=== PATIENT | male | born 1945 | race Caucasian/White ===

== ENCOUNTER 2016-06-22 16:47 | Emergency (ER) | payer MEDICARE ==
[2016-06-22 17:03] VITALS: BP 125/68
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
[2016-06-22] MEDS ORDERED: Acetaminophen TAB* 325 MG PO ONE (17:41)
--- NOTE | 2016-06-22 18:19 | RAD ---
INDICATION: Cough and fever COMPARISON: Chest x-ray dated August 04, 2015 TECHNIQUE: PA and lateral views of the chest were obtained. FINDINGS: The heart and mediastinum are normal in size and contour. At the bilateral lung bases there are symmetric subcentimeter densities that are most consistent with nipple shadows. The lungs are grossly clear. There is no evidence of large pleural effusion. Visualized bones are normal for the patient's age. There is no radiographic evidence of free air beneath the diaphragm IMPRESSION: No radiographic evidence of acute cardiopulmonary disease.
[2016-06-22] MEDS ORDERED: guaiFENesin/CODIEN 100MG-10MG* 5 ML UDC PO ONE (18:33)
== END 2016-06-22 18:45 | disposition home or self-care (01) ==
LOC: UCEAST 16:47
DX: J06.9 Acute upper respiratory infection, unspecified (principal); Z96.642 Presence of left artificial hip joint; Z87.891 Personal history of nicotine dependence
CPT/HCPCS: 71020; 99212; A9270-GY; G0463

== ENCOUNTER 2016-06-30 09:15 | Emergency (ER) | payer MEDICARE ==
[2016-06-30 09:43] VITALS: BP 114/72
[2016-06-30] MEDS ORDERED: Ipratropium 0.5MG/2.5ML NEB* 0.5 MG/2.5 ML NEB.SOLN INH ONE (09:53)
[2016-06-30] MEDS ORDERED: Albuterol 2.5 MG/3 ML NEB.SOL* (0.083%) INH ONE (09:53)
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
== END 2016-06-30 10:49 | disposition home or self-care (01) ==
LOC: UCEAST 09:15
DX: J20.9 Acute bronchitis, unspecified (principal); Z96.642 Presence of left artificial hip joint; Z87.891 Personal history of nicotine dependence
CPT/HCPCS: 99212; G0463; J7644

== ENCOUNTER 2016-07-21 10:36 | Emergency (ER) | payer MEDICARE ==
[2016-07-21 11:05] VITALS: BP 126/74
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
== END 2016-07-21 11:57 | disposition home or self-care (01) ==
LOC: UCEAST 10:36
DX: S86.912A Strain of unspecified muscle(s) and tendon(s) at lower leg level, left leg, initial encounter (principal); W18.40XA Slipping, tripping and stumbling without falling, unspecified, initial encounter; Y93.9 Activity, unspecified; Y92.9 Unspecified place or not applicable; M11.262 Other chondrocalcinosis, left knee; Z79.82 Long term (current) use of aspirin; Z96.642 Presence of left artificial hip joint; Z87.891 Personal history of nicotine dependence
CPT/HCPCS: 99211; G0463

== ENCOUNTER 2017-03-28 07:59 | Emergency (ER) | payer BC, MEDICARE ==
[2017-03-28 08:12] VITALS: BP 122/67
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
== END 2017-03-28 08:55 | disposition home or self-care (01) ==
LOC: UCEAST 07:59
DX: J06.9 Acute upper respiratory infection, unspecified (principal); Z87.891 Personal history of nicotine dependence
CPT/HCPCS: 99212; G0463

== ENCOUNTER 2017-04-15 10:44 | Emergency (ER) | payer BC ==
[2017-04-15 10:55] VITALS: BP 110/59
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
== END 2017-04-15 12:10 | disposition home or self-care (01) ==
LOC: UCEAST 10:44
DX: J01.90 Acute sinusitis, unspecified (principal); B96.89 Other specified bacterial agents as the cause of diseases classified elsewhere; R19.7 Diarrhea, unspecified; Z87.891 Personal history of nicotine dependence; K21.9 Gastro-esophageal reflux disease without esophagitis
CPT/HCPCS: 99212; G0463

== ENCOUNTER 2017-06-04 13:40 | Emergency (ER) | payer MEDICARE ==
[2017-06-04 14:55] VITALS: BP 110/79
--- NOTE | 2017-06-04 15:34 | RAD ---
INDICATION: Right hip pain. COMPARISON: There are no prior studies available for comparison. TECHNIQUE: An AP view of the pelvis and frontal and lateral views of the right hip were obtained. FINDINGS: The patient is status post total left hip replacement surgery. There is deformity of the proximal left femur most consistent with posttraumatic change. There is mild to moderate osteoarthritic change in the right hip. There is calcification adjacent to the lateral aspect of the right femoral head consistent with chondrocalcinosis or possibly a loose body. IMPRESSION: MILD TO MODERATE OSTEOARTHRITIC CHANGE IN THE RIGHT HIP. IN ADDITION THERE IS CALCIFICATION ADJACENT TO THE RIGHT FEMORAL HEAD SUGGESTIVE OF CHONDROCALCINOSIS OR POSSIBLY A LOOSE BODY. IF THE PATIENT'S SYMPTOMS PERSIST RECOMMEND MR IMAGING FOR FURTHER EVALUATION.
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
[2017-06-04] MEDS ORDERED: Ketorolac INJ* 30 MG/ML 1 ML VIAL IM ONE (15:54)
== END 2017-06-04 16:50 | disposition home or self-care (01) ==
LOC: UCEAST 13:40
DX: M16.11 Unilateral primary osteoarthritis, right hip (principal); Z87.891 Personal history of nicotine dependence
CPT/HCPCS: 96372; 99212; G0463; J1885

== ENCOUNTER 2017-06-11 11:55 | Emergency (ER) | payer MEDICARE ==
[2017-06-11 14:12] VITALS: BP 114/67
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
== END 2017-06-11 14:43 | disposition home or self-care (01) ==
LOC: UCEAST 11:55
DX: M25.551 Pain in right hip (principal); Z76.0 Encounter for issue of repeat prescription; Z79.82 Long term (current) use of aspirin; Z96.642 Presence of left artificial hip joint; Z87.891 Personal history of nicotine dependence
CPT/HCPCS: 99212; G0463

== ENCOUNTER 2017-08-05 10:52 | Inpatient (IN) | payer MEDICARE ==
--- NOTE | 2017-07-23 07:56 | HP ---
HISTORY AND PHYSICAL: DATE OF ADMISSION/SURGERY: 08/05/17 SURGEON: Halima Turner MD.* (DICTATED BY [facility]) PROCEDURE: Right total hip arthroplasty. CHIEF COMPLAINT: Right hip pain. HISTORY OF PRESENT ILLNESS: Mr. Gordon is a 71-year-old gentleman with complaints of right hip pain. He has failed conservative management and has elected to proceed with a right total hip arthroplasty, which is scheduled for 08/05/[address] Turner. PAST MEDICAL HISTORY: 1. Crohn's disease. 2. Acid reflux. PAST SURGICAL HISTORY: 1. Bowel resection x2. 2. Right knee surgery, unknown. 3. Left total hip arthroplasty. 4. ORIF of the left femur. 5. Tonsillectomy. CURRENT MEDICATIONS: 1. Questran. 2. Vitamin B12. 3. Aspirin 81 mg daily. 4. Lomotil. 5. Tamsulosin 0.4 mg daily. 6. Tramadol as needed. 7. Escitalopram 5 mg daily. 8. Iron. 9. Multivitamin. 10. Ranitidine 300 mg at bedtime. ALLERGIES: None. FAMILY HISTORY: Cancer, aneurysm and coronary artery disease. SOCIAL HISTORY: This is a 71-year-old gentleman who lives with his . He does not smoke or use drugs. Uses occasional alcohol. REVIEW OF SYSTEMS: A complete 14-point review of systems was reviewed with the patient, was all negative or noncontributory. PHYSICAL EXAMINATION GENERAL: He is well developed, well nourished, in no acute distress. VITAL SIGNS: He stands 5 feet 6 inches tall, weighs 197 pounds. His blood pressure is 124/81, his heart rate is 72. HEENT: Normocephalic, atraumatic. NECK: Supple. No palpable lymph nodes. PULMONARY: Lungs are clear to auscultation bilaterally. CARDIO: Regular rate and rhythm. Strong S1, S2. ABDOMEN: Soft, nontender, nondistended. NEUROLOGICAL: He is alert and oriented x3. Cranial nerves II through XII are intact. MUSCULOSKELETAL: Right lower extremity, the skin is intact. There are no open wounds or abrasions. He walks with an antalgic-type gait favoring his right hip. He has decreased internal and external rotation of the right hip, 2+ dorsalis pedis pulses and intact sensation. ASSESSMENT AND PLAN: Mr. Gordon is a 71-year-old gentleman with complaints of right hip pain secondary to end-stage osteoarthritis. He has failed conservative management and elected to proceed with a right total hip arthroplasty, which is scheduled for 08/05/[address] Turner discussed the risks and benefits of the surgery at today's visit and all of his questions were answered. He will follow with Dr. Turner 2 weeks after the surgery. [facility]GO AHN [id number]/[facility] #: [id number] MTDElly
[~2017-08-05 10:52] MED LIST: Buffered Lidocaine 0.9% SYRIN* 5 ML/SYR SYRINGE INTRADERM ONE; DiMENhydriNATE IV* 50 MG/ML VIAL IV PUSH PRN; Famotidine IV* 10 MG/ML 2 ML (20 mg) IV ONE; Midazolam* 1 MG/ML 10 ML VIAL (10 MG) ONE; Morphine INJ* 2 MG/ML 1 ML CARPUJECT IV PRN; Naloxone* 0.4 MG/ML 1 ML VIAL IV PRN; PROCHLORPERAZINE INJ 5 MG/ML 2 ML VIAL IV PRN; Ropivacaine 0.2% EPIDURAL* 200 MG/100 ML BAG EPIDURAL ONE; Scopolamine 1.5 mg* PATCH TRANSDERM PRN; fentaNYL* 50 MCG/ML 2 ML VIAL (100 MCG VIAL) ONE
[2017-08-05] MEDS ORDERED: Famotidine IV* 10 MG/ML 2 ML (20 mg) ONE (11:10)
[2017-08-05] MEDS ORDERED: ceFAZolin 2 GM PREMIX (*) 2 GM/50 ML BAG IVPB ONE (11:10)
--- NOTE | 2017-08-05 14:57 | RAD ---
INDICATION: Operative right hip film COMPARISON: June 04, 2017 TECHNIQUE: An intraoperative crosstable lateral images obtained FINDINGS: The single image obtained for sizing demonstrates initiation of right hip arthroplasty with placement of femoral stem for sizing.
[2017-08-05] MEDS ORDERED: EPHEDrine (Pressors)* 50 MG/ML VIAL ONE (15:04)
[2017-08-05] MEDS ORDERED: Dexamethasone IV* 4 MG/ML 1 ML (4 MG) ONE (15:04)
[2017-08-05] MEDS ORDERED: Phenylephrine INJ* 10 MG/ML 1 ML VIAL (10 MG) ONE (15:04)
[2017-08-05] MEDS ORDERED: Ondansetron INJ* 2 MG/ML VIAL ONE (15:04)
[2017-08-05] MEDS ORDERED: Lidocaine 2% PF * 5 ML VIAL ONE (15:04)
[2017-08-05] MEDS ORDERED: Cyclobenzaprine TAB* 10 MG PO PRN (15:32)
[2017-08-05] MEDS ORDERED: Bisacodyl SUPP* 10 MG SUPP PR PRN (15:32)
[2017-08-05] MEDS ORDERED: Ondansetron INJ* 2 MG/ML VIAL IV PRN (15:32)
[2017-08-05] MEDS ORDERED: Polyethylene Glycol 3350* 17 GM PACKET PO PRN (15:32)
[2017-08-05] MEDS ORDERED: Acetaminophen TAB* 325 MG PO PRN (15:32)
[2017-08-05] MEDS ORDERED: Ondansetron TAB* 4 MG PO PRN (15:32)
[2017-08-05] MEDS ORDERED: oxyCODONE/Acetamin 5/325 MG* TAB PO PRN (15:32)
[2017-08-05] MEDS ORDERED: diPHENhydraMINE PO* 25 MG PO PRN (15:32)
[2017-08-05] MEDS ORDERED: diPHENhydraMINE IV* 50 MG/ML 1 ml VIAL (BENADRYL) IV PRN (15:32)
[2017-08-05] MEDS ORDERED: Morphine INJ* 2 MG/ML 1 ML CARPUJECT IV PRN (15:32)
[2017-08-05] MEDS ORDERED: Magnesium Hydroxide LIQ* 30 ML UDC PO PRN (15:32)
[2017-08-05] MEDS ORDERED: traMADol TAB* 50 MG PO PRN (15:39)
[2017-08-05] MEDS ORDERED: fentaNYL* 50 MCG/ML 2 ML VIAL (100 MCG VIAL) ONE (16:00)
[2017-08-05] MEDS: fentaNYL* 50 MCG/ML 2 ML VIAL (100 MCG VIAL) IV PRN ×4 (16:01→16:10)
--- NOTE | 2017-08-05 16:50 | RAD ---
INDICATION: Status post right hip total arthroplasty TECHNIQUE: An AP view of the pelvis and 2 views of the right hip were obtained. FINDINGS: In the AP view of the bilateral hip prostheses are anatomically aligned. The right hip prosthesis is anatomically aligned in the AP and lateral projections. The visualized bones are intact and appropriately aligned. IMPRESSION: Anatomic alignment of recently installed right hip prosthesis.
[2017-08-05] MEDS ORDERED: Warfarin TAB(*) 6 MG PO ONE (17:00)
[2017-08-05] MEDS: oxyCODONE/Acetamin 5/325 MG* TAB PO PRN ×2 (17:14→21:05)
[2017-08-05] MEDS: Tamsulosin CAP* 0.4 MG PO SCH (17:54)
[2017-08-05] MEDS: Citalopram TAB* 10 MG PO SCH (17:55)
[2017-08-05] MEDS: ceFAZolin 1 GM in Dextrose (*) 1 GM/50 ML BAG IVPB SCH (21:05)
[2017-08-05] MEDS: Docusate CAP* 100 MG PO SCH (21:07)
[2017-08-05] MEDS: Diphenoxylat/Atrop 2.5-0.025M* 1 TAB PO SCH (21:07)
[2017-08-05] MEDS: Magnesium Hydroxide LIQ* 30 ML UDC PO SCH (21:07)
[2017-08-05] MEDS: Temazepam CAP* 15 MG PO PRN (23:46)
[2017-08-06] MEDS: ceFAZolin 1 GM in Dextrose (*) 1 GM/50 ML BAG IVPB SCH ×2 (04:50→12:36)
[2017-08-06 05:44] LABS: Hematocrit 28 % (42-52); Hemoglobin 9.4 g/dl (14.0-18.0); Mean Platelet Volume 7.5 um3 (7.4-10.4); Platelet Count 233 10^3/ul (150-450)
[2017-08-06 05:53] LABS: INR 1.1 (0.77-1.02)
[2017-08-06 06:04] LABS: EGFR Non-African American 87.2 (>60)
[2017-08-06] MEDS: oxyCODONE/Acetamin 5/325 MG* TAB PO PRN ×2 (06:22→12:36)
[2017-08-06] MEDS: Magnesium Hydroxide LIQ* 30 ML UDC PO SCH ×2 (08:19→21:26)
[2017-08-06] MEDS: oxyCODONE TAB* 5 MG TAB PO PRN ×3 (08:19→21:45)
[2017-08-06] MEDS: Docusate CAP* 100 MG PO SCH ×2 (08:19→21:26)
[2017-08-06] MEDS: Famotidine TAB* 20 MG PO SCH (08:19)
[2017-08-06] MEDS: Cholestyramine Resin* 4 GM POWDER PO SCH (08:21)
[2017-08-06] MEDS: Diphenoxylat/Atrop 2.5-0.025M* 1 TAB PO SCH ×3 (08:32→21:26)
--- NOTE | 2017-08-06 09:45 | PN ---
Progress Note - Progress Note Date of Service: 08/06/17 SOAP: Subjective: []Patient seen out of bed in chair. He is s/p right total hip replacement on . He feels well with zero hip pain at this time. Denies CP, SOB, dizziness, nausea or leg numbness. Objective: [] Vital Signs Temp 97.9 F 08/06/17 07:20 Pulse 88 08/06/17 07:20 Resp 18 08/06/17 08:25 BP 117/60 08/06/17 07:20 Pulse Ox 96 08/06/17 07:20 Intake & Output 08/05/17 08/06/17 08/06/17 18:59 06:59 18:59 Intake Total 4050 1040 210 Output Total 1450 1550 495 Balance 2600 -510 -285 Weight 202 lb 12.8 oz Intake: IV Fluids 4050 LR 4000 NS 50ML, Cefazolin 2G 50 Oral 1040 210 Output: Urine 495 Angelo 450 1550 Estimated Blood Loss 1000 Other: # Bowel Movements 0 Laboratory Last Values Hgb 9.4 g/dl (14.0-18.0) L 08/06/17 04:54 Hct 28 % (42-52) L 08/06/17 04:54 Plt Count 233 10^3/ul (150-450) 08/06/17 04:54 MPV 7.5 um3 (7.4-10.4) 08/06/17 04:54 INR (Anticoag Therapy) 1.10 (0.77-1.02) H 08/06/17 04:54 Sodium 137 mmol/L (139-145) L 08/06/17 04:54 Potassium 4.2 mmol/L (3.5-5.0) 08/06/17 04:54 Chloride 104 mmol/L (101-111) 08/06/17 04:54 Carbon Dioxide 26 mmol/L (22-32) 08/06/17 04:54 Anion Gap 7 mmol/L (2-11) 08/06/17 04:54 BUN 14 mg/dL (6-24) 08/06/17 04:54 Creatinine 0.86 mg/dL (0.67-1.17) 08/06/17 04:54 Est GFR ( Amer) 112.1 (>60) 08/06/17 04:54 Est GFR (Non-Af Amer) 87.2 (>60) 08/06/17 04:54 BUN/Creatinine Ratio 16.3 (8-20) 08/06/17 04:54 Glucose 129 mg/dL (70-100) H 08/06/17 04:54 Calcium 8.6 mg/dL (8.6-10.3) 08/06/17 04:54 General: Well appearing, NAD RLE: Dressing of right hip CDI without surrounding erythema or edema. DF/PF intact. Sensation intact distally. DP/PT 2+ and capillary refill less than two second distally. BL LE: Calves supple and nontender without erythema, edema or palpable cords Assessment: []POD 1 sp right total hip arthroplasty 08/05 Dr Turner Plan: []WBAT PT/OT Lovenox, coumadin 6 mg today Plan for DC home tomorrow
[2017-08-06] MEDS: Enoxaparin(*) 40 MG/0.4 ML SYR SUBCUT SCH (12:36)
--- NOTE | 2017-08-06 15:24 | OP ---
DATE OF OPERATION: 08/05/17 - ROOM #341 DATE OF : 41 SURGEON: Haliam Turner MD CARE PROGRAM RESIDENT: MARGO Price. Ms. Andrews did help throughout the procedure with preparation of the leg, wound retraction, manipulation of the hip , and wound closure. ANESTHESIOLOGIST: Dr. Roger. ANESTHESIA: Spinal. PRE-OP DIAGNOSIS: Severe end-stage degenerative osteoarthritis of the right hip joint. POST-OP DIAGNOSIS: Severe end-stage degenerative osteoarthritis of the right hip joint. OPERATIVE PROCEDURE: Right total hip arthroplasty. COMPLICATIONS: None. ESTIMATED BLOOD LOSS: 400 cc. SPECIMENS: Femoral head and acetabular reamings sent to Pathology. HARDWARE USED: This is uncemented Cecilia total hip arthroplasty hardware. For the cup, a Tritanium cluster hole shell 54E. Two screws were used, these were torque 6.5 cancellous bone screws of length 16 mm and 20 mm. For the polyethylene, a Trident X3, 10-degree polyethylene insert 36E. For the stem, an Accolade TMZF size 2.5 with a 127-degree neck, a Biolox delta ceramic V40 femoral head 36 +2.5 was used for the femoral head. BRIEF HISTORY/INDICATIONS: Mr. Gordon is a 71-year-old with several months of increasingly severe right hip pain. Radiographs confirmed severe arthritis. He failed conservative treatment with anti-inflammatories, pain medications, and physical therapy. Due to continued pain and decreased quality of life, he elected to undergo right total hip arthroplasty. Informed consent was obtained from the patient. He understood the risks of surgery included but were not limited to bleeding, infection, damage to nearby structures, continued pain, need for further surgery, intraoperative fracture, nerve palsy, hardware failure or loosening, dislocation, leg length discrepancy, stroke, heart attack , blood clot, and . He wished to proceed. INTRAOPERATIVE FINDINGS: Intraoperatively, the patient was noted to have complete loss of cartilage along the femoral head and acetabulum. There was significant osteophyte formation around the acetabulum. DESCRIPTION OF PROCEDURE: Mr. Gordon was identified in the preanesthesia unit. His right lower extremity was marked as the correct operative site. Informed consent was signed and placed in the chart. The patient was taken to the operating room and placed under spinal anesthesia. A Angelo catheter was placed. The patient was placed in the left lateral decubitus position on the peg board. All bony prominences were well padded. Right lower extremity was prepped and draped in the usual sterile fashion. Preop time-out was made to correctly identify the patient side and site. Appropriate perioperative antibiotics were given within 1 hour of incision. A 14-cm standard posterior hip incision was made with a 10 blade and carried down to the lateral fascia layer. Lateral fascia layer was then excised in line of the skin incision. Charnley retractor was placed. The piriformis and conjoint tendons were identified. These were elevated off the posterolateral femur using electrocautery and tagged with #5 Ethibond. Next, electrocautery was used to make a standard posterolateral capsular flap and this was also tagged with #5 Ethibond. The hip was carefully dislocated. Lesser troch to the center of the femoral head measured 52 mm. Oscillating saw was used to make the appropriate femoral neck cut. The femoral head was carefully removed. The femur was retracted anteriorly. After appropriate placement of retractors, the acetabulum was well visualized. A long-handled knife was used to sharply remove any remaining labrum from the acetabular rim. The acetabulum was sequentially reamed up to a size 53. The 53 reamer obtained bleeding subchondral bone bed. The 53 trial had good fit. Final insert chosen was a Tritanium cluster hole shell 54E. This was impacted into the acetabulum. Good stability was achieved as well as appropriate anteversion and abduction angle. A single 60-mm screw and a single 20-mm screw were placed in the superior posterior quadrant for extra stability. The liner chosen was a Trident X3 10- degree polyethylene liner 36E. This was locked in position. This was impacted into the acetabular cup. Stability of the liner was checked and rechecked, and noted to be stable. Next, attention was turned to preparation of the proximal femur. A canal finder was used to enter the proximal femur. The proximal femur was sequentially broached up to a size 2.5. The 2.5 broach had excellent stability and appropriate anteversion. A 127 neck trial with a 36 +0 head trial was chosen. This measured 50 mm. Therefore, a 36 +2.5 head trial was chosen. This measured 52 mm. The hip was released and taken through a range of motion. The hip was stable in all positions. Soft tissue tension was deemed to be appropriate as was leg length. The hip was carefully dislocated. All trials were removed. The final implant chosen was an Accolade TMZF size 2.5 with a 127 degree neck. Final head chosen was a Biolox ceramic V40 femoral head 36 + 2.5. The femoral stem was impacted into the canal without difficulty. Excellent stability and appropriate anteversion were obtained. The head was then impacted down to the femoral neck. The lesser troch to the center of the femoral head, final measurement was 51 mm. The hip was carefully reduced. Soft tissue tension was more appropriate. The hip was carefully reduced. The hip was taken through a range of motion and was stable in all positions. The hip was copiously irrigated with sterile saline. Previously tagged capsule and tendons were reapproximated to the posterolateral femur through 2 trochanteric drill holes. The lateral fascia layer was closed using interrupted #1 Vicryl. The rest of the incision was closed in a layered fashion using 0 and 2- 0 Vicryl. Skin was closed using running 3-0 Monocryl and Dermabond. Sterile Adaptic, 4x4's, and paper tape were used to cover the incision. The patient's anesthesia was reversed without difficulty. He was taken to the PACU in stable condition. Intended weightbearing will be weightbearing as tolerated. Intended DVT prophylaxis will be Coumadin with a Lovenox bridge. [id number]/[facility] #: [id number] SHAYAN
[2017-08-06] MEDS ORDERED: Warfarin TAB(*) 6 MG PO SCH (17:00)
[2017-08-06] MEDS: Citalopram TAB* 10 MG PO SCH (18:03)
[2017-08-06] MEDS: Tamsulosin CAP* 0.4 MG PO SCH (18:03)
[2017-08-06] MEDS: Temazepam CAP* 15 MG PO PRN (21:30)
[2017-08-07 05:58] LABS: Hematocrit 25 % (42-52); Hemoglobin 8.7 g/dl (14.0-18.0); Mean Platelet Volume 7.5 um3 (7.4-10.4); Platelet Count 222 10^3/ul (150-450)
[2017-08-07 06:03] LABS: INR 1.04 (0.77-1.02)
[2017-08-07] MEDS: Cholestyramine Resin* 4 GM POWDER PO SCH (08:23)
[2017-08-07] MEDS: Diphenoxylat/Atrop 2.5-0.025M* 1 TAB PO SCH ×3 (08:23→20:32)
[2017-08-07] MEDS: Docusate CAP* 100 MG PO SCH ×2 (08:24→20:35)
[2017-08-07] MEDS: oxyCODONE/Acetamin 5/325 MG* TAB PO PRN ×4 (08:24→22:07)
[2017-08-07] MEDS: Famotidine TAB* 20 MG PO SCH (08:24)
[2017-08-07] MEDS ORDERED: NS 0.9% 1000 ML* 500 ML IV SCH (10:30)
[2017-08-07] MEDS: Magnesium Hydroxide LIQ* 30 ML UDC PO SCH ×2 (10:31→20:35)
[2017-08-07] MEDS ORDERED: NS 0.9% 500 ML* 500 ML IV ONE (11:00)
--- NOTE | 2017-08-07 12:08 | PN ---
Progress Note - Progress Note Date of Service: 08/07/17 SOAP: Subjective: 71 y/o male s/p R ELY by DR. Turner 08/05. Patient had episodes of dizziness this AM with + orthostatic hypotension. VSS, afebrile overnight. Objective: General- Well appearing, NAD, AO Resting in bed comfortably MSK- RLE- DF/PF = b/l, PT 2+, negative homans sign b/l, dressing changed this AM by Dr. Turner, viewed- minimal ecchymosis, no drainage noted, no induration. Vital Signs Temp 99.2 F 08/07/17 10:59 Pulse 115 08/07/17 11:05 Resp 16 08/07/17 10:59 BP 108/53 08/07/17 11:05 Pulse Ox 95 08/07/17 11:05 Intake & Output 08/06/17 08/07/17 08/07/17 18:59 06:59 18:59 Intake Total 930 2620 150 Output Total 920 1050 150 Balance 10 1570 0 Intake: Oral 930 2620 150 Output: Urine 920 1050 150 Other: # Bowel Movements 0 0 Assessment: Stable 71 y/o male s/p R ELY by DR. Turner 08/05. Plan: - DVT prophylaxis- lovenox, coumadin 9mg tonight. - Continue PT/ OT - fall precautions - Follow up with Dr. Turner within 10-14 days - H&H - post-op anemia, stable - post-op IV ABX - complted. - Post-op orthostatic hypotension- Receiving bolus, refused blood but will accept if not improved by this afternoon. - Possible D/C to home tomorrow. Acetaminophen (Tylenol Tab*) 650 mg PO Q4H PRN PRN Reason: PAIN OR TEMPERATURE Bisacodyl (Dulcolax Supp*) 10 mg [place] DAILY PRN PRN Reason: constipation Cholestyramine Resin (Questran*) 8 gm PO QAM [facility] Last Admin: 08/07/17 08:23 Dose: Not Given Citalopram Hydrobromide (Celexa Tab*) 10 mg PO QPM [facility] PRN Reason: Protocol Last Admin: 08/06/17 18:03 Dose: 10 mg Cyclobenzaprine HCl (Flexeril Tab*) 10 mg PO TID PRN PRN Reason: SPASMS Last Admin: 08/07/17 10:30 Dose: 10 mg Diphenhydramine HCl (Benadryl Iv*) 25 mg IV Q6H PRN PRN Reason: itching Diphenhydramine HCl (Benadryl Po*) 25 mg PO Q6H PRN PRN Reason: itching Last Admin: 08/05/17 21:07 Dose: 25 mg Diphenoxylate HCl/Atropine (Lomotil Tab*) 2 tab PO TID [facility] Last Admin: 08/07/17 08:23 Dose: Not Given Docusate Sodium (Colace Cap*) 100 mg PO BID [facility] Last Admin: 08/07/17 08:24 Dose: 100 mg Enoxaparin Sodium (Lovenox(*)) 40 mg SUBCUT Q24H [facility] Last Admin: 08/06/17 12:36 Dose: 40 mg Famotidine (Pepcid Tab*) 40 mg PO QAM [facility] PRN Reason: Protocol Last Admin: 08/07/17 08:24 Dose: 40 mg Lactated Ringer's (Lactated Ringers 1000 Ml Bag*) 1,000 mls @ 100 mls/hr IV PER RATE [facility] Last Admin: 08/05/17 17:01 Dose: 100 mls/hr Lactulose (Lactulose*) 30 ml PO Q6H PRN PRN Reason: constipation Magnesium Hydroxide (Milk Of Magnesia Liq*) 30 ml PO BID [facility] Last Admin: 08/07/17 10:31 Dose: 30 ml Magnesium Hydroxide (Milk Of Magnesia Liq*) 30 ml PO Q6H PRN PRN Reason: constipation Morphine Sulfate (Morphine Inj (Syringe)*) 2 mg IV Q2H PRN PRN Reason: PAIN - BREAKTHROUGH Ondansetron HCl (Zofran Inj*) 4 mg IV Q6H PRN PRN Reason: nausea Ondansetron HCl (Zofran Tab*) 4 mg PO Q6H PRN PRN Reason: NAUSEA Oxycodone HCl (Roxycodone Tab*) 10 mg PO Q4H PRN PRN Reason: PAIN Last Admin: 08/06/17 21:45 Dose: 10 mg Oxycodone/Acetaminophen (Percocet 5/325 Tab*) 2 tab PO Q4H PRN PRN Reason: PAIN Last Admin: 08/07/17 08:24 Dose: 2 tab Oxycodone/Acetaminophen (Percocet 5/325 Tab*) 1 tab PO Q4H PRN PRN Reason: PAIN Polyethylene Glycol/Electrolytes (Miralax*) 17 gm PO DAILY PRN PRN Reason: Constipation Tamsulosin HCl (Flomax Cap*) 0.8 mg PO QPM [facility]IS Last Admin: 08/06/17 18:03 Dose: 0.8 mg Temazepam (Restoril Cap*) 15 mg PO BEDTIME PRN PRN Reason: INSOMNIA Last Admin: 08/06/17 21:30 Dose: 15 mg Tramadol HCl (Ultram*) 50 mg PO Q8HR PRN PRN Reason: PAIN Warfarin Sodium (Coumadin Tab(*)) 8 mg PO ONCE@1700 ONE PRN Reason: Protocol Stop: 08/07/17 17:01
[2017-08-07] MEDS: Enoxaparin(*) 40 MG/0.4 ML SYR SUBCUT SCH (12:27)
[2017-08-07] MEDS ORDERED: Warfarin TAB(*) 4 MG PO ONE (17:00)
[2017-08-07] MEDS: Tamsulosin CAP* 0.4 MG PO SCH (17:09)
[2017-08-07] MEDS: Citalopram TAB* 10 MG PO SCH (17:09)
--- NOTE | 2017-08-07 17:23 | CONS ---
CONSULTATION REPORT: DATE OF CONSULT: 08/07/17 ATTENDING PHYSICIAN: Halima Turner MD CONSULTING PHYSICIAN: Keo Arthur MD (dictation provided by Bonnie Strickland NP) REASON FOR CONSULT: Presyncope. HISTORY OF PRESENT ILLNESS: Mr. Gordon is a 71-year-old male with a past medical history of Crohn's disease and GERD who presented to the hospital on for right total hip arthroplasty. Please see the dictated H and P from Dr. Turner for complete details. In brief, the patient went for surgery on 08/05 and was reported to have tolerated the surgery well. There was reported to be about 400 estimated blood loss during that procedure. The patient was doing well until today when he went to get up out of bed, he became suddenly quite lightheaded and did not feel well. His blood pressure was checked and it was noted to be systolically about in the 90s. He was lied back down on the bed and then IV fluids were started and orthostatic vitals were rechecked. The patient is not orthostatic by vital signs criteria. His blood pressure is running about 108/53 with a heart rate of around 100. IV fluids continue. PAST MEDICAL HISTORY: 1. Crohn's. 2. GERD. PAST SURGICAL HISTORY: 1. Bowel resection x2. 2. Right knee surgery. 3. Left total hip arthroplasty. 4. ORIF of the left femur. 5. Tonsillectomy. MEDICATIONS: As outpatient are: 1. Aspirin 81 mg p.o. q.a.m. 2. Iron 1 tab p.o. q.a.m. 3. Multivitamin with mineral 1 tab p.o. q.a.m. 4. Vitamin B12 injections monthly. 5. Cholestyramine 2 packets p.o. q.a.m. 6. Lomotil 2 tabs p.o. t.i.d. 7. Escitalopram 5 mg p.o. q. p.m. 8. Ranitidine 300 mg p.o. q. a.m. 9. Tamsulosin 0.8 mg p.o. q. p.m. 10. Tramadol 50 mg p.o. q.8 hours p.r.n. ALLERGIES: No known drug allergies. FAMILY HISTORY: Reviewed and noncontributory. SOCIAL HISTORY: No report of alcohol, tobacco, or drug use. His will be the healthcare proxy. REVIEW OF SYSTEMS: A 14-point review of systems was completed with Mr. Gordon and all those not mentioned above were negative. PHYSICAL EXAM: Vital Signs: Temperature 99.2, pulse rate 91, respiratory rate 16, O2 saturation 96% on room air, and blood pressure 100/48. General: Mr. Gordon is lying in the bed, he says he feels well now and has no symptoms of lightheadedness or dizziness or nausea. He appears in no acute distress. Neuro : He is alert, he is oriented x3, he moves all extremities equally. There is no facial asymmetry or focal weakness. Extraocular movements are intact. Heart : S1 and S2. No murmurs, rubs, or gallops and regular. Lungs are clear to auscultation bilaterally. No accessory muscle use and good aeration. Abdomen is soft and nontender with bowel sounds positive x4. Extremities: No cyanosis or edema. Skin is intact. DIAGNOSTIC STUDIES/LAB DATA: Hemoglobin preop was 13.5, it is 8.7 today. INR is 1.04. Sodium 137, potassium 4.2, chloride 104, serum bicarbonate 26, BUN 14 , creatinine 0.86, glucose 129. ASSESSMENT/PLAN: Mr. Gordon is a 71-year-old male with a past medical history of Crohn's and gastroesophageal reflux disease who presented to the hospital on 08/05/17 for right total hip arthroplasty. Our plans and recommendations are as follows: 1. Right total hip arthroplasty. The patient tolerated the procedure well, but is now presyncopal on standing. His hemoglobin has fallen to 8.7, IV fluid bolus is underway. At this point, the patient is hesitant to consent to transfusion as he is concerned about risk associated with that. I do not think that a transfusion is necessary. His hemoglobin is 8.7, but I do think that this is likely contributing to his symptoms. Our plan at this point is to hydrate with IV fluid bolus and to recheck his symptoms and then to discuss again the possibility for possible transfusion. Otherwise, the patient will continue with PT/OT as tolerated and have a bowel regimen with pain medication. 2. DVT prophylaxis with warfarin and Lovenox. 3. Code status is full code. TIME SPENT: Approximately 45 minutes were spent on the consultation of this patient, more than half the time spent with the patient at the bedside reviewing the events leading up to and during this hospitalization, performing the physical examination, and reviewing the plan of care. BONNIE STRICKLAND NP [id number]/[facility] #: [id number] SHAYAN
[2017-08-07] MEDS: Temazepam CAP* 15 MG PO PRN (22:07)
[2017-08-08 04:11] VITALS: BP 115/63
[2017-08-08 05:26] LABS: Hematocrit 25 % (42-52); Hemoglobin 8.5 g/dl (14.0-18.0); Mean Platelet Volume 7.3 um3 (7.4-10.4); Platelet Count 230 10^3/ul (150-450)
[2017-08-08 05:30] LABS: INR 1.13 (0.77-1.02)
[2017-08-08] MEDS ORDERED: Scopolamine PATCH Remove* 1 NOTE MISC PATCH OFF ONE (06:42)
--- NOTE | 2017-08-08 07:52 | PN ---
Progress Note - Progress Note Date of Service: 08/08/17 SOAP: Subjective: resting comfortably with no complaints Objective: Vital Signs Temp Pulse Resp BP Pulse Ox 98.7 F 87 16 115/63 98 08/08/17 03:55 08/08/17 03:55 08/08/17 03:55 08/08/17 03:55 08/08/17 03:55 Laboratory Last Values Hgb 8.5 g/dl (14.0-18.0) L 08/08/17 05:02 Hct 25 % (42-52) L 08/08/17 05:02 Plt Count 230 10^3/ul (150-450) 08/08/17 05:02 MPV 7.3 um3 (7.4-10.4) L 08/08/17 05:02 INR (Anticoag Therapy) 1.13 (0.77-1.02) H 08/08/17 05:02 Sodium 137 mmol/L (139-145) L 08/06/17 04:54 Potassium 4.2 mmol/L (3.5-5.0) 08/06/17 04:54 Chloride 104 mmol/L (101-111) 08/06/17 04:54 Carbon Dioxide 26 mmol/L (22-32) 08/06/17 04:54 Anion Gap 7 mmol/L (2-11) 08/06/17 04:54 BUN 14 mg/dL (6-24) 08/06/17 04:54 Creatinine 0.86 mg/dL (0.67-1.17) 08/06/17 04:54 Est GFR ( Amer) 112.1 (>60) 08/06/17 04:54 Est GFR (Non-Af Amer) 87.2 (>60) 08/06/17 04:54 BUN/Creatinine Ratio 16.3 (8-20) 08/06/17 04:54 Glucose 129 mg/dL (70-100) H 08/06/17 04:54 Calcium 8.6 mg/dL (8.6-10.3) 08/06/17 04:54 Blood Type A Positive 08/07/17 05:28 Antibody Screen Negative 08/07/17 05:28 Crossmatch See Detail 08/07/17 05:28 incision: c/d; dressing changed PE: NVI Assessment: s/p right ELY Plan: 1) continue PT/OT- WBAT 2) Lovenox/coumadin for DVT prophylaxis 3) home today; RTC 2 weeks
[2017-08-08] MEDS: oxyCODONE/Acetamin 5/325 MG* TAB PO PRN (08:03)
[2017-08-08] MEDS: Magnesium Hydroxide LIQ* 30 ML UDC PO SCH (08:30)
[2017-08-08] MEDS: Docusate CAP* 100 MG PO SCH (08:30)
[2017-08-08] MEDS: Famotidine TAB* 20 MG PO SCH (08:48)
[2017-08-08] MEDS: Cholestyramine Resin* 4 GM POWDER PO SCH (08:48)
[2017-08-08] MEDS: Diphenoxylat/Atrop 2.5-0.025M* 1 TAB PO SCH (08:48)
--- NOTE | 2017-08-08 10:03 | PN ---
Subjective Date of Service: 08/08/17 Objective Active Medications: Acetaminophen (Tylenol Tab*) 650 mg PO Q4H PRN Bisacodyl (Dulcolax Supp*) 10 mg [place] DAILY PRN Cholestyramine Resin (Questran*) 8 gm PO QAM [facility] Citalopram Hydrobromide (Celexa Tab*) 10 mg PO QPM [facility] Cyclobenzaprine HCl (Flexeril Tab*) 10 mg PO TID PRN Diphenhydramine HCl (Benadryl Iv*) 25 mg IV Q6H PRN Diphenhydramine HCl (Benadryl Po*) 25 mg PO Q6H PRN Diphenoxylate HCl/Atropine (Lomotil Tab*) 2 tab PO TID [facility] Docusate Sodium (Colace Cap*) 100 mg PO BID [facility] Enoxaparin Sodium (Lovenox(*)) 40 mg SUBCUT Q24H [facility] Famotidine (Pepcid Tab*) 40 mg PO QAM [facility] Lactated Ringer's (Lactated Ringers 1000 Ml Bag*) 1,000 mls @ 100 mls/hr IV PER RATE [facility] Lactulose (Lactulose*) 30 ml PO Q6H PRN Magnesium Hydroxide (Milk Of Magnesia Liq*) 30 ml PO BID [facility] Magnesium Hydroxide (Milk Of Magnesia Liq*) 30 ml PO Q6H PRN Morphine Sulfate (Morphine Inj (Syringe)*) 2 mg IV Q2H PRN Ondansetron HCl (Zofran Inj*) 4 mg IV Q6H PRN Ondansetron HCl (Zofran Tab*) 4 mg PO Q6H PRN Oxycodone HCl (Roxycodone Tab*) 10 mg PO Q4H PRN Oxycodone/Acetaminophen (Percocet 5/325 Tab*) 2 tab PO Q4H PRN Oxycodone/Acetaminophen (Percocet 5/325 Tab*) 1 tab PO Q4H PRN Polyethylene Glycol/Electrolytes (Miralax*) 17 gm PO DAILY PRN Tamsulosin HCl (Flomax Cap*) 0.8 mg PO QPM LUIS Temazepam (Restoril Cap*) 15 mg PO BEDTIME PRN Tramadol HCl (Ultram*) 50 mg PO Q8HR PRN Vital Signs - 8 hr 03/31/18 03/31/18 03/31/18 03:55 08:03 08:48 Temperature 98.7 F Pulse Rate 87 Respiratory 16 18 18 Rate Blood Pressure 115/63 (mmHg) O2 Sat by Pulse 98 Oximetry Oxygen Devices in Use Now: None Result Diagrams: 08/08/17 05:02 08/06/17 04:54 Assess/Plan/Problems-Billing Assessment: Mr. Gordon is a 71 yo male with a history of crohn's who was admitted on 08/05/17 for an elective right total hip arthroplasty; hospital medicine was consulted regarding pre-syncope. - Patient Problems (1) Pre-syncope (2) S/P hip replacement Comment: - Management per ortho. - Pain meds prn with bowel regimen. - PT/OT. - Hgb 8.5 (3) Crohn disease (4) DVT prophylaxis (5) Full code status Status and Disposition: Consult.
[2017-08-08] MEDS: Enoxaparin(*) 40 MG/0.4 ML SYR SUBCUT SCH (10:55)
--- NOTE | 2017-08-09 00:43 | DS ---
AMENDED REPORT NOW INCLUDES COSIGNER DESIGNATION - ESIGNED BEFORE ADJUSTMENT DISCHARGE SUMMARY: DATE OF ADMISSION: 08/05/17 DATE OF DISCHARGE: 08/08/17 ATTENDING PROVIDER: Dr. Turner * (DICTATED BY MARGO AHN) PRINCIPAL DIAGNOSIS: Right hip osteoarthritis. DISCHARGE DIAGNOSIS: Right hip osteoarthritis. HISTORY OF PRESENT ILLNESS: Mr. Gordon is a 71-year-old gentleman with complaints of right hip pain secondary to end-stage osteoarthritis. He has failed conservative management and elected to proceed with a right total hip arthroplasty. HOSPITAL COURSE: Mr. Gordon is a 71-year-old gentleman, he was admitted electively to the hospital on 08/05/17 and underwent a right total hip arthroplasty. He tolerated the procedure well. Postoperatively, he was placed on Lovenox and Coumadin for DVT prophylaxis. He made daily improvements with physical therapy. On postoperative day#1, his H and H was 9 and 28; on postoperative day 2, 8.7 and 25; on postoperative day 3, 8.5 and 25. His INR went from 1.1 to 1.13 at the time of discharge. The incision was clean and dry and he was afebrile and his vital signs were stable. He was discharged home in stable condition on 08/08/17. MEDICATIONS UPON DISCHARGE: 1. Aspirin 325 twice daily for 4 weeks. 2. Percocet 5/325 one to two tabs every 4 to 6 hours for pain. 3. Flexeril 10 mg 2 to 3 tabs daily as needed for spasms. 4. Temazepam 15 mg 1 q.h.s. as needed for sleep. 5. Questran as needed. 6. Celexa 10 mg daily. 7. Lomotil as needed. 8. Pepcid 40 mg daily. 9. Flomax 0.8 mg daily. PHYSICAL EXAMINATION UPON DISCHARGE: His wound was clean, dry, and healing well. His lower extremity muscle group strengths are intact at 5/5. He has 2+ dorsalis pedis pulses and intact sensation. DISCHARGE INSTRUCTIONS: He was discharged home in stable condition. His dressing was changed prior to discharge. He was asked to keep the new dressing intact until Thursday. At that time, he could remove and take a shower and let soap and water run over the incision, pat the area dry that starting Thursday. He could either leave it open to air or redress with 4x4s and tape. He was asked to take aspirin 325 twice daily for 4 weeks of DVT prophylaxis. He was given Percocet and Flexeril for pain. He was given temazepam to help him sleep. He will follow up with Dr. Turner in 2 weeks. We have asked him to call sooner with any questions or concerns. MARGO AHN [id number]/[facility] #: [id number] SHAYAN
== END 2017-08-08 11:25 | disposition home or self-care (01) | DRG 470 ==
LOC: AA 10:52 → SSU 16:43
PROVIDERS: ADMIT Orthopaedic Surgery Adult Reconstructive Orthopaedic Surgery; ATTEND Orthopaedic Surgery Adult Reconstructive Orthopaedic Surgery
PROC: 0SR904A Replacement of Right Hip Joint with Ceramic on Polyethylene Synthetic Substitute, Uncemented, Open Approach (ICD-10-PCS; principal; 2017-08-07)
PROC: 30233N1 Transfusion of Nonautologous Red Blood Cells into Peripheral Vein, Percutaneous Approach (ICD-10-PCS; 2017-08-07)
DX: M16.11 Unilateral primary osteoarthritis, right hip (principal); K50.90 Crohn's disease, unspecified, without complications; K21.9 Gastro-esophageal reflux disease without esophagitis; Z96.642 Presence of left artificial hip joint; M25.751 Osteophyte, right hip; R55 Syncope and collapse; Z79.82 Long term (current) use of aspirin; Z79.899 Other long term (current) drug therapy; Z80.9 Family history of malignant neoplasm, unspecified; Z82.49 Family history of ischemic heart disease and other diseases of the circulatory system; D50.0 Iron deficiency anemia secondary to blood loss (chronic)
CPT/HCPCS: 36415; 72170; 80048; 85014; 85018; 85049; 85610; 86850; 86900; 86901; A9270-GY; C1713; C1776; G8978-GP-CI; G8979-GP-CH; G8987-GO-CJ; G8987-GO-CK; G8988-GO-CI; J0690; J1100; J1650; J2250; J2405; J2795; J3010

== ENCOUNTER 2017-11-30 15:28 | Emergency (ER) | payer MEDICARE ==
[2017-11-30 15:50] VITALS: BP 132/78
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
--- NOTE | 2017-11-30 16:32 | RAD ---
INDICATION: Left knee pain and swelling. COMPARISON: Comparison is made with a prior x-ray study of the pelvis and hips from October 07, 2017. TECHNIQUE: 4 views of the left knee were obtained. FINDINGS: The bones are normal alignment. There are hypertrophic changes partially visualized on this study in the distal femur possibly related to an old fracture. There is a small joint effusion present. There is mild to moderate osteoarthritic change in the patellofemoral and medial compartments and chondrocalcinosis in the medial and lateral compartments. IMPRESSION: 1. SMALL JOINT EFFUSION. 2. MILD TO MODERATE OSTEOARTHRITIC CHANGE. 3. CHONDROCALCINOSIS. 4. HYPERTROPHIC BONY CHANGES IN THE DISTAL FEMUR PARTIALLY VISUALIZED ON THIS STUDY POSSIBLY RELATED TO AN OLD FRACTURE OF THE FEMUR. RECOMMEND CLINICAL CORRELATION.
== END 2017-11-30 17:05 | disposition home or self-care (01) ==
LOC: UCEAST 15:28
DX: M25.562 Pain in left knee (principal); M25.462 Effusion, left knee; M19.072 Primary osteoarthritis, left ankle and foot; M11.262 Other chondrocalcinosis, left knee; M89.352 Hypertrophy of bone, left femur
CPT/HCPCS: 99212; G0463

== ENCOUNTER 2018-06-17 09:12 | Inpatient (IN) | payer MEDICARE ==
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
[~2018-06-17 09:12] MED LIST changes: -Buffered Lidocaine 0.9% SYRIN* 5 ML/SYR SYRINGE INTRADERM ONE; +Buffered Lidocaine 1% SYRIN* 1 ML/SYRINGE INTRADERM ONE; +Dexamethasone IV* 4 MG/ML 1 ML (4 MG) IV SLOW PU ONE; -DiMENhydriNATE IV* 50 MG/ML VIAL IV PUSH PRN; +Lactated Ringers 1000 ML Bag* 1,000 ML IV SCH; -Midazolam* 1 MG/ML 10 ML VIAL (10 MG) ONE; -Morphine INJ* 2 MG/ML 1 ML CARPUJECT IV PRN; -Naloxone* 0.4 MG/ML 1 ML VIAL IV PRN; -PROCHLORPERAZINE INJ 5 MG/ML 2 ML VIAL IV PRN; -Ropivacaine 0.2% EPIDURAL* 200 MG/100 ML BAG EPIDURAL ONE; -Scopolamine 1.5 mg* PATCH TRANSDERM PRN; +Tranexamic Acid 1,000 MG in NS 0.9% 50 ML* (outpatient use) IV SCH; -fentaNYL* 50 MCG/ML 2 ML VIAL (100 MCG VIAL) ONE
--- OUTSIDE RECORDS SUMMARY | 2018-06-17 09:16 | XMS REPORT | Continuity of Care Document ---
:1945 External Reference #:[id number] Author Name Gracie Lawrence Care Team Providers Name Role Phone Tom Lau III, MD Primary Care Physician Unavailable Payers Type Date Identification Numbers Payment Provider Subscriber Effective: 2014 Policy Number: [id number] Medicare Blue Ppo Jessica Gordon PayID: [id number] [address] [address] [place] [address] Effective: 2008 Policy Number: [id number] Medicare Jessica Gordon Expires: 2014 PayID: [id number] [address] [place] [address] Effective: 2012 Policy Number: [id number] Of Y Jessica Gordon Expires: 2014 PayID: [id number] [address] [address] [place] [address] Effective: 2013 Policy Number: [id number] [facility] Jessica Gordon Onset: 2012 PayID: [id number] [address] [address] [place] [address] Advance Directives Description No Information Available Problems Date Description Provider Status Onset: 08/18/2012 Increased frequency of urination Tom Lau M.D. Active Onset: 08/18/2012 Crohn's disease Tom Lau M.D. Active Onset: 08/18/2012 Closed fracture of femur Tom Lau M.D. Active Onset: 08/18/2012 Restless legs Tom Lau M.D. Active Onset: 09/09/2012 Depressive disorder Tom Lau M.D. Active Onset: 01/23/2017 Dysthymic disorder Tom Lau M.D. Active Onset: 07/17/2017 Localized, primary osteoarthritis of Mona Ramires MD Active the pelvic region and thigh Onset: 12/04/2017 Localized, primary osteoarthritis Halima Turner M.D. 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 its packets in Judi, liquid as M.D. directed and take by mouth daily Ranitidine HCL 12/21 Active Tablets 150mg 180ta take 1 Tom E. bs tablet by Judi, mouth twice M.D. a day Diphenoxylate-At 11/26 Active Tablets 2.5-0.025 180ta take 2 Tom E. ropine /2017 mg bs tablets by Judi, mouth 3 M.D. times daily Temazepam 08/08 Active Capsules 15mg 30cap take one by Halima s mouth one Johnny, hour behore M.D. bed as needed for sleep. BD TB Syringe 06/09 Active 15uni For Use Tom E. 27GX1/2" ts With B-12 Judi, Injections M.D. BD 1ML 08/08 Active Misc 27G X 15uni to be used Tom Roa Tuberculin /20132" 1 ML ts with vit b Judi, Syringe/Safetygl 12 M.D. lady TB Needle injections 27GX1/2" Cyanocobalamin 08/08 Active Solution 1000mcg/M 25uni Inject 1ML Tom E. /2013 L ts Intramuscul laurie Lau Every M.D. Month Multivitamin Active Tablets 1 by mouth Unknown Adult /0000 every day Iron Active 25mg 1 tab daily Unknown /0000 Escitalopram Active Tablets 5mg 1/2 by Unknown mouth every day Tamsulosin HCL Active Capsules 0.4mg 1 by mouth Unknown every day Aspir-Low Active Tablets DR 81mg 1 by mouth Unknown every day Diphenoxylate-At 11/19 Hx Tablets 180ta take 2 TomSauer bs tablets 3 Judi, - times a M.D. 11/26 day. max. daily dose: 6 tabs. Coumadin 08/08 Hx Tablets 2mg 90tab take 1-3 Halima s tabs by Johnny, - mouth at 5 M.D. 08/08 at night directed Oxycodone-Acetam 08/08 Hx Tablets 5-325mg 90tab 1-2 tabs by Halima inophen s mouth every Johnny, - 6 hours as M.D. 12/31 needed for pain Cyclobenzaprine 08/08 Hx Tablets 10mg 60tab take 1 tab Halima HCL s by mouth Johnny, - 2-3 times a M.D. 12/31 day needed for spasms Aspirin 08/08 Hx Tablets 325mg 60tab take 1 by Halima s mouth twice Johnny, - a day for M.D. 11/16 four weeks Questran 01/28 Hx Packet 4gm 180un Take 2 Tom E. its Packets By Judi, - Mouth Daily M.D. 04/30 as Directed Sulfamethoxazole 01/09 Hx Tablets 800-160mg 20tab 1 by mouth R30.0 Tom Ho. /Trimethoprim s twice a day Judi, - M.D. 01/22 Cholestyramine 10/21 Hx Packet 4gm 180un take 2 Tom Roa Light its packets by Judi, - mouth daily M.D. 01/09 as directed Diphenoxylate-At 09/11 Hx Tablets 2.5-0.025 180ta take 1-2 TomSauer mg bs tablets by Judi, - mouth 3 M.D. 05/11 times daily as needed for diarrhea Xanax 10/05 Hx Tablets 1mg 20tab 1/2 tab to F41.9 Tom Roa s 1 tab po up Judi, - to 3 times M.D. 07/16 a Bupropion HCL ER 05/02 Hx Tablets ER 300mg 90tab 1 by mouth F41.9 Tom Roa (XL) 24HR s every day Carl Lau M.D. 07/16 Bupropion HCL ER 03/31 Hx Tablets ER 150mg 30tab 1 by mouth 311 Nory Tijerina (XL) 24HR s every day Carl Joyce M.D.,FACP 05/02 Questran Light 10/05 Hx Packet 4gm 3mont 2 by mouth Tom Roa h every day Carl Lau M.D. 10/05 Questran Light 10/05 Hx Packet 4gm 3Mont 2 by mouth K50.90 Tom Roa h everyday Carl Lau M.D. 12/17 Requip 10/14 Hx Tablets 3mg 60tab 1 qd s Lavinia, - N.P. 09/01 Mirapex 10/12 Hx Tablets 0.125mg 30tab 1 po 2-3 Tom Roa s hrs before Judi, - bedtime M.DMiriam 09/01 Ropinirole HCL 10/05 Hx Tablets 0.25mg 30tab 1 tab by Tom Roa s mouth every Judi, - night M.D. 10/12 B12 Im 09/09 Hx 1 Q Month Tom Roa Carl Lau M.D. 08/08 Requip 09/09 Hx Tablets 0.25mg 60tab 1 po qd in 333.94 Tom Roa s the morning Carl Lau M.D. 10/12 Lomotil 08/26 Hx Tablets 2.5-0.025 180ta take 1-2 Tom Roa mg bs tablets by Judi, - mouth 3 M.D. 09/11 times a day as needed for diarrhea *max 6/day* Calcium 600 + D Hx Tablets 600-400mg 2 po qd Unknown /0000 -Unit - 09/04 Aspirin Ec 00/ Hx Tablets DR 325mg 90tab 1 po qd Unknown /0000 s - 11/16 Diphen / Hx Tablets 25mg 2 po in the Unknown /0000 am and 1 po - hs 08/18 Questran Hx Packet 4gm 180un 2 po qd Tom Roa / Carl Page M.D. 10/05 Citalopram Hx Tablets 40mg 60tab 1 po qd Tom Roa Hydrobromide / Carl Poole M.D. 09/01 Requip Hx Tablets 3mg Unknown /0000 - 10/12 Folic Acid Hx Capsules 5mg 14cap 1 po qd Unknown / s - 09/04 Naproxen Hx Tablets 30tab 1 by mouth Unknown /0000 s twice a day - as needed 09/15 [address]TC Hx Tablets [address] 20mg 1 by mouth Unknown /0000 every day - 08/08 Cholestyramine Hx Packet 4gm Unknown Light / - 02/12 Colestipol HCL Hx Tablets 1gm 60tab 2 by mouth Unknown /0000 s every day - 07/16 Ranitidine HCL Hx Capsules 300mg 30cap 1 cap by Tom E. / s mouth grisel Lau - emile Thornton 12/21 Lexapro Hx Tablets 5mg 1 by mouth Unknown /0000 every day - 12/17 Azithromycin Hx Tablets 250mg Unknown /0000 - 12/17 Prednisone 0000 Hx Tablets 20mg Unknown /0000 - 12/17 Ventolin HFA Hx Aerosol 108(90Bas Unknown /0000 e) - mcg/Act 12/17 Flonase Allergy Hx Suspension 50mcg/Act spray 1 Unknown Relief / spray in - each 01/22 nostril /2016 twice daily Colestipol HCL 00 Hx Tablets 1gm twice daily Unknown /0000 - 01/09 Clonazepam Hx Tablets 0.5mg 1 tab daily Unknown /0000 - 01/09 Tramadol HCL Hx Tablets 50mg Jared, /0000 Carl Ly MD 05/20 Lomotil 00 Hx Tablets 2.5-0.025 120ta take one Carlie /0000 mg bs tablet Hillman, - every 6 M.D. 07/12 hours needed. max. daily dose: 4 tabs. Naproxen Hx Tablets 500mg 1 tablet Unknown /0000 with food - by mouth 05/20 twice a day Medications Administered in Office Medication Date Status Form Strength Qnty SIG Indications Ordering Provider Depomedrol Administered Injection Halima 40MG 019 Norberto Turner Depomedrol Administered Injection Halima 40MG 018 Norberto Turner Immunizations CPT Code Status Date Vaccine Lot # [id number] Given 06/03/2018 Pneumonia Vaccine [id number] 86974 Given 01/27/2018 Fluzone High Dose 63096 Given 12/09/2017 Zoster (Shingles) Vaccine (HZV), Recombinant, Subunit, Adjuvanted 26715 Given 09/11/2017 Zoster (Zostavax) 29121 Given 03/26/2016 Fluzone High Dose 49951 Given 02/12/2015 Influenza Virus Vaccine, Quadrivalent, Split, [id number] Preservative Free 98600 Given 09/04/2014 Tdap - Tetanus/Diptheria/Acellular Pertussis [id number] 07536 Given 09/04/2014 Pneumococcal Conjugate Vaccine 13 Valent For [id number] Intramuscular Use 95701 Given 03/08/2013 Flu Vaccine Split Virus Preservative Free For [id number] Indiv 3Yr Older 99292 Given 05/11/2011 Zoster (Zostavax) 13625 Ordered 01/08/2017 Influenza Virus Vaccine, Quadrivalent, Split, Preservative Free Vital Signs Date Vital Result Comment 06/03/2018 10:26am Height 67.5 inches 5'7.50" Weight 200.00 lb Heart Rate 77 /min BP Systolic Sitting 120 mmHg BP Diastolic Sitting 72 mmHg O2 % BldC Oximetry 97 % BMI (Body Mass Index) 30.9 kg/m2 05/21/2018 9:02am Height 67.5 inches 5'7.50" Weight 197.00 lb BP Systolic 122 mmHg BP Diastolic 71 mmHg Respiratory Rate 16 /min Pain Level 3 BMI (Body Mass Index) 30.4 kg/m2 01/01/2018 10:33am Height 67.5 inches 5'7.50" Weight 195.00 lb BP Systolic 116 mmHg BP Diastolic 74 mmHg Body Temperature 97.7 F BMI (Body Mass Index) 30.1 kg/m2 12/04/2017 2:03pm Height 67.5 inches 5'7.50" Weight 195.00 lb Heart Rate 84 /min BP Systolic 106 mmHg BP Diastolic 64 mmHg BMI (Body Mass Index) 30.1 kg/m2 11/19/2017 2:56pm Height 67 inches 5'7" Weight 202.06 lb Heart Rate 72 /min BP Systolic Sitting 120 mmHg BP Diastolic Sitting 78 mmHg O2 % BldC Oximetry 98 % BMI (Body Mass Index) 31.6 kg/m2 11/17/2017 4:15pm Height 67 inches 5'7" Weight 200.00 lb Heart Rate 90 /min BP Systolic 116 mmHg BP Diastolic 70 mmHg O2 % BldC Oximetry 97 % BMI (Body Mass Index) 31.3 kg/m2 10/07/2017 10:52am Height 67 inches 5'7" Weight 200.00 lb Heart Rate 68 /min BP Systolic Sitting 120 mmHg BP Diastolic Sitting 74 mmHg Respiratory Rate 16 /min Pain Level 0 BMI (Body Mass Index) 31.3 kg/m2 09/07/2017 11:14am Height 67 inches 5'7" Heart Rate 85 /min BP Systolic 114 mmHg BP Diastolic 80 mmHg Respiratory Rate 20 /min Body Temperature 97.8 F Pain Level 0 08/17/2017 11:19am Height 67 inches 5'7" Weight 200.00 lb BP Systolic 130 mmHg BP Diastolic 64 mmHg Body Temperature 98.0 F BMI (Body Mass Index) 31.3 kg/m2 07/28/2017 2:06pm Weight 204.50 lb Heart Rate 71 /min BP Systolic Sitting 122 mmHg BP Diastolic Sitting 80 mmHg Body Temperature 97.2 F O2 % BldC Oximetry 98 % 07/22/2017 10:15am Height 66.5 inches 5'6.50" Weight 197.00 lb BP Systolic 124 mmHg BP Diastolic 81 mmHg Respiratory Rate 16 /min Pain Level 2 BMI (Body Mass Index) 31.3 kg/m2 07/17/2017 10:32am Height 66.5 inches 5'6.50" Weight 197.00 lb per pt Heart Rate 76 /min reg BP Systolic Sitting 120 mmHg Lue BP Diastolic Sitting 80 mmHg Lue Respiratory Rate 16 /min Pain Level 8 Rle BMI (Body Mass Index) 31.3 kg/m2 01/23/2017 10:20am Height 66.5 inches 5'6.50" Weight 197.50 lb Heart Rate 71 /min BP Systolic Sitting 130 mmHg BP Diastolic Sitting 74 mmHg Body Temperature 96.8 F O2 % BldC Oximetry 98 % BMI (Body Mass Index) 31.4 kg/m2 01/09/2017 11:02am Height 66.5 inches 5'6.50" Weight 165.00 lb Heart Rate 77 /min BP Systolic Sitting 136 mmHg BP Diastolic Sitting 68 mmHg Body Temperature 98.7 F O2 % BldC Oximetry 98 % BMI (Body Mass Index) 26.2 kg/m2 12/18/2015 11:18am Height 66.5 inches 5'6.50" Weight 216.00 lb Heart Rate 74 /min BP Systolic Sitting 112 mmHg BP Diastolic Sitting 62 mmHg Body Temperature 97.4 F O2 % BldC Oximetry 97 % BMI (Body Mass Index) 34.3 kg/m2 08/09/2015 4:46pm Height 66.5 inches 5'6.50" Weight 215.00 lb Heart Rate 64 /min BP Systolic 108 mmHg BP Diastolic 64 mmHg Body Temperature 97.7 F O2 % BldC Oximetry 97 % BMI (Body Mass Index) 34.2 kg/m2 07/17/2015 1:01pm Height 66.5 inches 5'6.50" Weight 216.00 lb Heart Rate 75 /min BP Systolic 112 mmHg BP Diastolic 61 mmHg Body Temperature 97.9 F O2 % BldC Oximetry 97 % BMI (Body Mass Index) 34.3 kg/m2 02/12/2015 11:53am Height 66.5 inches 5'6.50" Weight 206.00 lb Heart Rate 72 /min BP Systolic Sitting 130 mmHg BP Diastolic Sitting 80 mmHg Respiratory Rate 13 /min Body Temperature 97.5 F O2 % BldC Oximetry 98 % BMI (Body Mass Index) 32.7 kg/m2 12/07/2014 11:18am Height 66.5 inches 5'6.50" Weight 206.50 lb Heart Rate 67 /min BP Systolic Sitting 134 mmHg BP Diastolic Sitting 80 mmHg Body Temperature 96.4 F O2 % BldC Oximetry 98 % BMI (Body Mass Index) 32.8 kg/m2 09/04/2014 11:19am Height 66.5 inches 5'6.50" Weight 211.00 lb Heart Rate 66 /min BP Systolic Sitting 128 mmHg BP Diastolic Sitting 78 mmHg Body Temperature 97.3 F O2 % BldC Oximetry 96 % BMI (Body Mass Index) 33.5 kg/m2 05/02/2014 8:53am Weight 211.00 lb Heart Rate 77 /min BP Systolic Sitting 122 mmHg BP Diastolic Sitting 77 mmHg Body Temperature 96.8 F O2 % BldC Oximetry 96 % 03/31/2014 8:59am Weight 211.25 lb Heart Rate 87 /min BP Systolic Sitting 108 mmHg BP Diastolic Sitting 66 mmHg Body Temperature 96.6 F O2 % BldC Oximetry 98 % 11/16/2013 2:08pm Height 66.5 inches 5'6.50" Weight 217.25 lb Heart Rate 92 /min BP Systolic Sitting 118 mmHg BP Diastolic Sitting 66 mmHg Body Temperature 97.9 F BMI (Body Mass Index) 34.5 kg/m2 09/01/2013 1:57pm Height 66.5 inches 5'6.50" Weight 207.50 lb Heart Rate 72 /min BP Systolic Sitting 132 mmHg BP Diastolic Sitting 88 mmHg Body Temperature 97.5 F BMI (Body Mass Index) 33.0 kg/m2 03/08/2013 1:16pm Weight 212.50 lb Heart Rate 76 /min BP Systolic Sitting 140 mmHg BP Diastolic Sitting 72 mmHg 09/09/2012 1:06pm Weight 203.00 lb Heart Rate 82 /min BP Systolic Sitting 102 mmHg BP Diastolic Sitting 70 mmHg 08/18/2012 3:10pm Height 67.5 inches 5'7.50" Weight 206.00 lb Heart Rate 96 /min BP Systolic Sitting 126 mmHg BP Diastolic Sitting 70 mmHg BMI (Body Mass Index) 31.8 kg/m2 Results Test Date Facility Test Result H/L Range Note Laboratory test 04/06/2018 [facility] PSA Screening 0.678 ng/mL N 0-4.[address] [place] [address] [phone] Laboratory test 10/02/2017 [facility] PSA Screening 0.626 ng/mL N 0-4.[address] [place] [address] [phone] Urinalysis Profile 07/27/2017 [facility] Urine Color Yellow [address] [place] [address] [phone] Urine Appearance Clear Urine Specific [place] 1.023 N 1.010-1.030 Urine pH 5.0 N 5-9 Urine Urobilinogen Negative Negative Urine Ketones Negative Negative Urine Protein Negative Negative Urine Leukocytes Negative Negative Urine Blood Negative Negative Urine Nitrite Negative Negative Urine Bilirubin Negative Negative Urine Glucose Negative Negative CBC Auto Diff 07/27/2017 [facility] White Blood 5.7 10^3/uL N 3.5-10.[address] [place] [address] [phone] Red Blood Count 4.19 10^6/uL N 4.0-5.4 Hemoglobin 13.5 g/dL Low 14.0-18.0 Hematocrit 39 % Low 42-52 Mean Corpuscular Volume 94 fL N 80-94 Mean Corpuscular Hemoglobin 32 pg High 27-31 Mean Corpuscular HGB Conc 34 g/dL N 31-36 Red Cell Distribution Width 13 % N 10.5-15 Platelet Count 319 10^3/uL N 150-450 Mean Platelet Volume 7 um3 Low 7.4-10.4 Abs Neutrophils 3.3 10^3/uL N 1.5-7.7 Abs Lymphocytes 1.4 10^3/uL N 1.0-4.8 Abs Monocytes 0.9 10^3/uL High 0-0.8 Abs Eosinophils 0.1 10^3/uL N 0-0.6 Abs Basophils 0 10^3/uL N 0-0.2 Abs Nucleated RBC 0 10^3/uL Granulocyte % 57.4 % N 38-83 Lymphocyte % 24.7 % Low 25-47 Monocyte % 15.3 % High 0-7 Eosinophil % 2.3 % N 0-6 Basophil % 0.3 % N 0-2 Nucleated Red Blood Cells % 0 Inr/Protime 07/27/2017 [facility] Inr 0.82 N 0.77-1.[address] [place] [address] [phone] Laboratory test 07/27/2017 [facility] Partial 29.7 seconds N 26.0-36.[address] [place] [address] Time PTT [phone] Urine Culture And 07/27/2017 [facility] Urine SEE RESULT [address] [place] [address] [phone] Type & Screen 07/27/2017 [facility] Patient A Positive [address] [place] [place] [address] [phone] Antibody Screen NEGATIVE Comp Metabolic Panel 07/27/2017 [facility] Sodium 138 mmol/L N 133-[address] [place] [address] [phone] Potassium 4.1 mmol/L N 3.5-5.0 Chloride 105 mmol/L N 101-111 Co2 Carbon Dioxide 27 mmol/L N 22-32 Anion Gap 6 mmol/L N 2-11 Glucose 94 mg/dL N 70-100 Blood Urea Nitrogen 24 mg/dL N 6-24 Creatinine 0.94 mg/dL N 0.67-1.17 BUN/Creatinine Ratio 25.5 High 8-20 Calcium 9.5 mg/dL N 8.6-10.3 Total Protein 6.8 g/dL N 6.4-8.9 Albumin 4.2 g/dL N 3.2-5.2 Globulin 2.6 g/dL N 2-4 Albumin/Globulin Ratio 1.6 N 1-3 Total Bilirubin 0.60 mg/dL N 0.2-1.0 Alkaline Phosphatase 45 U/L N 34-104 Alt 17 U/L N 7-52 Ast 18 U/L N 13-39 Egfr Non- 78.7 >60 Egfr 101.2 >60 2 Laboratory test 02/13/2017 [facility] Hepatitis C Nonreactive N Nonreactive finding [address] [place] [address] [phone] Urine Culture 01/08/2017 [facility] Urine SEE RESULT [address] [place] [address] [phone] Urinalysis 01/08/2017 [facility] Urine Color Yellow N Profile [address] [place] [address] [phone] Urine Appearance Cloudy N Urine Specific [place] 1.023 N 1.010-1.030 Urine pH 5.0 N 5-9 Urine Urobilinogen Negative N Negative Urine Ketones Negative N Negative Urine Protein Negative N Negative Urine Leukocytes 3+ Abnormal Negative Urine Blood Negative N Negative * * Abnormal Negative 4 Urine Nitrite Negative N Negative Urine Bilirubin Negative N Negative Urine Glucose Negative N Negative Urine White Blood Cell 3+(>20/hpf) Abnormal Absent Urine Red Blood Cell 1+(3-5/hpf) Abnormal Absent Urine Bacteria 1+ Abnormal Absent Urine Sperm Present Abnormal Absent Laboratory test 01/08/2017 [facility] PSA Screening 2.805 N 0- 4.000 [address] ng/[place] [address] [phone] Laboratory test 11/22/2014 [facility] Ferritin 187.9 N 24-336 6, [address] ng/mL [place], [place] [address] [phone] Iron 63 g/dL N 50-212 Iron & Iron 11/22/2014 [facility] Unsaturated Iron 221 g/dL N Binding Capacity [address] [place] [address] [phone] Total Iron Binding Capacity 284 g/dL N 250-450 % Iron Saturation 22 % N 15-55 Laboratory test 11/22/2014 [facility] Glucose 105 mg/dL High 70-[address] [place] [address] [phone] Lipid Profile 11/22/2014 [facility] Triglycerides 110 mg/dL N 9 (Trig/Chol/HDL) [address] [place] [address] [phone] Cholesterol 121 mg/dL N 10 HDL Cholesterol 46.2 mg/dL N 11 LDL Cholesterol 53 mg/dL N 12 Iron & Iron Binding 09/09/2012 [facility] Iron 67 g/dL 45- 182 [address] [place] [address] [phone] Unsaturated Iron Binding 298 g/dL Total Iron Binding Capacity 365 g/dL 250-450 % Iron Saturation 18 % 15-55 Laboratory test 08/24/2012 [facility] Erythrocyte Sed 19 mm/Hr 0-[address] [place] [address] [phone] C Reactive Protein < 0.5 mg/dL Less than 0.5 Urinalysis W/Microscopic 08/24/2012 [facility] Urine Color Yellow [address] [place] [address] [phone] Urine Appearance Clear Urine Specific [place] 1.021 1.010-1.030 Urine Esterase Negative Negative Urine Nitrate Negative Negative Urine Urobilinogen Negative E.U./dL Negative Urine Protein Negative mg/dL Negative Urine pH 5.0 5-9 Urine Blood Negative Negative Urine Ketones Negative mg/dL Negative Urine Bilirubin Negative Negative Urine Glucose Negative mg/dL Negative Urine WBC 1+ (<3 /hpf) None Seen Urine RBC 1+ (<3 /hpf) None Seen Urine Mucus Present /lpf Absent 1 SEE RESULT BELOW Name: JESSICA GORDON Jeff : [address]: Halima Turner MD Acct: [id number] Unit: [id number] AGE: 71 Location: [facility] Re07/27/17 SEX: M Status: REG REF SPEC: [id number] NESS: 07/27/17 [facility] DR: Halima Turner MD REQ: [id number] RECD: 07/27/17 STATUS: MEL VALENCIA DR: Tom Lau III, MD _ SOURCE: URINE SPDESC: ORDERED: Urine Culture QUERIES: Urine Source: Clean Catch Procedure Result Reported Site Urine Culture Final 07/28/17- 1218 ML No Growth (<1,000 CFU/mL) * ML - Main Lab . END OF REPORT DEPARTMENT OF PATHOLOGY, [address] [place] [address] Kristopher Reveles M.D. Director [facility] # [id number] 2 Because ethnic data is not always readily available, this report includes an eGFR for both -Americans and non- Americans. The National Kidney Disease Education Program (NKDEP) does not endorse the use of the MDRD equation for patients that are not between the ages of 18 and 70, are , have extremes of body size, muscle mass, or nutritional status, or are non- or non-. According to the National Kidney Foundation, irrespective of diagnosis, the stage of the disease is based on the level of kidney function: Stage Description GFR(mL/min/1.73 m(2)) 1 Kidney damage with normal or decreased GFR 90 2 Kidney damage with mild decrease in GFR 60-89 3 Moderate decrease in GFR 30-59 4 Severe decrease in GFR 15-29 5 Kidney failure <15 (or dialysis) 3 SEE RESULT BELOW Name: JESSICA GORDON : [address]: Tom Lau III, MD Acct: [id number] Unit: [id number] AGE: 71 Location: [facility] Re01/08/17 SEX: M Status: REG REF SPEC: [id number] NESS: 01/08/[address]: Tom Lau III, MD REQ: [id number] RECD: 01/08/17 STATUS: COMP _ SOURCE: URINE SPDESC: ORDERED: Urine Culture Procedure Result Reported Site Urine Culture Final 01/10/17- 735 ML Organism 1 KLEBSIELLA OXYTOCA [place] Count >100,000 (Many) CFU/ML 1. KLEBSIELLA OXYTOCA [facility].I.C. RX --------- ------ Ampicillin >=32 R Cefazolin 8 S Cefepime <=1 S Ceftriaxone <=1 S Ciprofloxacin <=0.25 S Gentamicin <=1 S Levofloxacin <=0.12 S Meropenem <=0.25 S Nitrofurantoin <=16 S Tetracycline <=1 S Pipercillin/Tazobactam <=4 S Trimethoprim/Sulfamethoxazole <=20 S Amoxicillin/Clavulanic Acid <=2 S Aztreonam <=1 S Contact the Microbiology Department for any additional antibiotic reporting. * ML - MAIN LAB ([facility]) . END OF REPORT * ML=Testing performed at Main Lab DEPARTMENT OF PATHOLOGY, [address] [place] [address] Kristopher Reveles M.D. Director [facility] # [id number] 4 *Ascorbic acid is present which may interfere with detection of blood. 5 Serum levels of PSA measured using the Yosef Judd DXI Hybritech immunoassay should not be interpreted as absolute evidence of the presence or absence of disease. The PSA value should be used in conjunction with other pertinent clinical diagnostic procedures. The values obtained with different assay methods or kits cannot be used interchangeably. 6 PT IS FASTING 7 PT IS FASTING 8 PT IS FASTING 9 Desirable <150 Borderline high 150-199 High 200-499 Very High >500 10 Desirable <200 Borderline high 200-239 High >239 11 Low <40 Desirable: 40-60 High: >60 12 Desirable: <100 mg/dL Near Optimal: 100-129 mg/dL Borderline High: 130-159 mg/dL High: 160-189 mg/dL Very High: >189 mg/dL Procedures Date Code Description Status 05/21/2018 09259 Inject/Drain Joint/Bursa Major W/O US Completed 12/04/2017 78167 Inject/Drain Joint/Bursa Major W/O US Completed 08/05/2017 03958 THR Total Hip Replacement Completed 08/05/2017 58855 THR Total Hip Replacement Completed 06/05/2016 [id number] Colonoscopy Completed Encounters Type Date Location Provider Dx Diagnosis Office Visit 05/21/2018 Orthopedic Halima Turner, M25.562 Pain in left knee 8:45a Services Of [facility] M.[facility]. 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 M.D. hip Z96.641 Presence of right artificial hip joint Z47.1 Aftercare following joint replacement surgery M25.462 Effusion, left knee M25.562 Pain in left knee Office Visit 12/04/2017 1:45p Orthopedic Services Halima Turner, M25.562 Pain in left Of [facility] M.D. knee M25.462 Effusion, left knee M17.12 Unilateral primary osteoarthritis, left knee Office Visit 11/19/2017 Santi Roa K50.90 Crohn's disease, 3:00p Gustavo Lau M.D. unspecified, [place] without complications Office Visit 08/07/2017 [facility] Bonnie Strickland, R55 Syncope and 9:15a [facility]oc[facility] collapse Hospitalists K50.90 Crohn's disease, unspecified, without complications K21.9 Gastro-esophageal reflux disease without esophagitis Z96.641 Presence of right artificial hip joint Office Visit 07/28/2017 Santi Roa Z01.810 Encounter for 2:20p Gustavo Lau M.D. preprocedural [place] cardiovascular examination M16.11 Unilateral primary osteoarthritis, right hip K50.90 Crohn's disease, unspecified, without complications G25.81 Restless legs syndrome F34.1 Dysthymic disorder N40.0 Benign prostatic hyperplasia without lower urinry tract symp Office Visit 07/22/2017 Orthopedic Halima M16.11 Unilateral primary 10:15a Services Of Norberto Turner osteoarthritis, right C.M.A. hip M25.551 Pain in right hip Office Visit 07/17/2017 Orthopedic Mona Ramires, M16.11 Unilateral primary 10:30a Services Of osteoarthritis, right C.M.A. hip Office Visit 01/09/2017 [facility] [place] Ro[place] R30.0 Dysuria 11:00a Gustavo Lau M.D. [place] Office Visit 08/09/2015 [facility] Ro[facility] J20.9 Acute bronchitis, 4:20p Gustavo Lau M.D. unspecified [place] Office Visit 07/17/2015 [facility] Roa K50.90 Crohn's disease, 1:00p Gustavo Lau M.D. unspecified, without [place] complications Office Visit 02/12/2015 [facility] Ro[facility] F41.8 Other specified 11:40a Gustavo Lau M.D. anxiety disorders [place] Z23 Encounter for immunization Office Visit 09/04/2014 11:00a Pediatric Physician [place] V72.83 Examination Gustavo Lau M.D. Preoperative Other [place] Spec 366.10 Cataract Senile Unspec v06.1 Soprlqiqua-Wypszfn-Iojrzdsc Combined (DTaP) v03.82 Streptococcus Pneumoniae Vaccination Spec Other 555.9 Enteritis Unspec Site 333.94 Restless Leg Syndrome 311 Depressive Disorder Not Elsewhere Spec Office Visit 05/02/2014 9:00a [facility] Ro[facility] 311 Depressive Gustavo Lau M.D. Disorder Not [place] Elsewhere Spec Office Visit 03/31/2014 9:00a Santi Roa 536.8 Stomach Dyspepsia Gustavo Lau M.D. & Other Spec [place] Disorders Of Function 311 Depressive Disorder Not Elsewhere Spec Office Visit 11/16/2013 2:00p [facility]anti Roa 719.47 Pain Joint Ankle & Gustavo Lau M.D. Foot [place] Office Visit 09/01/2013 2:00p [facility] Ro[facility] V72.84 Examination Gustavo Lau M.D. Preoperative [place] Unspec 719.45 Pain Joint Pelvic Region & Thigh 555.9 Enteritis Unspec Site 333.94 Restless Leg Syndrome 311 Depressive Disorder Not Elsewhere Spec Office Visit 03/08/2013 1:20p [facility] Internal Tom Roa 311 Depressive Gustavo Lau M.D. Disorder Not [place] Elsewhere Spec 333.94 Restless Leg Syndrome v04.81 Need For Prophylactic Vaccination & Inoculation/Influenza Office Visit 09/09/2012 1:00p [facility] [place] 333.94 Restless Leg Gustavo Lau M.D. Syndrome [place] 311 Depressive Disorder Not Elsewhere Spec 821.00 FX Femur Closed Unspec Part 555.9 Enteritis Unspec Site Office Visit 08/18/2012 3:00p [facility] Internal Tom Roa 788.41 Urinary Gustavo Lau M.D. Frequency [place] 555.9 Enteritis Unspec Site 821.00 FX Femur Closed Unspec Part 333.94 Restless Leg Syndrome Plan of Treatment Future Appointment(s):06/17/2018 3:30 pm - Halima Turner M.D. at [facility].A06/07/2018 8:15 am - Halima Turner M.D. at [facility]07/20/2018 9:20 am - Tom Lau M.D. at [facility] Internal Medicine [facility]06/03/2018 - Tom Lau M.D.Z01.810 Encounter for preprocedural cardiovascular examinationNew Labs:Basic Metabolic Panel, Ordered : 06/03/18CBC Auto Diff, Ordered: 06/03/18Urinalysis Profile, Ordered: New Orders:EKG, Ordered: 06/03/18Comments:No contraindications to planned knee surgery. Pre-op labs ordered.M17.31 Unilateral post-traumatic osteoarthritis, right kneeComments:R TKA planned per ibbfgU36.90 Crohn's disease , unspecified, without complicationsComments:Stable on bowel RxK21.9 Gastro- esophageal reflux disease without esophagitisComments:Stable with Ranitidine RxG25.81 Restless legs syndromeComments:Stable on iron RxF34.1 Dysthymic disorderComments:Follows with psych; no mood changes/problems on RxN40.0 Benign prostatic hyperplasia without lower urinary tract symComments:No voiding problems; follows with gxliydiF72.220 Encounter for screening for lipoid disordersNew Labs:Lipid Profile (Trig/Chol/HDL), Ordered: 06/03/18Comments:LDL good in 2015; recheck gmdejbO51 Encounter for immunizationComments:Pt unsure about a past Pneumovax, so vaccine given. Other shots all up to date
--- OUTSIDE RECORDS SUMMARY | 2018-06-17 09:16 | XMS REPORT | Continuity of Care Document ---
:1945 External Reference #:[id number] Author Name Phoebe Lopez Care Team Providers Name Role Phone Tom Lau III, MD Primary Care Physician Unavailable Payers Type Date Identification Numbers Payment Provider Subscriber Effective: 2014 Policy Number: [id number] Medicare Blue Ppo Jessica Gordon PayID: [id number] [address] [address] [place] [address] Effective: 2008 Policy Number: [id number] Medicare Jessica Gordon Expires: 2014 PayID: [id number] [address] [place] [address] Effective: 2012 Policy Number: [id number] Of [facility] Jessica Gordon Expires: 2014 PayID: [id number] [address] [address] [place] [address] Effective: 2013 Policy Number: [id number] [facility] Jessica Gordon Onset: 2012 PayID: [id number] [address] [address] [place] [address] Advance Directives Description No Information Available Problems [...] Comments Sex Unknown Marital Status 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 27GX1/2" ts With B-12 Judi, Injections M.DMiriam BD 1ML 08/08 Active Misc 27G X 15uni to be used Tom Roa Tuberculin /20132" 1 ML ts with vit b Judi Syringe/Safetygl 12 M.D. lady TB Needle injections 27GX1/2" Cyanocobalamin 08/08 Active Solution 1000mcg/M 25uni Inject 1ML Tom EMiriam /2013 L ts Intramuscul laurie Lau Every M.D. Month Multivitamin Active Tablets 1 by mouth Unknown Adult /0000 every day Iron 0000 Active 25mg 1 tab daily Unknown /0000 Escitalopram 00/00 Active Tablets 5mg 1/2 by Unknown Oxalate mouth every day Tamsulosin HCL Active Capsules 0.4mg 1 by mouth Unknown every day Diphenoxylate-At 11/19 Hx Tablets 180ta take 2 TomReyesine bs tablets 3 Judi, - times a M.D. 11/26 day. . daily dose: 6 tabs. Coumadin 08/08 Hx Tablets 2mg 90tab take 1-3 Halima s tabs by Johnny, - mouth at 5 M.D. 08/08 at night as directed Oxycodone-Acetam 08/08 Hx Tablets 5-325mg 90tab [...] 800-160mg 20tab 1 by mouth R30.0 Tom Roa /Trimethoprim s twice a day Judi, - M.D. 01/22 Cholestyramine 10/21 Hx Packet 4gm 180un take 2 Tom EMiriam its packets by Judi, - mouth daily M.D. 01/09 as directed Diphenoxylate-At 09/11 Hx Tablets 2.5-0.025 180ta take 1-2 Tom ball mg bs tablets by Judi, - mouth 3 M.D. 05/11 times daily as needed for diarrhea Xanax 02/12 Hx Tablets 1mg 20tab 1/2 tab to F41.9 Tom Roa s 1 tab po up Judi, - to 3 times M.D. 07/16 a day /2015 Bupropion HCL ER 05/02 Hx Tablets ER [...] Hx Tablets 3mg 60tab 1 qd s Lavinia - N.PMiriam 09/01 Mirapex 10/12 Hx Tablets 0.125mg 30tab [...] diarrhea *max 6/day* Calcium 600 + D 00 Hx Tablets 600-400mg 2 po qd Unknown /0000 -Unit - 09/[address] Hx Table[address] 325mg 90tab 1 po qd Unknown /0000 s - 11/16 Diphen / Hx Tablets 25mg 2 po in the Unknown /0000 am and 1 po - hs 08/18 Questran Hx Packet 4gm 180un 2 po qd Tom EMiriam / its Carl Lau M.D. 10/05 Citalopram Hx Tablets 40mg 60tab 1 po qd Tom Roa Hydrobromide Carl Poole M.D. 09/01 Requip Hx Tablets 3mg Unknown / - 10/12 Folic Acid Hx Capsules 5mg 14cap 1 po qd Unknown / s - 09/04 Naproxen Hx Tablets 30tab 1 by mouth Unknown / s twice a day - as needed [...] Hx Suspension 50mcg/Act spray 1 Unknown Relief /0000 spray in - each 01/22 nostr /2016 twice daily Colestipol HCL 00 Hx Tablets 1gm twice daily Unknown /0000 - 01/09 Clonazepam Hx Tablets 0.5mg 1 tab daily Unknown /0000 - 01/09 Tramadol HCL Hx Tablets 50mg Jared, /0000 Carl Ly MD 05/20 Lomotil Hx Tablets 2.5-0.025 120ta take one Carlie /0000 mg bs tablet Hillman, - every 6 M.D. 07/12 hours needed. max. daily dose: 4 tabs. Aspir-Low Hx Tablets DR 81mg 1 by mouth Unknown /0000 every day - 06/06 Naproxen Hx Tablets 500mg 1 tablet Unknown /0000 with food - by mouth 05/20 twice a day Medications Administered in Office Medication Date Status Form Strength Qnty SIG Indications Ordering Provider Depomedrol Administered Injection Halima 40MG 019 Norberto Turner Depomedrol Administered Injection Halima 40MG 018 Norberto Turner Immunizations CPT Code Status Date Vaccine Lot # [id number] Given 06/03/2018 Pneumonia Vaccine [id number] 73218 Given 01/27/2018 Fluzone High Dose 35049 Given 12/09/2017 Zoster (Shingles) Vaccine (HZV), Recombinant, Subunit, Adjuvanted 40709 Given 09/11/2017 Zoster (Zostavax) 34671 Given 03/26/2016 Fluzone High Dose 63206 Given 02/12/2015 Influenza Virus Vaccine, Quadrivalent, Split, [id number] Preservative Free 41976 Given 09/04/2014 Tdap - Tetanus/Diptheria/Acellular Pertussis [id number] 07370 Given 09/04/2014 Pneumococcal Conjugate Vaccine 13 Valent For [id number] Intramuscular Use 91716 Given 03/08/2013 Flu Vaccine Split Virus Preservative Free For [id number] Indiv 3Yr Older 13598 Given 05/11/2011 Zoster (Zostavax) 16155 Ordered 01/08/2017 Influenza Virus Vaccine, Quadrivalent, Split, Preservative Free Vital Signs Date Vital Result Comment 06/07/2018 8:22am Height 67.5 inches 5'7.50" Weight 206.00 lb Heart Rate 84 /min BP Systolic 116 mmHg BP Diastolic 78 mmHg BMI (Body Mass Index) 31.8 kg/m2 06/03/2018 10:26am Height 67.5 inches 5'7.50" Weight [...] Date Facility Test Result H/L Range Note Basic Metabolic 06/04/2018 [facility] Sodium 138 mmol/L N 135- [address] [place] [address] [phone] Potassium 4.0 mmol/L N 3.5-5.0 Chloride 105 mmol/L N 101-111 Co2 Carbon Dioxide 27 mmol/L N 22-32 Anion Gap 6 mmol/L N 2-11 Glucose 106 mg/dL High 70-100 Blood Urea Nitrogen 23 mg/dL N 6-24 Creatinine 0.93 mg/dL N 0.67-1.17 BUN/Creatinine Ratio 24.7 High 8-20 Calcium 9.2 mg/dL N 8.6-10.3 Egfr Non- 79.4 >60 Egfr 96.1 >60 1 CBC Auto Diff 06/04/2018 [facility] White Blood 10.4 10^3/uL N 3.5-10.[address] [place] [address] [phone] Red Blood Count 4.33 10^6/uL N 4.00-5.40 Hemoglobin 13.4 g/dL Low 14.0-18.0 Hematocrit 40 % Low 42-52 Mean Corpuscular Volume 93 fL N 80-94 Mean Corpuscular Hemoglobin 31 pg N 27-31 Mean Corpuscular HGB Conc 33 g/dL N 31-36 Red Cell Distribution Width 13 % N 10.5-15 Platelet Count 329 10^3/uL N 150-450 Mean Platelet Volume 7.6 fL N 7.4-10.4 Abs Neutrophils 7.7 10^3/uL N 1.5-7.7 Abs Lymphocytes 1.7 10^3/uL N 1.0-4.8 Abs Monocytes 0.7 10^3/uL N 0-0.8 Abs Eosinophils 0.2 10^3/uL N 0-0.6 Abs Basophils 0 10^3/uL N 0-0.2 Abs Nucleated RBC 0 10^3/uL Granulocyte % 74.3 % Lymphocyte % 16.3 % Monocyte % 7.1 % Eosinophil % 2.1 % Basophil % 0.2 % Nucleated Red Blood Cells % 0 Urinalysis Profile 06/04/2018 [facility] Urine Color Yellow [address] [place] [address] [phone] Urine Appearance Cloudy Urine Specific Farrell 1.020 N 1.010-1.030 Urine pH 5.0 N 5-9 Urine Urobilinogen Negative Negative Urine Ketones Negative Negative Urine Protein Negative Negative Urine Leukocytes Negative Negative Urine Blood Negative Negative Urine Nitrite Negative Negative Urine Bilirubin Negative Negative Urine Glucose Negative Negative Lipid Profile 06/04/2018 [facility] Triglycerides 75 mg/dL 2 (Trig/Chol/HDL) [address] [place] [address] [phone] Cholesterol 128 mg/dL 3 HDL Cholesterol 59.1 mg/dL 4 LDL Cholesterol 54 mg/dL 5 Laboratory test 04/06/2018 [facility] PSA Screening 0.678 ng/mL N 0-4.0 finding [address] [place] [address] [phone] Laboratory test 10/02/2017 [facility] PSA Screening 0.626 ng/mL N 0-4.0 finding [address] [place] [address] [phone] Urinalysis 07/27/2017 [facility] Urine Color Yellow Profile [address] [place] [address] [phone] Urine Appearance Clear Urine Specific Farrell 1.023 N 1.010-1.030 Urine pH 5.0 N 5-9 Urine Urobilinogen Negative Negative Urine Ketones Negative Negative Urine Protein Negative Negative Urine Leukocytes Negative Negative Urine Blood Negative Negative Urine Nitrite Negative Negative Urine Bilirubin Negative Negative Urine Glucose Negative Negative CBC Auto Diff 07/27/2017 [facility] White Blood 5.7 10^3/uL N 3.5-10.8 [address] [place] [address] [phone] Red Blood Count 4.19 10^6/uL N 4.0-5.4 [...] Red Blood Cells % 0 Inr/Protime 07/27/2017 [facility] Inr 0.82 N 0.77-1.[address] [place] [address] [phone] Laboratory test 07/27/2017 [facility] Partial 29.7 seconds N 26.0-36.[address] [place] [address] Time PTT [phone] Urine Culture And 07/27/2017 [facility] Urine SEE RESULT [address] Culture BELOW [place], [place] [id number] [phone] Type & Screen 07/27/2017 [facility] Patient A Positive [address] Blood Type [place], [place] [address] [phone] Antibody Screen NEGATIVE Comp Metabolic Panel 07/27/2017 [facility] Sodium 138 mmol/L N 133-[address] [place], [place] [address] [phone] Potassium 4.1 mmol/L N 3.5-5.0 Chloride 105 [...] Egfr Non- 78.7 >60 Egfr 101.2 >60 7 Laboratory test 02/13/2017 [facility] Hepatitis C Nonreactive N Nonreactive finding [address] [place] [address] [phone] Urine Culture 01/08/2017 [facility] Urine SEE RESULT [address] [place] [address] [phone] Urinalysis 01/08/2017 [facility] Urine Color Yellow N Profile [address] [place] [address] [phone] Urine Appearance Cloudy N Urine Specific Farrell 1.023 N 1.010-1.030 Urine pH 5.0 N 5-9 Urine Urobilinogen Negative N Negative Urine Ketones Negative N Negative Urine Protein Negative N Negative Urine Leukocytes 3+ Abnormal Negative Urine Blood Negative N Negative * * Abnormal Negative 9 Urine Nitrite Negative N Negative Urine Bilirubin Negative N Negative Urine Glucose Negative N Negative Urine White Blood Cell 3+(>20/hpf) Abnormal Absent Urine Red Blood Cell 1+(3-5/hpf) Abnormal Absent Urine Bacteria 1+ Abnormal Absent Urine Sperm Present Abnormal Absent Laboratory test 01/08/2017 [facility] PSA Screening 2.805 N 0- 4.[address] ng/[place] [address] [phone] Lipid Profile 11/22/2014 [facility] Triglycerides 110 mg/dL N 11, 12 (Trig/Chol/HDL) [address] [place] [address] [phone] Cholesterol 121 mg/dL N 13 HDL Cholesterol 46.2 mg/dL N 14 LDL Cholesterol 53 mg/dL N 15 Laboratory test 11/22/2014 [facility] Glucose 105 mg/dL High 70-100 [address] [place] [address] [phone] Iron & Iron 11/22/2014 [facility] Unsaturated Iron [address] Binding g/[place] [address] [phone] Total Iron Binding Capacity 284 g/dL N 250-450 % Iron Saturation 22 % N 15-55 Laboratory test 11/22/2014 [facility] Ferritin 187.9 ng/mL N 24-336 [address] [place] [address] [phone] Iron 63 g/dL N 50-212 Iron & Iron Binding 09/09/2012 [facility] Iron 67 g/dL 45- [address] [place] [address] [phone] Unsaturated Iron Binding 298 g/dL Total Iron Binding Capacity 365 g/dL 250-450 % Iron Saturation 18 % 15-55 Laboratory test 08/24/2012 [facility] Erythrocyte Sed 19 mm/Hr 0-[address] [place] [address] [phone] C Reactive Protein < 0.5 mg/dL Less than 0.5 Urinalysis W/Microscopic 08/24/2012 [facility] Urine Color Yellow [address] [place] [address] [phone] Urine Appearance Clear Urine Specific Farrell 1.021 1.010-1.030 Urine Esterase Negative Negative Urine Nitrate Negative Negative Urine Urobilinogen Negative E.U./dL Negative Urine Protein Negative mg/dL Negative Urine pH 5.0 5-9 Urine Blood Negative Negative Urine Ketones Negative mg/dL Negative Urine Bilirubin Negative Negative Urine Glucose Negative mg/dL Negative Urine WBC 1+ (<3 /hpf) None Seen Urine RBC 1+ (<3 /hpf) None Seen Urine Mucus Present /lpf Absent 1 Because ethnic data is not always readily [...] 15-29 5 Kidney failure <15 (or dialysis) 2 Desirable: <150 Borderline High: 150-199 High: 200-499 Very High: >500 3 Desirable: <200 Borderline High: 200-239 High: >239 4 Low: <40 Desirable: 40-60 High: >60 5 Desirable: <100 Near Optimal: 100-129 Borderline High: 130-159 High: 160-189 Very High: >189 6 SEE RESULT BELOW Name: JESSICA GORDON Jeff : [address]: Halima Turner MD Acct: [id number] Unit: [id number] AGE: 71 Location: [facility] Re07/27/17 SEX: M Status: REG REF SPEC: [id number] NESS: 07/27/170 [facility] DR: Halima Turner MD REQ: [id number] RECD: 07/27/17 STATUS: MEL VALENCIA DR: Tom Lau III, MD _ SOURCE: URINE SPDESC: ORDERED: Urine Culture QUERIES: Urine Source: Clean Catch Procedure Result Reported Site Urine Culture Final 07/28/17- 1218 ML No Growth (<1,000 CFU/mL) * ML - Main Lab . END OF REPORT DEPARTMENT OF PATHOLOGY, [address] [place] [address] Kristopher Reveles M.D. Director [facility] # [id number] 7 Because ethnic data is not always readily [...] 15-29 5 Kidney failure <15 (or dialysis) 8 SEE RESULT BELOW Name: JESSICA GORDON : [address]: Tom Lau III, MD Acct: [id number] Unit: [id number] AGE: 71 Location: [facility] Re01/08/17 SEX: M Status: REG REF SPEC: [id number] NESS: 01/08/17 [facility] DR: Tom Lau III, MD REQ: [id number] RECD: 01/08/17 STATUS: COMP _ SOURCE: URINE SPDESC: ORDERED: Urine Culture Procedure Result Reported Site Urine Culture Final 01/10/17- 07 ML Organism 1 KLEBSIELLA OXYTOCA [place] Count >100,000 (Many) CFU/ML 1. KLEBSIELLA OXYTOCA [...] antibiotic reporting. * ML - MAIN LAB ([facility]) . END OF REPORT * ML=Testing performed at Main Lab DEPARTMENT OF PATHOLOGY, [address] [place] [address] Kristopher Reveles M.D. Director [facility] # [id number] 9 *Ascorbic acid is present which may interfere with detection of blood. 10 Serum levels of PSA measured using the Yosef Judd DXI Hybritech immunoassay should not be interpreted as absolute evidence of the presence or absence of disease. The PSA value should be used in conjunction with other pertinent clinical diagnostic procedures. The values obtained with different assay methods or kits cannot be used interchangeably. 11 PT IS FASTING 12 Desirable <150 Borderline high 150-199 High 200-499 Very High >500 13 Desirable <200 Borderline high 200-239 High >239 14 Low <40 Desirable: 40-60 High: >60 15 Desirable: <100 mg/dL Near Optimal: 100-129 mg/dL Borderline High: 130-159 mg/dL High: 160-189 mg/dL Very High: >189 mg/dL 16 PT IS FASTING 17 PT IS FASTING Procedures Date Code Description Status 06/03/2018 71027 EKG Tracing & Interpretation Completed 05/21/201894662 Inject/Drain Joint/Bursa Major W/O US Completed 12/04/2017 Inject/Drain Joint/Bursa Major W/O US Completed 08/05/2017 84139 THR Total Hip Replacement Completed 08/05/2017 57446 THR Total Hip Replacement Completed 06/05/2016 81734618 Colonoscopy Completed Encounters Type Date Location Provider Dx Diagnosis Office Visit 05/21/2018 Orthopedic Halima Turner, M25.562 Pain in left knee 8:45a Services Of [facility] M.D. M25.561 Pain in right knee M25.462 Effusion, left knee M25.461 Effusion, right knee M17.12 Unilateral primary osteoarthritis, left knee M17.31 Unilateral post-traumatic osteoarthritis, right knee Office Visit 01/01/2018 10:30a Orthopedic Services Halima Turner, M25.551 Pain in right Of [facility] M.D. hip Z96.641 Presence of right artificial hip joint Z47.1 Aftercare following joint replacement surgery M25.462 Effusion, left knee M25.562 Pain in left knee Office Visit 12/04/2017 1:45p Orthopedic Services Halima Turner, M25.562 Pain in left Of [facility]. M.D. knee M25.462 Effusion, left knee M17.12 Unilateral primary osteoarthritis, left knee Office Visit 11/19/2017 [facility] Vero Roa K50.90 Crohn's disease, 3:00p Gustavo Lau M.D. unspecified, [place] without complications [facility] R55 [facility] and 9:15a Assoc,pc N.P. collapse Hospitalists K50.90 Crohn's disease, unspecified, without complications K21.9 Gastro-esophageal reflux disease without esophagitis Z96.641 Presence of right artificial hip joint Office Visit 07/28/2017 [facility] Vero Roa Z01.810 Encounter for 2:20p Gustavo Lau M.D. preprocedural [place] cardiovascular examination M16.11 Unilateral primary osteoarthritis, right hip K50.90 Crohn's disease, unspecified, without complications G25.81 Restless legs syndrome F34.1 Dysthymic disorder N40.0 Benign prostatic hyperplasia without lower urinry tract symp Office Visit 07/22/2017 Grace Varghese M16.11 Unilateral primary 10:15a Services Javier Turner M.D. osteoarthritis, right C.[facility]. hip M25.551 Pain in right hip Office Visit 07/17/2017 Orthopedic Deepikamary anne Keyla, M16.11 Unilateral primary 10:30a Services Of osteoarthritis, right C.M.A. hip Office Visit 01/09/2017 [facility] Internal Tom Roa R30.0 Dysuria 11:00a Gustavo Lau M.D. [place] Office Visit 08/09/2015 [facility] Internal Tom Roa J20.9 Acute bronchitis, 4:20p Gustavo Lau M.D. unspecified [place] Office Visit 07/17/2015 [facility] Internal Tom Roa K50.90 Crohn's disease, 1:00p Gustavo Lau M.D. unspecified, without [place] complications Office Visit 02/12/2015 [facility] Vero Roa F41.8 Other specified 11:40a Gustavo Lau M.D. anxiety disorders [place] Z23 Encounter for immunization Office Visit 09/04/2014 11:00a [facility]anti Roa V72.83 Examination Gustavo Lau M.D. Preoperative Other [place] Spec 366.10 Cataract Senile Unspec v06.1 Bbngbannsd-Dzkxcnk-Ypijkrsh Combined (DTaP) v03.82 Streptococcus Pneumoniae Vaccination Spec Other 555.9 Enteritis Unspec Site 333.94 Restless Leg Syndrome 311 Depressive Disorder Not Elsewhere Spec Office Visit 05/02/2014 9:00a [facility] Ro[facility] 311 Depressive Gustavo Lau M.D. Disorder Not [place] Elsewhere Spec Office Visit 03/31/2014 9:00a [facility]anti Roa 536.8 Stomach Dyspepsia Gustavo Lau M.D. & Other Spec [place] Disorders Of Function 311 Depressive Disorder Not Elsewhere Spec Office Visit 11/16/2013 2:00p [facility] Ro[facility] 719.47 Pain Joint Ankle & Gustavo Lau M.D. Foot [place] Office Visit 09/01/2013 2:00p [facility] Internal Tom Roa V72.84 Examination Gustavo Lau M.D. Preoperative [place] Unspec 719.45 Pain Joint Pelvic Region & Thigh 555.9 Enteritis Unspec Site 333.94 Restless Leg Syndrome 311 Depressive Disorder Not Elsewhere Spec Office Visit 03/08/2013 1:20p [facility] Internal Tom Roa 311 Depressive Gustavo Lau M.D. Disorder Not [place] Elsewhere Spec 333.94 Restless Leg Syndrome v04.81 Need For Prophylactic Vaccination & Inoculation/Influenza Office Visit 09/09/2012 1:00p [facility] Internal Tom Roa 333.94 Restless Leg Gustavo Lau M.D. Syndrome [place] 311 Depressive Disorder Not Elsewhere Spec 821.00 FX Femur Closed Unspec Part 555.9 Enteritis Unspec Site Office Visit 08/18/2012 3:00p [facility] Internal Tom Roa 788.41 Urinary Medicine Carl Lau M.D. Frequency [place] 555.9 Enteritis Unspec Site 821.00 FX Femur Closed Unspec Part 333.94 Restless Leg Syndrome Plan of Treatment Future Appointment(s):07/02/2018 10:45 am - Halima Turner M.D. at [facility]06/17/2018 3:30 pm - MARGO Martinez at [facility]06/17/2018 3:30 pm - Halima Turner M.D. at [facility]07/20/2018 9:20 am - Tom Lau M.D. at [facility] Internal Medicine - Qycimuhxy94/28/2019 - Halima Turner M.D.M25.561 Pain in right kneeFollow up:Follow up: 2 weeks after zyvrccvG81.461 Effusion, right kneeM17.11 Unilateral primary osteoarthritis, right knee
--- OUTSIDE RECORDS SUMMARY | 2018-06-17 09:17 | XMS REPORT | Continuity of Care Document ---
:1945 External Reference #:[id number] Author Name Bear Salcedo Care Team Providers Name Role Phone Tom Lau III, MD Primary Care Physician Unavailable Payers Type Date Identification Numbers Payment Provider Subscriber Effective: 2014 Policy Number: [id number] Medicare Blue Ppo Jessica Gordon PayID: [id number] [address] [address] [place] [address] Effective: 2008 Policy Number: [id number] Medicare Jessica Gordon Expires: 2014 PayID: [id number] [address] [place] [address] Effective: 2012 Policy Number: [id number] Of [facility] Jessica Gordon Expires: 2014 PayID: [id number] [address] [address] [place] [address] Effective: 2013 Policy Number: [id number] [employer] Jessica Gordon Onset: 2012 PayID: [id number] [address] [phone] Advance Directives Description No Information Available Problems [...] Comments Sex Unknown Marital Status Occupation Retired [employer] ETOH Use 03/08/2013 Occasionally consumes alcohol Tobacco Use Start: Unknown Patient has never smoked Smoking Status Reviewed: 05/21/18 Patient has never smoked Exercise Exercises regularly limited following Type/Frequency leg surgery/injury Allergies, Adverse Reactions, Alerts Description No Known Drug Allergies Medications Medication Date Status Form Strength Qnty SIG Indications Ordering Provider Cholestyramine 04/30 Active Packet 4gm 180un Mix 2 Tom E. its Packets In Judi, Liquid as M.D. Directed And Take By Mouth Daily Ranitidine HCL 12/21 Active Tablets 150mg 180ta [...] Iron Active 25mg 1 tab daily Unknown / Escitalopram Active Tablets 5mg 1/2 by Unknown mouth every day Tamsulosin HCL Active Capsules 0.4mg 1 by mouth Unknown every day Aspir-Low Active Tablets DR 81mg 1 by mouth Unknown every day Diphenoxylate-At 11/19 Hx Tablets 180ta take 2 Tom Crispin balline bs tablets 3 Judi, - times a [...] 800-160mg 20tab 1 by mouth R30.0 Tom E. /Trimethoprim s twice a day Judi, - [...] Packet 4gm 3Mont 2 by mouth K50.90 Tmo Roa h everyday Carl Lau M.D. 12/17 Requip 10/14 Hx Tablets 3mg 60tab 1 qd s Lavinia, - N.P. 09/01 Mirapex 10/12 Hx Tablets 0.125mg 30tab 1 po 2-3 Tom Roa s hrs before Judi - bedtime M.DMiriam 09/01 Ropinirole HCL 10/05 [...] 180un 2 po qd Tom EMiriam / Carl Page M.D. 10/05 Citalopram Hx [...] Tablets DR 20mg 1 by mouth Unknown / every day - 08/08 Cholestyramine Hx Packet [...] Tablets 250mg Unknown /0000 - 12/17 Prednisone 00/00 Hx Tablets 20mg Unknown /0000 - 12/17 Ventolin HFA Hx Aerosol 108(90Bas Unknown /0000 e) - mcg/Act 12/17 Flonase Allergy Hx Suspension 50mcg/Act spray 1 Unknown Relief / spray in - each 01/22 nostr twice daily Colestipol HCL 0000 Hx Tablets 1gm twice daily Unknown /0000 - 01/09 Clonazepam Hx Tablets 0.5mg 1 tab daily Unknown /0000 - 01/09 Tramadol HCL 00 Hx Tablets 50mg Jared, /0000 Carl Ly [...] CPT Code Status Date Vaccine Lot # [id number] Given 01/27/2018 Fluzone High Dose 29709 Given 12/09/2017 Zoster (Shingles) Vaccine (HZV), Recombinant, Subunit, Adjuvanted 35055 Given 09/11/2017 Zoster (Zostavax) 50835 Given 03/26/2016 Fluzone High Dose 64661 Given 02/12/2015 Influenza Virus Vaccine, Quadrivalent, Split, [id number] Preservative Free 02718 Given 09/04/2014 Tdap - Tetanus/Diptheria/Acellular Pertussis [id number] 65701 Given 09/04/2014 Pneumococcal Conjugate Vaccine 13 Valent For [id number] Intramuscular Use 98800 Given 03/08/2013 Flu Vaccine Split Virus Preservative Free For [id number] Indiv 3Yr Older 91967 Given 05/11/2011 Zoster (Zostavax) 23664 Ordered 01/08/2017 Influenza Virus Vaccine, Quadrivalent, Split, Preservative Free Vital Signs Date Vital Result Comment 05/21/2018 9:02am Height 67.5 inches 5'7.50" Weight [...] Result H/L Range Note Laboratory test 04/06/2018 [facility] PSA Screening 0.678 ng/mL N 0-4.0 finding [address] [place] [address] [phone] Laboratory test 10/02/2017 [facility] PSA Screening 0.626 ng/mL N 0-4.0 finding [address] [place] [address] [phone] Urinalysis Profile 07/27/2017 [facility] Urine Color Yellow [address] [place] [address] [phone] Urine Appearance Clear Urine Specific Nettie 1.023 N 1.010-1.030 Urine pH 5.0 N 5-9 Urine Urobilinogen Negative Negative Urine Ketones Negative Negative Urine Protein Negative Negative Urine Leukocytes Negative Negative Urine Blood Negative Negative Urine Nitrite Negative Negative Urine Bilirubin Negative Negative Urine Glucose Negative Negative CBC Auto Diff 07/27/2017 [facility] White Blood 5.7 10^3/uL N 3.5-10.[address] [place] [address] [phone] Red Blood Count 4.19 10^6/uL N 4.0-5.4 [...] Red Blood Cells % 0 Inr/Protime 07/27/2017 [facility] Inr 0.82 N 0.77-1.[address] [place] [address] [phone] Laboratory test 07/27/2017 [facility] Partial 29.7 seconds N 26.0-36.[address] [place] [address] PTT [phone] Comp Metabolic 07/27/2017 [facility] Sodium 138 mmol/L N 133- [address] [place] [address] [phone] Potassium 4.1 mmol/L N 3.5-5.0 Chloride 105 [...] Egfr Non- 78.7 >60 Egfr 101.2 >60 1 Type & Screen 07/27/2017 [facility] Patient Blood Type A Positive [address] [place], [place] [id number] [phone] Antibody Screen NEGATIVE Urine Culture 07/27/2017 [facility] Urine SEE RESULT [address] [place] [address] [phone] Laboratory test 02/13/2017 [facility] Hepatitis C Nonreactive N Nonreactive finding [address] Antibody [place], [place] [address] [phone] Urine Culture 01/08/2017 [facility] Urine SEE RESULT [address] Culture BELOW Sensitivities [place], [place] [address] [phone] Urinalysis 01/08/2017 [facility] Urine Color Yellow N Profile [address] [place], [place] [address] [phone] Urine Appearance Cloudy N Urine Specific Nettie 1.023 N 1.010-1.030 Urine pH 5.0 N [...] Sperm Present Abnormal Absent Laboratory test 01/08/2017 [facility] PSA Screening 2.805 N 0- 4.000 [address] ng/mL [place], [place] [address] [phone] Iron & Iron 11/22/2014 [facility] Unsaturated Iron 221 g/dL N 6 Binding Capacity [address] [place] [address] [phone] Total Iron Binding Capacity 284 g/dL N 250-450 % Iron Saturation 22 % N 15-55 Laboratory test 11/22/2014 [facility] Ferritin 187.9 ng/mL N 24-336 7 finding [address] [place] [address] [phone] Iron 63 g/dL N 50-212 Laboratory test 11/22/2014 [facility] Glucose 105 mg/dL High 70-100 [address] [place] [address] [phone] Lipid Profile 11/22/2014 [facility] Triglycerides 110 mg/dL N 9 (Trig/Chol/HDL) [address] [place] [address] [phone] Cholesterol 121 mg/dL N 10 HDL Cholesterol 46.2 mg/dL N 11 LDL Cholesterol 53 mg/dL N 12 Iron & Iron Binding 09/09/2012 [facility] Iron 67 g/dL 45- 182 [address] [place] [address] [phone] Unsaturated Iron Binding 298 g/dL Total Iron Binding Capacity 365 g/dL 250-450 % Iron Saturation 18 % 15-55 Laboratory test 08/24/2012 [facility] Erythrocyte Sed 19 mm/Hr 0-40 finding 101 [facility] [place] [address] [phone] C Reactive Protein < 0.5 mg/dL Less than 0.5 Urinalysis W/Microscopic 08/24/2012 [facility] Urine Color Yellow [address] [place] [address] [phone] Urine Appearance Clear Urine Specific Nettie 1.021 1.010-1.030 Urine Esterase Negative Negative Urine [...] 5 Kidney failure <15 (or dialysis) 2 SEE RESULT BELOW Name: JESSICA GORDON : [address]: Halima Turner MD Acct: [id number] Unit: [id number] AGE: 71 Location: [facility] Re07/27/17 SEX: M Status: REG REF SPEC: [id number] NESS: 07/27/17-1430 [facility] DR: Halima Turner MD REQ: [id number] RECD: 07/27/17260 STATUS: [facility] DR: Tom Lau III, MD _ S[facility]: [facility]: ORDERED: Urine Culture QUERIES: Urine Source: Clean Catch Procedure Result Reported Site Urine Culture Final 07/28/17- 1218 ML No Growth (<1,000 CFU/mL) * ML - Main Lab . END OF REPORT DEPARTMENT OF PATHOLOGY, [address] [place] [address] Kristopher Reveles M.D. Director [facility] # [id number] 3 SEE RESULT BELOW Name: JESSICA GORDON : [address]: Tom Lau III, MD Acct: [id number] Unit: [id number] AGE: 71 Location: [facility] Re01/08/17 SEX: M Status: REG REF SPEC: [id number] NESS: 01/08/[address]: Tom Lau III, MD REQ: [id number] RECD: 01/08/17 STATUS: COMP _ SOURCE: URINE SPDESC: ORDERED: Urine Culture Procedure Result Reported Site Urine Culture Final 01/10/17- 0736 ML Organism 1 KLEBSIELLA OXYTOCA Aristes Count >100,000 (Many) CFU/ML 1. KLEBSIELLA OXYTOCA [...] antibiotic reporting. * ML - MAIN LAB ([facility]) . END OF REPORT * ML=Testing performed at Main Lab DEPARTMENT OF PATHOLOGY, [address] [place] [address] Kristopher Reveles M.D. Director [facility] # [id number] 4 *Ascorbic acid is present which may [...] >189 mg/dL Procedures Date Code Description Status 05/21/201801231 Inject/Drain Joint/Bursa Major W/O US Completed 12/04/2017 Inject/Drain Joint/Bursa Major W/O US Completed 08/05/2017 38409 THR Total Hip Replacement Completed 08/05/2017 61884 THR Total Hip Replacement Completed 06/05/2016 10962126 Colonoscopy Completed Encounters Type Date Location Provider Dx Diagnosis Office Visit 01/01/2018 Orthopedic Halima Turner, M25.551 Pain in right hip 10:30a [facility] Z96.641 Presence of right artificial hip joint Z47.1 Aftercare following joint replacement surgery M25.462 Effusion, left knee M25.562 Pain in left knee Office Visit 12/04/2017 1:45p [facility] Halima Turner, M25.562 Pain in left Of [facility]. knee M25.462 Effusion, left knee M17.12 Unilateral primary osteoarthritis, left knee Office Visit 11/19/2017 [facility] Vero Roa K50.90 Crohn's disease, 3:00p Gustavo Lau M.D. unspecified, [place] without complications [facility] S[facility] and 9:15a [facility] Hospitalists K50.90 Crohn's disease, unspecified, without complications K21.9 Gastro-esophageal reflux disease without esophagitis Z96.641 Presence of right artificial hip joint Office Visit 07/28/2017 [facility] Vero Roa Z01.810 Encounter for 2:20p Gustavo [...] osteoarthritis, right C.M.A. hip Office Visit 01/09/2017 [facility] R30.0 Dysuria 11:00a Gustavo Lau M.D. [place] Office Visit 08/09/2015 [facility] J20.9 Acute bronchitis, 4:20p Gustavo Lau M.D. unspecified [place] Office Visit 07/17/2015 [facility] Vero Roa K50.90 Crohn's disease, 1:00p Gustavo Lau M.D. unspecified, without [place] complications Office Visit 02/12/2015 [facility] Tom Roa F41.8 Other specified 11:40a Gustavo Lau M.D. anxiety disorders [place] Z23 Encounter for immunization Office Visit 09/04/2014 11:00a [facility] V72.83 Examination Gustavo Lau M.D. Preoperative Other [place] Spec 366.10 Cataract Senile Unspec v06.1 Byvxlozsit-Ilhyqet-Nyixaeoe Combined (DTaP) v03.82 Streptococcus Pneumoniae Vaccination Spec Other 555.9 Enteritis Unspec Site 333.94 Restless Leg Syndrome 311 Depressive Disorder Not Elsewhere Spec Office Visit 05/02/2014 9:00a [facility] 311 Depressive Gustavo Lau M.D. Disorder Not [place] Elsewhere Spec Office Visit 03/31/2014 9:00a [facility] 536.8 Stomach Dyspepsia Gustavo Lau M.D. & Other Spec [place] Disorders Of Function 311 Depressive Disorder Not Elsewhere Spec Office Visit 11/16/2013 2:00p [facility] 719.47 Pain Joint Ankle & Gustavo Lau M.D. Foot [place] Office Visit 09/01/2013 2:00p [facility] V72.84 Examination Gustavo Lau M.D. Preoperative [place] Unspec 719.45 Pain Joint Pelvic Region & Thigh 555.9 Enteritis Unspec Site 333.94 Restless Leg Syndrome 311 Depressive Disorder Not Elsewhere Spec Office Visit 03/08/2013 1:20p [facility] 311 Depressive Gustavo Lau M.D. Disorder Not [place] Elsewhere Spec 333.94 Restless Leg Syndrome v04.81 Need For Prophylactic Vaccination & Inoculation/Influenza Office Visit 09/09/2012 1:00p [facility] Roa 333.94 Restless Leg Gustavo Lau M.D. Syndrome [place] 311 Depressive Disorder Not Elsewhere Spec 821.00 FX Femur Closed Unspec Part 555.9 Enteritis Unspec Site Office Visit 08/18/2012 3:00p [facility] Tom Roa 788.41 Urinary Gustavo Lau M.D. Frequency [place] 555.9 Enteritis Unspec Site 821.00 FX Femur Closed Unspec Part 333.94 Restless Leg Syndrome Plan of Treatment Future Appointment(s):06/17/2018 3:30 pm - Halima Turner M.D. at [facility].06/07/2018 8:15 am - Halima Turner M.D. at [facility].A.07/20/2018 9:20 am - Tom Lau M.D. at [facility] Internal Medicine - [facility]28/11/2019 - Halima Turner M.D.M25.562 Pain in left kneeM25.561 Pain in right kneeNew Xrays:Knee 3 Views RT, Ordered: M25.462 Effusion, left kneeM25.461 Effusion, right kneeM17.0 Bilateral primary osteoarthritis of kneeFollow up:Follow up: 1 week
[2018-06-17] MEDS ORDERED: Dexamethasone IV* 4 MG/ML 1 ML (4 MG) ONE (10:08)
[2018-06-17] MEDS ORDERED: ceFAZolin 2 GM PREMIX in ORs 2 GM/50 ML BAG IVPB ONE (10:08)
[2018-06-17] MEDS ORDERED: Famotidine IV* 10 MG/ML 2 ML (20 mg) ONE (10:08)
[2018-06-17] MEDS ORDERED: fentaNYL* 50 MCG/ML 2 ML VIAL (100 MCG VIAL) ONE (10:23)
[2018-06-17] MEDS ORDERED: Midazolam* 1 MG/ML 2 ML VIAL (2 MG) ONE (10:24)
[2018-06-17] MEDS ORDERED: Propofol* 10 MG/ML 20 ML BTL ONE (10:24)
[2018-06-17] MEDS ORDERED: Ondansetron INJ* 2 MG/ML VIAL IV PRN (11:35)
[2018-06-17] MEDS ORDERED: Morphine VIAL* 4 MG/ML VIAL (1 ml vial) IV PRN (11:35)
[2018-06-17] MEDS ORDERED: Ketorolac INJ* 30 MG/ML 1 ML VIAL IV PRN (11:35)
[2018-06-17] MEDS ORDERED: Naloxone* 0.4 MG/ML 1 ML VIAL IV PRN (11:35)
[2018-06-17] MEDS ORDERED: fentaNYL* 50 MCG/ML 2 ML VIAL (100 MCG VIAL) IV PRN (11:35)
[2018-06-17] MEDS ORDERED: Acetaminophen IV 1GM/100ML * 1,000 MG/100 ML VIAL IVPB ONE (11:35)
[2018-06-17] MEDS ORDERED: HYDROcodone/ACETAMIN 5-325 MG* 1 TAB PO PRN (11:35)
[2018-06-17] MEDS ORDERED: ROPIVACAINE 5 MG/ML 30 ML BTL (0.5%) ONE ×2 (11:58→13:41)
[2018-06-17] MEDS ORDERED: Lidocaine 1%* 5 ML VIAL ONE (11:58)
[2018-06-17] MEDS ORDERED: Bupivacaine 0.5% W/EPI SDV* 30 ML VIAL ONE (13:25)
[2018-06-17] MEDS ORDERED: Propofol* 500 MG/50 ML BTL ONE (13:30)
[2018-06-17] MEDS ORDERED: Polyethylene Glycol 3350* 17 GM PACKET PO PRN (15:48)
[2018-06-17] MEDS ORDERED: Morphine INJ* 2 MG/ML 1 ML SYRINGE (TWO MG - NEW SYRINGE VERSION) IV PRN (15:48)
[2018-06-17] MEDS ORDERED: diPHENhydraMINE PO* 25 MG PO PRN (15:48)
[2018-06-17] MEDS ORDERED: Magnesium Hydroxide LIQ* 30 ML UDC PO PRN (15:48)
[2018-06-17] MEDS ORDERED: oxyCODONE/Acetamin 5/325 MG* TAB PO PRN (15:48)
[2018-06-17] MEDS ORDERED: Acetaminophen TAB* 325 MG PO SCH (16:00)
[2018-06-17] MEDS ORDERED: Acetaminophen IV 1GM/100ML * 100 ML ONE (16:23)
[2018-06-17] MEDS: Lactated Ringers 1000 ML Bag* 1,000 ML IV SCH (17:25)
[2018-06-17] MEDS: Tamsulosin CAP* 0.4 MG PO SCH (18:40)
[2018-06-17] MEDS: oxyCODONE/Acetamin 5/325 MG* TAB PO PRN (18:40)
[2018-06-17] MEDS: Citalopram TAB* 10 MG PO SCH (19:21)
[2018-06-17] MEDS: Apixaban* 2.5 MG TAB PO SCH (20:53)
[2018-06-17] MEDS: Docusate CAP* 100 MG PO SCH (20:53)
[2018-06-17] MEDS: Magnesium Hydroxide LIQ* 30 ML UDC PO SCH (20:54)
[2018-06-17] MEDS: ceFAZolin 1 GM ADVAN(*) 1 GM in NS 0.9% 50 ML* 50 ML IVPB SCH (20:55)
[2018-06-17] MEDS ORDERED: Cyclobenzaprine TAB* 10 MG PO PRN (22:33)
[2018-06-17] MEDS: oxyCODONE TAB* 5 MG TAB PO PRN (22:46)
[2018-06-18] MEDS: oxyCODONE/Acetamin 5/325 MG* TAB PO PRN ×3 (00:43→19:47)
[2018-06-18] MEDS: Acetaminophen TAB* 325 MG PO SCH ×4 (00:48→23:49)
[2018-06-18] MEDS: oxyCODONE TAB* 5 MG TAB PO PRN ×4 (03:25→23:45)
[2018-06-18] MEDS: Lactated Ringers 1000 ML Bag* 1,000 ML IV SCH (03:25)
[2018-06-18] MEDS: ceFAZolin 1 GM ADVAN(*) 1 GM in NS 0.9% 50 ML* 50 ML IVPB SCH ×2 (05:12→13:49)
[2018-06-18 06:01] LABS: Hematocrit 32 % (42-52); Hemoglobin 10.9 g/dl (14.0-18.0); Mean Platelet Volume 7.2 fL (7.4-10.4); Platelet Count 253 10^3/ul (150-450)
[2018-06-18 06:28] LABS: BUN/Creatinine Ratio 27.2 (8-20); Calcium 8.6 mg/dL (8.6-10.3); EGFR African American 97.3 (>60); EGFR Non-African American 80.4 (>60); Potassium 4.1 mmol/L (3.5-5.0)
[2018-06-18] MEDS: Docusate CAP* 100 MG PO SCH ×2 (08:48→19:48)
[2018-06-18] MEDS: Magnesium Hydroxide LIQ* 30 ML UDC PO SCH ×2 (08:48→19:51)
[2018-06-18] MEDS: Apixaban* 2.5 MG TAB PO SCH ×2 (08:48→19:48)
[2018-06-18] MEDS: Famotidine TAB* 20 MG PO SCH (08:48)
[2018-06-18] MEDS: Vitamin THERAPEUTIC TAB PO SCH (08:48)
--- NOTE | 2018-06-18 10:46 | OP ---
OPERATIVE NOTE: DATE OF OPERATION: 06/17/2018 DATE OF : 1945 SURGEON: Halima Turner MD. LOPPER: MARGO Adam. Ms. Caldwell did help throughout the procedure with preparation of the leg, wound retraction, manipula tion of the knee, and wound closure. ANESTHESIOLOGIST: Dr. Fuller. ANESTHESIA TYPE: Spinal. PRE-OP DIAGNOSIS: Severe endstage degenerative osteoarthritis of the right knee joint. POST-OP DIAGNOSIS: Severe endstage degenerative osteoarthritis of the right knee joint. OPERATIVE PROCEDURE: Right total knee arthroplasty. COMPLICATIONS: None. ESTIMATED BLOOD LOSS: 200 cc. TOURNIQUET TIME: 59 minutes. SPECIMENS: Bone and cartilage from the right knee joint sent to pathology. HARDWARE USE: This is cemented total knee arthroplasty hardware [employer]. Two packages of Si mplex bone cement. For the femur, a right Legion size 6 posterior stabilized femoral component. For the tibia, a size 5 right tibial base plate Courtney II. For the insert, a 9-mm posterior stabilized articular insert size 5/6. For the patella, a 32-mm 3-peg all poly patella. BRIEF HISTORY/INDICATION: Mr. Gordon is a 72-year-old gentleman with years of right knee pain. He morfin d a significant multiligamentous knee injury in the past treated with surgery. Over the years he has developed posttraumatic severe endstage arthritis. Radiographs showed tebq-ia-cdez arthritis. He h ad failed conservative treatment with antiinflammatories, pain medication, intraarticular injection, and physical therapy. Due to continued pain and decreased quality of life, he elected to undergo a r ight total knee arthroplasty. Informed consent was obtained from the patient. He understood the risks of surgery included but were not limited to bleeding, infection, damage to nearby structures, continued pain, need for further lovelace rgery, intraoperative fracture, nerve palsy, hardware failure or loosening, knee stiffness, loss of m otion, stroke, heart attack, blood clot, and . Due to his permanent hardware, the patient under stood that this may have to be removed and I may need to do a revision implants. He wished to procee d. INTRAOPERATIVE FINDINGS: Intraoperatively, the patient was noted to have severe endstage arthritis w ith complete loss of cartilage in all three compartments. The patient was found to have some laxity of both the MCL and the LCL. DESCRIPTION OF PROCEDURE: Mr. Gordon was identified in the preanesthesia unit. His right lower extre mity was marked as the correct operative site. Informed consent was signed and placed in the chart. The patient was taken to the operating room and placed under spinal anesthesia. A Angelo catheter wa s placed. Tourniquet was placed on the right thigh. Right lower extremity was prepped and draped in the usual sterile fashion. Preop time-out was made to correctly identify the patient's side and sit e. Appropriate perioperative antibiotics were given within 1 hour of incision. Tourniquet was inflated until tourniquet time was 59 minutes. A midline incision was made with a 10- blade and carried down to the extensor mechanism. A new 10- blade was used to make a standard medial parapatellar arthrotomy. The patella was subluxed laterally. Electrocautery was used to subperiost eally elevate the soft tissue off the superomedial tibia to the mid sagittal plane. The medial metal staple was not encountered. The knee was flexed up. Anterior horn of the lateral meniscus and ACL was sharply released. A drill was used to enter the distal femur. Intramedullary distal femoral cutt ing guide was pinned on the distal femur. Oscillating saw was used to make the distal femoral cut. T he external rotation guide was pinned on the distal femur. Distal femur was sized to a size 6. Size 6 multi-cutting jig was pinned on the distal femur. Oscillating saw was used to make the appropriat e four chamfer cuts. Next, the PCL was completely released. Extramedullary tibial cutting guide was pinned on the proxima l tibia. Oscillating saw was used to make the proximal tibial cut perpendicularly to the mechanical axis of the tibia. The bone was carefully removed. The knee was brought out into full extension. M edial and lateral ligaments were well balanced. Flexion and extension gaps were well balanced. Tibia l tray and drop susi were placed. They confirmed a satisfactory tibial cut. Lamina catalyst supervisor was place d both medially and laterally. Any remaining meniscus was carefully removed using electrocautery. C urved osteotome was used to remove any posterior osteophytes. A size 6 right femoral trial was impacted on to the distal femur and had excellent fit and stability. The box for the posterior stabilized implant was prepared using a reamer and box cut osteotome. Si ze 5 tibial tray trial with an 9-mm insert trial was placed and the knee was taken through a range of motion. The knee was brought on to full extension and had 130 degrees of flexion with satisfactory patellofemoral tracking. The patella was everted. The 9-mm of patellar bone and cartilage was caref ully removed using an oscillating saw. The patella was sized to a size 32. Three pegs holes were dr illed through the size 32 guide. A 32 trial patella was placed and the knee was taken to the range o f motion. There was satisfactory patellofemoral tracking. All trials were carefully removed. The tibia was subluxed anteriorly and sized to a size 5. Proxima l tibia was prepared using a size 5 keel punch. With the keel punch in place, multiple images and mu ltiple views were obtained by C-arm. This showed that the staple was not interrupted. There was no change in position of the staple. The pins of the implant were not in contact with the staple. All bony cut surfaces were copiously irrigated with sterile saline and dried. The final implants wer e cemented into place starting with the tibia, followed by the femur, and last the patella. A 9-mm i nsert trial was placed and the knee was brought out into full extension. Tourniquet was turned down at 59 minutes. The knee was copiously irrigated with sterile saline. Electrocautery was used to obtain meticulous h emostasis. Once the cement had fully cured, the insert trial was removed. Any excess cement was rem anuradha around the capsule and hardware. Final insert chosen was a 9-mm posterior stabilized size 5/6. This was locked into position on the tibial tray. Stability of the insert was checked and rechecked and noted to be stable. The extensor mechanism was closed using interrupted #1 Vicryls. The rest o f the incision was closed in a layered fashion using 0 and 2-0 Vicryls. Skin was closed using runnin g 3-0 nylon suture. Sterile Xeroform, 4x4s, and Webril were used to cover the incision. Calvin wrap an d cold pack were placed over this. The patient's anesthesia was reversed without difficulty. He was taken to the PACU in stable condition. Intended weightbearing will be weightbearing as tolerated. Intended DVT prophylaxis will be Eliquis. [id number]/[facility] #: [id number]
[2018-06-18] MEDS ORDERED: Temazepam CAP* 15 MG PO PRN (11:11)
--- NOTE | 2018-06-18 11:20 | PN ---
Progress Note - Progress Note Date of Service: 06/18/18 SOAP: Subjective: 72 y/o male s/p L TKA by Johnny Ennis 06/17/2018. patient reports feeling well, pain well controlled, working well with PT. VSS, afebrile overnight. Objective: General- Well appearing, NAD, AO resiting in chair comfortably. MSK- LLE- DF/PF = b/l, PT 2+, negative homans sign, dressing intact, no drainage noted, no erythema, indurated noted. SITLT distal to knee. Vital Signs Temp 98.0 F 06/18/18 07:43 Pulse 72 06/18/18 07:43 Resp 16 06/18/18 11:11 BP 129/69 06/18/18 07:43 Pulse Ox 100 06/18/18 07:43 Intake & Output 06/17/18 06/18/18 06/18/18 18:59 06:59 18:59 Intake Total 1700 1990 200 Output Total 500 1200 400 Balance 1200 790 -200 Weight 92.079 kg Intake: IV Fluids 1700 990 LR 1700 990 Oral 1000 200 Output: Urine 50 400 Angelo 250 1150 Estimated Blood Loss 250 Assessment: Stable s/p L TKA by Dr. Turner 06/17/2018. Plan: - DVT prophylaxis- lovenox, elquis at home - Continue PT/ OT - Follow up with Dr. Turner within 10-14 days - H&H - stable - post-op IV ABX - Running - Likely D/C to home tomorrow Acetaminophen (Tylenol Tab*) 975 mg PO 0000,0800,1600 [facility] Last Admin: 06/18/18 08:33 Dose: Not Given Apixaban (Eliquis*) 2.5 mg PO BID [facility] Last Admin: 06/18/18 08:48 Dose: 2.5 mg Citalopram Hydrobromide (Celexa Tab*) 10 mg PO QPM [facility]; Protocol Last Admin: 06/17/18 19:21 Dose: 10 mg Cyclobenzaprine HCl (Flexeril Tab*) 10 mg PO TID PRN PRN Reason: SPASMS Last Admin: 06/17/18 22:47 Dose: 10 mg Diphenhydramine HCl (Benadryl Po*) 25 mg PO Q6H PRN PRN Reason: itching Docusate Sodium (Colace Cap*) 100 mg PO BID [facility] Last Admin: 06/18/18 08:48 Dose: 100 mg Famotidine (Pepcid Tab*) 40 mg PO QAM [facility]; Protocol Last Admin: 06/18/18 08:48 Dose: 40 mg Cefazolin Sodium 1 gm/ Sodium (Chloride) 50 mls @ 200 mls/hr IVPB Q8H [facility] Stop: 06/18/18 13:14 Last Admin: 06/18/18 05:12 Dose: 200 mls/hr Lactated Ringer's (Lactated Ringers 1000 Ml Bag*) 1,000 mls @ 100 mls/hr IV PER RATE [facility] Last Admin: 06/18/18 03:25 Dose: 100 mls/hr Lactulose (Lactulose*) 30 ml PO Q6H PRN PRN Reason: constipation Magnesium Hydroxide (Milk Of Magnesia Liq*) 30 ml PO BID [facility] Last Admin: 06/18/18 08:48 Dose: 30 ml Magnesium Hydroxide (Milk Of Magnesia Liq*) 30 ml PO Q6H PRN PRN Reason: constipation Morphine Sulfate (Morphine Inj ((Syringe))*) 2 mg IV Q2H PRN PRN Reason: PAIN Last Admin: 06/18/18 00:44 Dose: 2 mg Multivitamins (Theragran Tab*) 1 tab PO DAILY [facility] Last Admin: 06/18/18 08:48 Dose: 1 tab Oxycodone HCl (Roxycodone Tab*) 10 mg PO Q4H PRN PRN Reason: PAIN - MODERATE TO SEVERE Last Admin: 06/18/18 11:11 Dose: 10 mg Oxycodone/Acetaminophen (Percocet 5/325 Tab*) 1 tab PO Q4H PRN PRN Reason: PAIN Last Admin: 06/18/18 08:50 Dose: 1 tab Oxycodone/Acetaminophen (Percocet 5/325 Tab*) 2 tab PO Q4H PRN PRN Reason: PAIN Last Admin: 06/18/18 00:43 Dose: 2 tab Polyethylene Glycol/Electrolytes (Miralax*) 17 gm PO DAILY PRN PRN Reason: Constipation Tamsulosin HCl (Flomax Cap*) 0.8 mg PO QPM [facility] Last Admin: 06/17/18 18:40 Dose: 0.8 mg Temazepam (Restoril Cap*) 15 mg PO BEDTIME PRN PRN Reason: INSOMNIA Laboratory Results - last 24 hr 06/18/18 06/18/18 05:54 05:54 Hgb 10.9 L Hct 32 L Plt Count 253 MPV 7.2 L Sodium 135 Potassium 4.1 Chloride 103 Carbon Dioxide 27 Anion Gap 5 BUN 25 H Creatinine 0.92 Est GFR ( Amer) 97.3 Est GFR (Non-Af Amer) 80.4 BUN/Creatinine Ratio 27.2 H Glucose 129 H Calcium 8.6
[2018-06-18] MEDS: Citalopram TAB* 10 MG PO SCH (18:17)
[2018-06-18] MEDS: Tamsulosin CAP* 0.4 MG PO SCH (18:17)
[2018-06-19] MEDS: oxyCODONE/Acetamin 5/325 MG* TAB PO PRN ×2 (03:49→07:55)
[2018-06-19 05:17] LABS: Hematocrit 30 % (42-52); Hemoglobin 10.3 g/dl (14.0-18.0); Mean Platelet Volume 7.5 fL (7.4-10.4); Platelet Count 230 10^3/ul (150-450)
[2018-06-19] MEDS: Acetaminophen TAB* 325 MG PO SCH (07:47)
[2018-06-19] MEDS: Apixaban* 2.5 MG TAB PO SCH (07:55)
[2018-06-19] MEDS: Vitamin THERAPEUTIC TAB PO SCH (07:55)
[2018-06-19] MEDS: Famotidine TAB* 20 MG PO SCH (07:55)
[2018-06-19] MEDS: Docusate CAP* 100 MG PO SCH (07:55)
[2018-06-19] MEDS: Magnesium Hydroxide LIQ* 30 ML UDC PO SCH (07:56)
--- NOTE | 2018-06-19 09:14 | PN ---
Progress Note - Progress Note Date of Service: 06/19/18 SOAP: Subjective: Pt is doing well. Pain is controlled. Doing well with therapy. Denies F/C,CP/ SOB or calf pain Objective: PE- 72 y/o WDWN M NAD, A&Ox3 LLE- dressing changed, inc c/d/i, calf soft NT, +DF/PF ankle, NVI Vital Signs Temp Pulse Resp BP Pulse Ox 98.3 F 82 16 129/69 98 06/19/18 07:19 06/19/18 07:19 06/19/18 07:55 06/19/18 07:19 06/19/18 07:19 Laboratory Results - last 24 hr 06/19/18 04:46 Hgb 10.3 L Hct 30 L Plt Count 230 MPV 7.5 Assessment: Stable s/p L TKA by Dr. Turner 06/17/2018. Plan: - DVT prophylaxis- elquis at home - Continue PT/ OT -Percocet and cyclobenzaprine for pain, Colace for constipation - Follow up with Dr. Turner within 10-14 days - D/C to home tomorrow with home PT
--- NOTE | 2018-06-19 11:30 | DS ---
AMENDED REPORT NOW INCLUDES COSIGNER DESIGNATION DISCHARGE SUMMARY: DATE OF ADMISSION: 06/17/18 DATE OF DISCHARGE: 06/19/18 ATTENDING PROVIDER: Dr. Turner * (DICTATED BY MARGO ARMENTA) ADMISSION DIAGNOSIS: Status post right total knee arthroplasty for treatment of severe right knee osteoarthritis. SECONDARY DIAGNOSES: 1. History of left femur fracture. 2. Crohn disease. 3. Dysthymic disorder. CONSULTATIONS: PT/OT. HISTORY OF PRESENT ILLNESS: Mr. Gordon is a 72-year-old gentleman with complaints of right knee pain due to end-stage osteoarthritis. He failed conservative treatment and elected to proceed with a right total knee arthroplasty with Dr. Turner on 06/17/18. HOSPITAL COURSE: He was admitted to [facility] on 06/17/18. He underwent a right total knee arthroplasty. Postoperatively, he recovered in the short-stay surgical unit. On postop day 1, his Angelo catheter was removed. He was able to urinate on his own. He advanced to a regular diet without difficulty, and pain was controlled with oral Percocet. He was restarted on home medications. His labs and vitals remained stable. He was able to weight bear as tolerated on the right lower extremity. He advanced appropriately with physical therapy and occupational therapy. DVT prophylaxis was managed with Lovenox and then Eliquis on the day of discharge. By postop day 2, he was orthopedically and medically stable for discharge to home with VNS services. PHYSICAL EXAMINATION: A 72-year-old well-developed, well-nourished male in no acute distress. Right lower extremity: Skin is intact. Dressing was changed. Well-healing surgical incision. Calf soft, nontender. Able to dorsiflex and plantarflex the ankle. +2 DP pulse. Sensation intact to light touch distally. DISCHARGE CONDITION: Stable. DISCHARGE MEDICATIONS: Home medications continued on discharge to include: 1. Lomotil 2.5 two tabs by mouth twice a day. 2. Questran 4 g powder 2 packets by mouth in the morning. 3. Zantac 300 mg by mouth in the morning. 4. Iron 65 mg by mouth in the morning. 5. Vitamin B12 one dose IM monthly. 6. Lexapro 5 mg by mouth in the morning. 7. Flomax 2 mg by mouth in the evening, discontinued on discharge. 8. Aspirin 81 mg by mouth daily. New medications on discharge include: 1. Eliquis 2.5 mg 1 by mouth twice a day. 2. Flexeril 10 mg 1 by mouth 3 times a day as needed for muscle spasm. 3. Docusate sodium 100 mg by mouth 2 to 3 times a day as needed for constipation. 4. Percocet 5/325 mg 1 to 2 every 4 to 6 hours as needed for pain. 5. Restoril 15 mg 1 by mouth at bedtime as needed for insomnia. DISCHARGE INSTRUCTIONS: The patient is weightbearing as tolerated. Okay to shower on postop day 3. No bathing or submerging the wound. Use gentle soap, pat dry. Cover with gauze, Calvin, and tape. Call the orthopedics office with increased drainage, redness, increase pain, or fever. Go to the ER with chest pain or shortness of breath. Regular diet, increased fluids and fiber to prevent constipation. Continue to use stool softeners. Call the office if no bowel movements in 48 hours. Continue PT and OT exercises as shown. DVT prophylaxis with Eliquis 2.5 mg 1 by mouth twice a day x1 month. Do not take aspirin, naproxen, or ibuprofen while on Eliquis. Pain control with Percocet 1 to 2 every 4 to 6 hours as needed for pain with an MDD of 10. Flexeril as needed for muscle spasms. Colace for constipation and Restoril as needed for insomnia. Antibiotics will be required prior to any dental work. He will follow up with Dr. Turner in 10 to 14 days and may call for an appointment. May call the office with any questions or concerns. His medications were sent to [id number]. MARGO ARMENTA [id number]/[facility] #: [id number] SHAYAN
[2018-06-19 12:08] VITALS: BP 131/74
== END 2018-06-19 13:50 | disposition home health service (06) | DRG 470 ==
LOC: AA 09:12 → SSU 17:08
PROVIDERS: ADMIT Orthopaedic Surgery Adult Reconstructive Orthopaedic Surgery; ATTEND Orthopaedic Surgery Adult Reconstructive Orthopaedic Surgery
PROC: 0SRC0J9 Replacement of Right Knee Joint with Synthetic Substitute, Cemented, Open Approach (ICD-10-PCS; principal; 2018-06-17 12:00)
DX: M17.11 Unilateral primary osteoarthritis, right knee (principal); K50.90 Crohn's disease, unspecified, without complications; F34.1 Dysthymic disorder; Z96.643 Presence of artificial hip joint, bilateral; Z79.899 Other long term (current) drug therapy; Z80.1 Family history of malignant neoplasm of trachea, bronchus and lung
CPT/HCPCS: 36415; 76000; 80048; 85014; 85018; 85049; A9270-GY; G8978-GP-CJ; G8979-GP-CI; G8987-GO-CJ; G8988-GO-CJ; G8989-GO-CJ; J0690; J1100; J2250; J2270; J2704; J2795; J3010

== ENCOUNTER 2018-08-27 11:59 | Emergency (ER) | payer MEDICARE ==
--- OUTSIDE RECORDS SUMMARY | 2018-08-27 12:06 | XMS REPORT | Continuity of Care Document ---
:1945 External Reference #:[id number] Author Name Cedric Weaveren Care Team Providers Name Role Phone Tom Lau III, MD Primary Care Physician Unavailable Payers Date Identification Numbers Payment Provider Subscriber Effective: 2014 Policy Number: [id number] Medicare Blue Ppo Jessica Calvo PayID: [id number] [address] [address] [place] [address] Effective: 2008 Policy Number: [id number] Medicare Jessica Calvo Expires: 2014 PayID: [id number] [address] [place] [address] Effective: 2012 Policy Number: [id number] [facility] Jessica Calvo Expires: 2014 PayID: [id number] [address] [address] [place] [address] Effective: 2013 Policy Number: [id number] [facility] Jessica Calvo Onset: 2012 PayID: [id number] [address] [address] [place] [address] Advance Directives Description No Information Available Problems Active Problems Provider Date Increased frequency of urination Tom Lau M.D. Onset: 08/18/2012 Crohn's disease Tom Lau M.D. Onset: 08/18/2012 Closed fracture of femur Tom Lau M.D. Onset: 08/18/2012 Restless legs Tom Lau M.D. Onset: 08/18/2012 Depressive disorder Tom Lau M.D. Onset: 09/09/2012 Dysthymic disorder Tom Lau M.D. Onset: 01/23/2017 Localized, primary osteoarthritis of the Mona Ramires MD Onset: 07/17/2017 pelvic region and thigh Localized, primary osteoarthritis Halima Turner M.D. Onset: 12/04/2017 Arthroplasty of knee Halima Turner M.D. 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 ETOH Use 03/08/2013 Occasionally consumes alcohol Tobacco Use Start: Unknown Patient has never smoked Smoking Status Reviewed: 08/27/18 Patient has never smoked Exercise Exercises regularly limited by knee pain Type/Frequency sx Allergies, Adverse Reactions, Alerts Description No Known Drug Allergies Medications Active Medications SIG Qnty Indications Ordering Date Provider Diphenoxylate-Atropin 1 tab every 4-6 hours 180tabs Tom Roa e as needed for Norberto Lau 9 2.5-0.025mg Tablets diarrhea Cyclobenzaprine HCL take 1 tab three 30tabs Halima Turner, times a day as needed Norberto 9 10mg Tablets for pain/muscle spasms Cholestyramine mix 2 packets in 180units Tom Roa 4gm liquid as directed Norberto Lau 8 Packet and take by mouth daily Ranitidine HCL take 1 tablet by 180tabs Tom Roa 150mg mouth twice a day Norberto Lau 8 Tablets Temazepam take one by mouth one 30caps Halima Turner, 15mg Capsules hour before bed as Norberto 8 needed for sleep. BD TB Syringe For Use With B-12 15units Tom Roa 27GX1/2" Injections Norberto Lau 7 BD 1ML Tuberculin to be used with vit b units Tom EMiriam Syringe/Safetyglide 12 injections Norberto Lau 4 TB Needle 27GX1/2" 27G X 1/2" 1 ML Misc Cyanocobalamin Inject 1ML 25units Tom Roa Intramuscularly Every Norberto Lau 4 1000mcg/ML Solution Month Iron 1 tab daily Unknown 25mg 0 Escitalopram Oxalate 1/2 of a 10 mg tab by Unknown mouth every day 0 5mg Tablets Tamsulosin HCL 1 by mouth every day Unknown 0.4mg 0 Capsules History Medications Percocet 1 tabs by mouth 70tabs Z96.652 Halima Turner, 06/19/2018 - 5-325mg every 4-6 hours as M.D. 08/26/2018 Tablets needed pain. S/P total knee. taking this dose in hosp and responding well Colace 1 tab by mouth 90caps Halima Turner, 06/19/2018 - 100mg Capsules three times a day M.DMiriam 07/30/2018 as needed constipation Eliquis take 1 tab every 60tabs Halima Turner, 06/19/2018 - 2.5mg Tablets 12 hours x 4 weeks M.DMiriam 07/30/2018 post op Diphenoxylate-Atropin take 2 tablets by 180tabs Tom Roa 11/26/2017 - e mouth 3 times Norberto Lau 07/13/2018 2.5-0.025mg Tablets daily Diphenoxylate-Atropin take 2 tablets 3 180tabs Tom Roa 11/19/2017 - e times a day. carolaMiriam Lau M.D. 11/26/2017 Tablets daily dose: 6 tabs. Coumadin take 1-3 tabs by 90tabs Halima Turner, 08/08/2017 - 2mg Tablets mouth at 5 at M.D. 08/08/2017 night as directed Oxycodone-Acetaminoph 1-2 tabs by mouth 90tabs Halima Turner, 08/08/2017 - en every 6 hours as M.DMiriam 12/31/2017 5-325mg Tablets needed for pain Cyclobenzaprine HCL take 1 tab by 60tabs Halima Turner, 08/08/2017 - mouth 2-3 times a M.D. 12/31/2017 10mg Tablets day as needed for spasms Aspirin take 1 by mouth 60tabs Halima Turner, 08/08/2017 - 325mg Tablets twice a day for M.D. 11/16/2017 four weeks Questran Take 2 Packets By 180cole oRa 01/28/2017 - 4gm Packet Mouth Daily as Norberto Lau 04/30/2018 Directed Sulfamethoxazole/Trim 1 by mouth twice a 20tabs R30.0 Tom Roa 2016 - ethoprim DS day Norberto Lau 01/22/2017 800-160mg Tablets Cholestyramine Light take 2 packets by amos Roa 10/22/2015 - mouth daily as Norberto Lau 01/09/2017 4gm Packet directed Diphenoxylate-Atropin take 1-2 tablets 180tabs Tom Roa 09/12/2015 - e by mouth 3 times Norberto Lau 05/11/2018 2.5-0.025mg Tablets daily as needed for diarrhea Xanax 1/2 tab to 1 tab 20tabs F41.9 Tom Roa 02/12/2015 - 1mg Tablets po up to 3 times a Norberto Lau 07/17/2015 day Bupropion HCL ER (XL) 1 by mouth every 90tabs F41.9 Tom Roa 05/02/2014 - day Norberto Lau 07/17/2015 300mg Tablets ER 24HR Bupropion HCL ER (XL) 1 by mouth every 30tabs Samira Wei 03/31/2014 - day Dionicio, 05/02/2014 150mg Tablets ER 24HR Bala.DMiriam,FACP Questran Light 2 by mouth every 3month Tom Roa 10/05/2013 - 4gm day Norberto Lau 10/05/2013 Packet Questran Light 2 by mouth 3Month K50.90 Tom Roa 10/05/2013 - 4gm everyday Norberto Lau 12/18/2015 Packet Requip 1 qd 60tabs Vivian 10/14/2012 - 3mg Tablets Lavinia, 09/01/2013 N.P. Mirapex 1 po 2-3 hrs 30tabs Tom Roa 10/12/2012 - 0.125mg Tablets before bedtime Norberto Lau 09/01/2013 Ropinirole HCL 1 tab by mouth 30tabs Tom Roa 10/05/2012 - 0.25mg every night Norberto Lau 10/12/2012 Tablets B12 Im 1 Q Month Tom Roa 09/09/2012 - Norberto Lau 08/08/2013 Requip 1 po qd in the 60tabs 333.94 Tom Roa 09/09/2012 - 0.25mg Tablets morning Norberto Lau 10/12/2012 Lomotil take 1-2 tablets 180tabs Tom Roa 08/26/2012 - 2.5-0.025mg by mouth 3 times a Norberto Lau 09/12/2015 Tablets day as needed for diarrhea *max 6/day* Lexapro 1 by mouth every Unknown - 5mg Tablets day 12/18/2015 Multivitamin Adult 1 by mouth every Unknown - day 07/30/2018 Tablets Azithromycin Unknown - 250mg 12/18/2015 Tablets Prednisone Unknown - 20mg Tablets 12/18/2015 Ventolin HFA Unknown - 12/18/2015 108(90Base) mcg/Act Aerosol Flonase Allergy spray 1 spray in Unknown - Relief each nostril twice 01/22/2017 50mcg/Act daily Suspension Colestipol HCL twice daily Unknown - 1gm 01/09/2017 Tablets Clonazepam 1 tab daily Unknown - 0.5mg 01/09/2017 Tablets Tramadol HCL Jeff Coleman - 50mg MD Ángela 05/20/2018 Tablets Lomotil take one tablet 120tabs Carlie - 2.5-0.025mg every 6 hours as Norberto Hillman 11/19/2017 Tablets needed. max. daily dose: 4 tabs. Aspir-Low 1 by mouth every Unknown - 81mg Tablets day 06/06/2018 Naproxen 1 tablet with food Unknown - 500mg Tablets by mouth twice a 05/20/2018 day Ranitidine HCL 1 cap by mouth 30caps Tom Roa - 300mg every night Norberto Lau 12/21/2017 Capsules Colestipol HCL 2 by mouth every 60tabs Unknown - 1gm day 07/17/2015 Tablets Cholestyramine Light Unknown - 02/12/2015 4gm Packet Prilosec OTC 1 by mouth every Unknown - 20mg day 08/09/2015 Tablets Naproxen 1 by mouth twice a 30tabs Unknown - Tablets day as needed 09/15/2013 Folic Acid 1 po qd 14caps Unknown - 5mg Capsules 09/04/2014 Requip Unknown - 3mg Tablets 10/12/2012 Citalopram 1 po qd 60tabs Tom Roa - Hydrobromide Norberto Lau 09/01/2013 40mg Tablets Questran 2 po qd 180units Tom Ho. - 4gm Packet Norberto Lau 10/05/2013 Diphen 2 po in the am and Unknown - 25mg Tablets 1 po hs 08/18/2012 Aspirin Ec 1 po qd 90tabs Unknown - 325mg 11/16/2017 Tablets Calcium 600 + D 2 po qd Unknown - 09/04/2014 [id number] Tablets Medications Administered in Office Medication SIG Qnty Indications Ordering Provider Date Depomedrol 40MG Halima Turner M.D. 05/21/2018 Injection Depomedrol 40MG Halima Turner M.D. 12/04/2017 Injection Immunizations CPT Code Status Date Vaccine Lot # [id number] Given 06/03/2018 Pneumonia Vaccine [id number] 43563 Given 01/27/2018 Fluzone High Dose 90303 Given 12/09/2017 Zoster (Shingles) Vaccine (HZV), Recombinant, Subunit, Adjuvanted 51696 Given 09/11/2017 Zoster (Zostavax) 72571 Given 03/26/2016 Fluzone High Dose 45802 Given 02/12/2015 Influenza Virus Vaccine, Quadrivalent, Split, [id number] Preservative Free 48047 Given 09/04/2014 Tdap - Tetanus/Diptheria/Acellular Pertussis [id number] 22363 Given 09/04/2014 Pneumococcal Conjugate Vaccine 13 Valent For [id number] Intramuscular Use 61966 Given 03/08/2013 Flu Vaccine Split Virus Preservative Free For [id number] Indiv 3Yr Older 39431 Given 05/11/2011 Zoster (Zostavax) [id number] Ordered 01/08/2017 Influenza Virus Vaccine, Quadrivalent, Split, Preservative Free Vital Signs Date Vital Result Comment 08/27/2018 9:36am Height 66 inches 5'6" Weight 197.00 lb Heart Rate 64 /min BP Systolic 112 mmHg BP Diastolic 70 mmHg Respiratory Rate 14 /min Pain Level 0 BMI (Body Mass Index) 31.8 kg/m2 07/30/2018 10:38am Height 66 inches 5'6" Weight 201.00 lb BP Systolic 122 mmHg BP Diastolic 78 mmHg Pain Level 1 BMI (Body Mass Index) 32.4 kg/m2 07/20/2018 9:24am Height 66 inches 5'6" Weight 201.00 lb Heart Rate 88 /min BP Systolic Sitting 100 mmHg BP Diastolic Sitting 70 mmHg O2 % BldC Oximetry 99 % BMI (Body Mass Index) 32.4 kg/m2 07/02/2018 10:55am Height 67.5 inches 5'7.50" Weight 195.00 lb BP Systolic 118 mmHg BP Diastolic 64 mmHg Body Temperature 97.9 F BMI (Body Mass Index) 30.1 kg/m2 06/07/2018 8:22am Height 67.5 inches 5'7.50" Weight [...] Date Facility Test Result H/L Range Note Inr/Protime 06/07/2018 [facility] Inr 0.82 N 0.77-1.[address] [place] [address] [phone] Laboratory test 06/07/2018 [facility] Partial 27.3 seconds N 26.0-36.[address] [place] [address] PTT [phone] Type & Screen 06/07/2018 [facility] Patient Blood A Positive [address] [place] [address] [phone] Antibody Screen NEGATIVE Basic Metabolic Panel 06/04/2018 [facility] Sodium 138 mmol/L N 135-[address] [place] [address] [phone] Potassium 4.0 mmol/L N 3.5-5.0 Chloride 105 mmol/L N 101-111 Co2 Carbon Dioxide 27 mmol/L N 22-32 Anion Gap 6 mmol/L N 2-11 Glucose 106 mg/dL High 70-100 Blood Urea Nitrogen 23 mg/dL N 6-24 Creatinine 0.93 mg/dL N 0.67-1.17 BUN/Creatinine Ratio 24.7 High 8-20 Calcium 9.2 mg/dL N 8.6-10.3 Egfr Non- 79.4 >60 Egfr 96.1 >60 2 CBC Auto Diff 06/04/2018 [facility] White Blood 10.4 10^3/uL N 3.5-10.[address] [place] [address] [phone] Red Blood Count 4.33 10^6/uL N 4.00-5.40 [...] Blood Cells % 0 Urinalysis Profile 06/04/2018 [facility] Urine Color Yellow [address] [place] [address] [phone] Urine Appearance Cloudy Urine Specific [place] 1.020 N 1.010-1.030 Urine pH 5.0 N 5-9 Urine Urobilinogen Negative Negative Urine Ketones Negative Negative Urine Protein Negative Negative Urine Leukocytes Negative Negative Urine Blood Negative Negative Urine Nitrite Negative Negative Urine Bilirubin Negative Negative Urine Glucose Negative Negative Lipid Profile 06/04/2018 [facility] Triglycerides 75 mg/dL 3 (Trig/Chol/HDL) [address] [place] [address] [phone] Cholesterol 128 mg/dL 4 HDL Cholesterol 59.1 mg/dL 5 LDL Cholesterol 54 mg/dL 6 Laboratory test 04/06/2018 [facility] PSA Screening 0.678 ng/mL N 0-4.0 finding [address] [place] [address] [phone] Laboratory test 10/02/2017 [facility] PSA Screening 0.626 ng/mL N 0-4.0 finding [address] [place] [address] [phone] Urinalysis 07/27/2017 [facility] Urine Color Yellow Profile [address] [place] [address] [phone] Urine Appearance Clear Urine Specific [place] 1.023 N 1.010-1.030 Urine pH 5.0 N 5-9 Urine Urobilinogen Negative Negative Urine Ketones Negative Negative Urine Protein Negative Negative Urine Leukocytes Negative Negative Urine Blood Negative Negative Urine Nitrite Negative Negative Urine Bilirubin Negative Negative Urine Glucose Negative Negative CBC Auto Diff 07/27/2017 [facility] White Blood 5.7 10^3/uL N 3.5-10.8 [address] [place] [address] [phone] Red Blood Count 4.19 10^6/uL N 4.0-5.4 [...] Red Blood Cells % 0 Inr/Protime 07/27/2017 [facility] Inr 0.82 N 0.77-1.[address] [place] [address] [phone] Laboratory test 07/27/2017 [facility] Partial 29.7 seconds N 26.0-36.[address] [place] [address] PTT [phone] Comp Metabolic 07/27/2017 [facility] Sodium 138 mmol/L N 133- [address] [place] [address] [phone] Potassium 4.1 mmol/L N 3.5-5.0 Chloride 105 [...] Non- 78.7 >60 Egfr 101.2 >60 7 Type & Screen 07/27/2017 [facility] Patient Blood Type A Positive [address] [place] [address] [phone] Antibody Screen NEGATIVE Urine Culture 07/27/2017 [facility] Urine SEE RESULT [address] [place] [address] [phone] Laboratory test 02/13/2017 [facility] Hepatitis C Nonreactive N Nonreactive finding [address] Antibody [place], [place] [address] [phone] Urine Culture 01/08/2017 [facility] Urine SEE RESULT [address] [place] [address] [phone] Urinalysis 01/08/2017 [facility] Urine Color Yellow N Profile [address] [place] [address] [phone] Urine Appearance Cloudy N Urine Specific [place] 1.023 N 1.010-1.030 Urine pH 5.0 N 5-9 Urine Urobilinogen Negative N Negative Urine Ketones Negative N Negative Urine Protein Negative N Negative Urine Leukocytes 3+ Abnormal Negative Urine Blood Negative N Negative * * Abnormal Negative 10 Urine Nitrite Negative N Negative Urine Bilirubin Negative N Negative Urine Glucose Negative N Negative Urine White Blood Cell 3+(>20/hpf) Abnormal Absent Urine Red Blood Cell 1+(3-5/hpf) Abnormal Absent Urine Bacteria 1+ Abnormal Absent Urine Sperm Present Abnormal Absent Laboratory test 01/08/2017 [facility] PSA Screening 2.805 N 0- 4.000 [address] ng/mL [place], [place] [address] [phone] Laboratory test 11/22/2014 [facility] Ferritin 187.9 N 24-336 12, [address] ng/mL [place], [place] [address] [phone] Iron 63 g/dL N 50-212 Iron & Iron 11/22/2014 [facility] Unsaturated Iron 221 g/dL N Binding Capacity [address] [place] [address] [phone] Total Iron Binding Capacity 284 g/dL N 250-450 % Iron Saturation 22 % N 15-55 Laboratory test 11/22/2014 [facility] Glucose 105 mg/dL High 70-100 [address] [place], [place] [address] [phone] Lipid Profile 11/22/2014 [facility] Triglycerides 110 mg/dL N 15 (Trig/Chol/HDL) [address] [place], [place] [address] [phone] Cholesterol 121 mg/dL N 16 HDL Cholesterol 46.2 mg/dL N 17 LDL Cholesterol 53 mg/dL N 18 Iron & Iron Binding 09/09/2012 [facility] Iron 67 g/dL 45- 182 [address] [place] [address] [phone] Unsaturated Iron Binding 298 g/dL Total Iron Binding Capacity 365 g/dL 250-450 % Iron Saturation 18 % 15-55 Laboratory test 08/24/2012 [facility] Erythrocyte Sed 19 mm/Hr 0-[address] [place] [address] [phone] C Reactive Protein < 0.5 mg/dL Less than 0.5 Urinalysis W/Microscopic 08/24/2012 [facility] Urine Color Yellow [address] [place] [address] [phone] Urine Appearance Clear Urine Specific [place] 1.021 1.010-1.030 Urine Esterase Negative Negative Urine Nitrate Negative Negative Urine Urobilinogen Negative E.U./dL Negative Urine Protein Negative mg/dL Negative Urine pH 5.0 5-9 Urine Blood Negative Negative Urine Ketones Negative mg/dL Negative Urine Bilirubin Negative Negative Urine Glucose Negative mg/dL Negative Urine WBC 1+ (<3 /hpf) None Seen Urine RBC 1+ (<3 /hpf) None Seen Urine Mucus Present /lpf Absent 1 PAIN IN RIGHT KNEE, EFFUSION, RIGHT KNEE, BILATERA 2 Because ethnic data is not always [...] 5 Kidney failure <15 (or dialysis) 3 Desirable: <150 Borderline High: 150-199 High: 200-499 Very High: >500 4 Desirable: <200 Borderline High: 200-239 High: >239 5 Low: <40 Desirable: 40-60 High: >60 6 Desirable: <100 Near Optimal: 100-129 Borderline High: 130-159 High: 160-189 Very High: >189 7 Because ethnic data is not always [...] dialysis) 8 SEE RESULT BELOW Name: JESSICA CALVO : [address]: Halima Turner MD Acct: [id number] Unit: [id number] AGE: 71 Location: [facility] Re07/27/17 SEX: M Status: REG REF SPEC: [id number] NESS: 07/27/17-1429 [facility] DR: Halima Turner MD REQ: [id number] RECD: 07/27/17 STATUS: MEL VALENCIA DR: Tom Lau III, MD _ SOURCE: URINE SPDESC: ORDERED: Urine Culture QUERIES: Urine Source: Clean Catch Procedure Result Reported Site Urine Culture Final 07/28/17- 1218 ML No Growth (<1,000 CFU/mL) * ML - Main Lab . END OF REPORT DEPARTMENT OF PATHOLOGY, [address] [place] [address] Kristopher Reveles M.D. Director [facility] # [id number] 9 SEE RESULT BELOW Name: JESSICA CALVO : [address]: Tom Lau III, MD Acct: [id number] Unit: [id number] AGE: 71 Location: [facility] Re01/08/17 SEX: M Status: REG REF SPEC: [id number] NESS: 01/08/17 [facility] [address]: Tom Lau III, MD REQ: [id number] RECD: 01/08/17 STATUS: COMP _ SOURCE: URINE SPDESC: ORDERED: Urine Culture Procedure Result Reported Site Urine Culture Final 01/10/17- 07 ML Organism 1 KLEBSIELLA OXYTOCA [place] Count >100,000 (Many) CFU/ML 1. KLEBSIELLA OXYTOCA [...] antibiotic reporting. * ML - MAIN LAB ([facility]) . END OF REPORT * ML=Testing performed at Main Lab DEPARTMENT OF PATHOLOGY, [address] [place] [address] Kristopher Reveles M.D. Director [facility] # [id number] 10 *Ascorbic acid is present which may interfere with detection of blood. 11 Serum levels of PSA measured using the Yosef Judd DXI Hybritech immunoassay should not be interpreted as absolute evidence of the presence or absence of disease. The PSA value should be used in conjunction with other pertinent clinical diagnostic procedures. The values obtained with different assay methods or kits cannot be used interchangeably. 12 PT IS FASTING 13 PT IS FASTING 14 PT IS FASTING 15 Desirable <150 Borderline high 150-199 High 200-499 Very High >500 16 Desirable <200 Borderline high 200-239 High >239 17 Low <40 Desirable: 40-60 High: >60 18 Desirable: <100 mg/dL Near Optimal: 100-129 mg/dL Borderline High: 130-159 mg/dL High: 160-189 mg/dL Very High: >189 mg/dL Procedures Date Code Description Status 06/17/2018 00529 TKR Total Knee Replacement Completed 06/17/2018 82017 TKR Total Knee Replacement Completed 06/03/2018 95822 EKG Tracing & Interpretation Completed 05/21/201889539 Inject/Drain Joint/Bursa Major W/O US Completed 12/04/2017 Inject/Drain Joint/Bursa Major W/O US Completed 08/05/201720187 THR Total Hip Replacement Completed 08/05/201752099 THR Total Hip Replacement Completed 06/05/2016 [id number] Colonoscopy Completed Encounters Type Date Location Provider Dx Diagnosis Office Visit 06/03/2018 [facility] Vero Roa Z01.810 Encounter for 10:20a Gustavo Lau M.D. preprocedural [place] cardiovascular examination M17.31 Unilateral post-traumatic osteoarthritis, right knee K50.90 Crohn's disease, unspecified, without complications K21.9 Gastro-esophageal reflux disease without esophagitis G25.81 Restless legs syndrome F34.1 Dysthymic disorder N40.0 Benign prostatic hyperplasia without lower urinry tract symp Z23 Encounter for immunization Z13.220 Encounter for screening for lipoid disorders R73.01 Impaired fasting glucose Office Visit 05/21/2018 8:45a [facility] Halima Turner, M25.562 Pain in left Of C.M.A. M.D. knee M25.561 Pain in right knee M25.462 Effusion, [...] primary osteoarthritis, left knee Office Visit 11/19/2017 [facility] Vero Roa K50.90 Crohn's disease, 3:00p Gustavo Lau M.D. unspecified, [place] without complications Office Visit 08/07/2017 [facility] Bonnie Marco A, R55 Syncope and 9:15a Assoc,pc N.P. collapse [...] Acute bronchitis, 4:20p Gustavo Lau M.D. unspecified Office Visit 07/17/2015 Santi Roa K50.90 Crohn's disease, 1:00p Gustavo Lau M.D. unspecified, without complications Office Visit 02/12/2015 Santi [facility] F41.8 Other specified 11:40a Gustavo Lau M.D. anxiety disorders Z23 Encounter for immunization Office Visit 09/04/2014 11:00a S[facility] V72.83 Examination Gustavo Lau M.D. Preoperative Other Spec 366.10 Cataract Senile Unspec v06.1 Jnnpidwhyk-Diojlzf-Ijgvsbis Combined (DTaP) v03.82 Streptococcus Pneumoniae Vaccination Spec Other 555.9 Enteritis Unspec Site 333.94 Restless Leg Syndrome 311 Depressive Disorder Not Elsewhere Spec Office Visit 05/02/2014 9:00a Santi Ro[facility] 311 Depressive Gustavo Lau M.D. Disorder Not Elsewhere Spec Office Visit 03/31/2014 9:00a [facility] Internal Tom E. 536.8 Stomach Dyspepsia Gustavo Lau M.D. & Other Spec Disorders Of Function 311 Depressive Disorder Not Elsewhere Spec Office Visit 11/16/2013 2:00p [facility] Internal Tom EMiriam 719.47 Pain Joint Ankle & Medicine Norberto Lau Foot Office Visit 09/01/2013 2:00p [facility] Tom EMiriam V72.84 Examination Medicine Norberto Lau Preoperative Unspec 719.45 Pain Joint Pelvic Region & Thigh 555.9 Enteritis Unspec Site 333.94 Restless Leg Syndrome 311 Depressive Disorder Not Elsewhere Spec Office Visit 03/08/2013 1:20p [facility] Internal Tom E. 311 Depressive Gustavo Lau M.D. Disorder Not Elsewhere Spec 333.94 Restless Leg Syndrome v04.81 Need For Prophylactic Vaccination & Inoculation/Influenza Office Visit 09/09/2012 1:00p [facility] Internal Tom EMiriam 333.94 Restless Leg Gustavo Lau M.D. Syndrome 311 Depressive Disorder Not Elsewhere Spec 821.00 FX Femur Closed Unspec Part 555.9 Enteritis Unspec Site Office Visit 08/18/2012 3:00p [facility] Tom EMiriam 788.41 Urinary Gustavo Lau M.D. Frequency 555.9 Enteritis Unspec Site 821.00 FX Femur Closed Unspec Part 333.94 Restless Leg Syndrome Plan of Treatment Future Appointment(s):10/27/2018 9:00 am - Haliam Turner M.D. at [facility].08/27/2018 - Halima Turner M.D.M25.561 Pain in right kneeFollow up:Follow up: NovemberM25.461 Effusion, right kneeZ47.1 Aftercare following joint replacement mjdxciuF25.651 Presence of right artificial knee joint
--- OUTSIDE RECORDS SUMMARY | 2018-08-27 12:07 | XMS REPORT | Continuity of Care Document ---
:1945 External Reference #:[id number] Author Name Qing Michael Care Team Providers Name Role Phone Tom Lau III, MD Primary Care Physician Unavailable Payers Date Identification Numbers Payment Provider Subscriber Effective: 2014 Policy Number: [id number] Medicare Blue Ppo Jessica Calvo PayID: [id number] [address] [address] [place] [address] Effective: 2008 Policy Number: [id number] Medicare Jessica Calvo Expires: 2014 PayID: [id number] [address] [place] [address] Effective: 2012 Policy Number: [id number] Of [facility] Jessica Calvo Expires: 2014 PayID: [id number] [address] [address] [place] [address] Effective: 2013 Policy Number: [id number] Tim[facility] Jessica Calvo Onset: 2012 PayID: [id number] [address] [address] [place] [address] Advance Directives Description No Information Available Problems [...] Localized, primary osteoarthritis Halima Turner M.D. Active Onset: 07/30/2018 Arthroplasty of knee Halima Turner M.D. Active Family History Description No Information Available Social History Type Date Description Comments Sex Unknown Marital Status Occupation Retired [employer] ETOH Use 03/08/2013 Occasionally consumes alcohol Tobacco Use Start: Unknown Patient has never smoked Smoking Status Reviewed: 07/30/18 Patient has never smoked Exercise Exercises regularly limited by knee pain Type/Frequency sx Allergies, Adverse Reactions, Alerts Description No Known Drug Allergies Medications Medication Date Status Form Strength Qnty SIG Indications Ordering Provider Diphenoxylate-At 07/15 Active Tablets 2.5-0.025 180ta 1 tab every Tom E. ropine mg bs 4-6 hours Judi, as needed M.D. for diarrhea Cyclobenzaprine 06/19 Active Tablets 10mg 30tab take 1 tab Halima HCL s three times Johnny, a day as M.D. needed for pain/muscle spasms Percocet 06/19 Active Tablets 5-325mg 70tab 1 tabs by Z96.652 Halima s mouth every Johnny, 4-6 hours M.D. as needed pain. S/P total knee. taking this dose in hosp and responding well Cholestyramine 04/30 Active Packet 4gm 180un mix 2 Tom E. its packets in Judi, liquid as M.D. directed and take by mouth daily Ranitidine HCL 12/21 Active Tablets 150mg 180ta take 1 Tom . bs tablet by Judi, mouth twice M.D. a day Temazepam 08/08 Active Capsules 15mg 30cap take one by Halima s mouth one Johnny, hour before M.D. bed as needed for sleep. BD TB Syringe 06/09 Active 15uni For Use Tom Roa 27GX1/2" ts With B-12 Judi, Injections M.D. BD 1ML 08/08 Active Misc 27G X 15uni to be used Tom Roa Tuberculin /05/12" 1 ML ts with vit b Judi Syringe/Safetygl 12 M.D. lady TB Needle injections 27GX1/2" Cyanocobalamin 08/08 Active Solution 1000mcg/M 25uni Inject 1ML Tom E. /2013 L ts Intramuscul laurie Lau Every M.D. Month Iron Active 25mg 1 tab daily Unknown Escitalopram Active Tablets 5mg 1/2 of a 10 Unknown Oxalate /0000 mg tab by mouth every day Tamsulosin HCL Active Capsules 0.4mg 1 by mouth Unknown every day Colace 06/19 Hx Capsules 100mg 90cap 1 tab by Halima s mouth three Johnny, - times a day M.D. 07/30 as needed constipatio n Eliquis 06/19 Hx Tablets 2.5mg 60tab take 1 tab Halima s every 12 Johnny, - hours x 4 M.D. 07/30 weeks post op Diphenoxylate-At 11/26 Hx Tablets 2.5-0.025 180ta take 2 Tom E. ropine /2018 mg bs tablets by Judi, - mouth 3 M.D. 07/13 times daily Diphenoxylate-At 11/19 Hx Tablets 180ta take 2 Tom E. ropine /2018 bs tablets 3 Judi, - times a [...] - a day for M.D. 11/16 four Questran 01/28 Hx Packet 4gm 180un Take 2 Tom E. its Packets By Judi, - Mouth Daily M.D. 04/30 as Directed Sulfamethoxazole 01/09 Hx Tablets 800-160mg 20tab 1 by mouth R30.0 Tom Roa /Trimethoprim s twice a day Carl Lau.DMiriam 01/22 Cholestyramine 10/21 Hx Packet 4gm 180un take 2 Tom Ho. its packets by Judi, - mouth daily M.D. 01/09 as directed Diphenoxylate-At 09/11 Hx Tablets 2.5-0.025 180ta take 1-2 Tom Roa rop mg bs tablets by uJdi, - mouth 3 M.D. 05/11 times daily as needed for diarrhea Xanax 02/12 Hx Tablets 1mg 20tab 1/2 tab to F41.9 Tom Roa /2014 s 1 tab po up Judi, - to 3 times M.D. 07/16 a day Bupropion HCL ER 05/02 Hx Tablets ER 300mg 90tab 1 by mouth F41.9 Tom Roa (XL) 24HR s every day Carl Lau M.D. 07/16 Bupropion HCL ER 03/31 Hx Tablets ER 150mg 30tab 1 by mouth 311 Nory Tijerina (XL) 24HR s every day Carl Joyce M.D.,FACP 05/02 Questran Light 10/05 Hx Packet 4gm 3mont 2 by mouth Tom Roa /2013 h every day Carl Lau M.D. 10/05 Questran Light 10/05 Hx Packet 4gm 3Mont 2 by mouth K50.90 Tom Rao /2013 h everyday Carl Lau M.D. 12/17 Requip 10/14 Hx Tablets 3mg 60tab 1 qd Vivian dorian Kate, - N.PMiriam 09/01 Mirapex 06/04 Hx Tablets 0.125mg 30tab 1 po 2-3 [...] bs tablets by Judi, - mouth 3 M.DMiriam 09/11 times a day /2015 as needed for diarrhea *max 6/day* Calcium 600 + D Hx Tablets 600-400mg 2 po qd -Unit - 09/04 [address] Ec Hx Tablets [address] 325mg 90tab 1 po qd Unknown / s - 11/16 Diphen Hx Tablets 25mg 2 po in the Unknown / am and 1 po - hs 08/18 Questran Hx Packet 4gm 180un 2 po qd E its Carl Lau M.D. 10/05 Citalopram Hx Tablets 40mg 60tab 1 po qd Tom Miriam Hydrobromide / s Carl Lau M.D. 09/01 Requip 00 Hx Tablets 3mg Unknown / - 10/12 Folic Acid Hx Capsules 5mg 14cap 1 po qd / s - 09/04 Naproxen Hx Tablets 30tab 1 by mouth Unknown / s twice a day - as needed 09/15 Prilosec OTC [address] 20mg 1 by mouth Unknown /0000 every day - 08/08 Cholestyramine 00/ Hx Packet 4gm Unknown Light / - 02/12 Colestipol HCL Hx Tablets 1gm 60tab 2 by mouth Unknown /0000 s every day - 07/16 Ranitidine HCL Hx Capsules 300mg 30cap 1 cap by Tom E. /0000 s mouth every Judi, - night M.D. 12/21 Lexapro Hx Tablets 5mg 1 by mouth Unknown /0000 every day - 12/17 Multivitamin Hx Tablets 1 by mouth Unknown Adult /0000 every day - 07/30 Azithromycin Hx Tablets 250mg Unknown /0000 - 12/17 Prednisone Hx Tablets 20mg Unknown /0000 - 12/17 Ventolin HFA Hx Aerosol 108(90Bas Unknown /0000 e) - mcg/Act 12/17 Flonase Allergy Hx Suspension 50mcg/Act spray 1 Unknown Relief spray in - each 01/22 nostr twice daily Colestipol HCL Hx Tablets 1gm twice daily Unknown - 01/09 Clonazepam Hx Tablets 0.5mg 1 tab daily Unknown /0000 - 01/09 Tramadol HCL Hx Tablets 50mg Jared, /0000 Jeff Motta - 05/20 Lomotil Hx Tablets 2.5-0.025 120ta take one Carlie /0000 mg bs tablet Kady, - every 6 M.D. 07/12 hours needed. max. daily dose: 4 tabs. Aspir-Low Hx Tablets DR 81mg 1 by mouth Unknown /0000 every day - 06/06 Naproxen Hx Tablets 500mg 1 tablet Unknown /0000 with food - by mouth 05/20 twice a day Medications Administered in Office Medication Date Status Form Strength Qnty SIG Indications Ordering Provider Depomedrol Administered Injection Halima 40MG Danilo Turner M.D. Depomedrol Administered Injection Halima 40MG 019 Norberto Turner Depomedrol Administered Injection Halima 40MG 018 Norberto Turner Immunizations CPT Code Status Date Vaccine Lot # [id number] Given 06/03/2018 Pneumonia Vaccine [id number] Given 01/27/2018 Fluzone High Dose 90915 Given 12/09/2017 Zoster (Shingles) Vaccine (HZV), Recombinant, Subunit, Adjuvanted 25382 Given 09/11/2017 Zoster (Zostavax) 19719 Given 03/26/2016 Fluzone High Dose 09206 Given 02/12/2015 Influenza Virus Vaccine, Quadrivalent, Split, [id number] Preservative Free 63040 Given 09/04/2014 Tdap - Tetanus/Diptheria/Acellular Pertussis [id number] 52886 Given 09/04/2014 Pneumococcal Conjugate Vaccine 13 Valent For [id number] Intramuscular Use 89420 Given 03/08/2013 Flu Vaccine Split Virus Preservative Free For [id number] Indiv 3Yr Older 70336 Given 05/11/2011 Zoster (Zostavax) 56781 Ordered 01/08/2017 Influenza Virus Vaccine, Quadrivalent, Split, Preservative Free Vital Signs Date Vital Result Comment 07/30/2018 10:38am Height 66 inches 5'6" Weight [...] Test Result H/L Range Note Inr/Protime 06/07/2018 [facility] Inr 0.82 N 0.77-1.[address] [place] [address] [phone] Laboratory test 06/07/2018 [facility] Partial 27.3 seconds N 26.0-36.[address] [place] [address] PTT [phone] Type & Screen 06/07/2018 [facility] Patient Blood A Positive [address] [place] [address] [phone] Antibody Screen NEGATIVE Basic Metabolic Panel 06/04/2018 [facility] Sodium 138 mmol/L N 135-[address] [place] [address] [phone] Potassium 4.0 mmol/L N 3.5-5.0 Chloride 105 mmol/L N 101-111 Co2 Carbon Dioxide 27 mmol/L N 22-32 Anion Gap 6 mmol/L N 2-11 Glucose 106 mg/dL High 70-100 Blood Urea Nitrogen 23 mg/dL N 6-24 Creatinine 0.93 mg/dL N 0.67-1.17 BUN/Creatinine Ratio 24.7 High 8-20 Calcium 9.2 mg/dL N 8.6-10.3 Egfr Non- 79.4 >60 Egfr 96.1 >60 2 CBC Auto Diff 06/04/2018 [facility] White Blood 10.4 10^3/uL N 3.5-10.[address] [place] [address] [phone] Red Blood Count 4.33 10^6/uL N 4.00-5.40 [...] Blood Cells % 0 Urinalysis Profile 06/04/2018 [facility] Urine Color Yellow [address] [place] [address] [phone] Urine Appearance Cloudy Urine Specific [place] 1.020 N 1.010-1.030 Urine pH 5.0 N 5-9 Urine Urobilinogen Negative Negative Urine Ketones Negative Negative Urine Protein Negative Negative Urine Leukocytes Negative Negative Urine Blood Negative Negative Urine Nitrite Negative Negative Urine Bilirubin Negative Negative Urine Glucose Negative Negative Lipid Profile 06/04/2018 [facility] Triglycerides 75 mg/dL 3 (Trig/Chol/HDL) [address] [place] [address] [phone] Cholesterol 128 mg/dL 4 HDL Cholesterol 59.1 mg/dL 5 LDL Cholesterol 54 mg/dL 6 Laboratory test 04/06/2018 [facility] PSA Screening 0.678 ng/mL N 0-4.0 finding [address] [place] [address] [phone] Laboratory test 10/02/2017 [facility] PSA Screening 0.626 ng/mL N 0-4.0 finding [address] [place] [address] [phone] Urinalysis 07/27/2017 [facility] Urine Color Yellow Profile [address] [place] [address] [phone] Urine Appearance Clear Urine Specific [place] 1.023 N 1.010-1.030 Urine pH 5.0 N 5-9 Urine Urobilinogen Negative Negative Urine Ketones Negative Negative Urine Protein Negative Negative Urine Leukocytes Negative Negative Urine Blood Negative Negative Urine Nitrite Negative Negative Urine Bilirubin Negative Negative Urine Glucose Negative Negative CBC Auto Diff 07/27/2017 [facility] White Blood 5.7 10^3/uL N 3.5-10.8 [address] [place] [address] [phone] Red Blood Count 4.19 10^6/uL N 4.0-5.4 [...] Red Blood Cells % 0 Inr/Protime 07/27/2017 [facility] Inr 0.82 N 0.77-1.[address] [place], [place] [address] [phone] Laboratory test 07/27/2017 [facility] Partial 29.7 seconds N 26.0-36.3 [address] [facility] [place] [address] Time PTT [phone] Urine Culture And 07/27/2017 [facility] Urine SEE RESULT [address] Culture BELOW [place], [place] [address] [phone] Type & Screen 07/27/2017 [facility] Patient A Positive [address] Blood Type [place], [place] [id number] [phone] Antibody Screen NEGATIVE Comp Metabolic Panel 07/27/2017 [facility] Sodium 138 mmol/L N 133-[address] [place], [place] [address] [phone] Potassium 4.1 mmol/L N 3.5-5.0 Chloride 105 [...] Egfr Non- 78.7 >60 Egfr 101.2 >60 8 Laboratory test 02/13/2017 [facility] Hepatitis C Nonreactive N Nonreactive finding [address] [place] [address] [phone] Urine Culture 01/08/2017 [facility] Urine SEE RESULT [address] [place] [address] [phone] Urinalysis 01/08/2017 [facility] Urine Color Yellow N Profile [address] [place] [address] [phone] Urine Appearance Cloudy N Urine Specific [place] 1.023 N 1.010-1.030 Urine pH 5.0 N [...] Sperm Present Abnormal Absent Laboratory test 01/08/2017 [facility] PSA Screening 2.805 N 0- 4.000 [address] ng/[place] [address] [phone] Lipid Profile 11/22/2014 [facility] Triglycerides 110 mg/dL N 12, 13 (Trig/Chol/HDL) [address] [place] [address] [phone] Cholesterol 121 mg/dL N 14 HDL Cholesterol 46.2 mg/dL N 15 LDL Cholesterol 53 mg/dL N 16 Laboratory test 11/22/2014 [facility] Glucose 105 mg/dL High 70-100 [address] [place] [address] [phone] Iron & Iron 11/22/2014 [facility] Unsaturated Iron [address] Binding [address] Binding g/[place] [address] [phone] Total Iron Binding Capacity 284 g/dL N 250-450 % Iron Saturation 22 % N 15-55 Laboratory test 11/22/2014 [facility] Ferritin 187.9 ng/mL N 24-336 [address] [place] [address] [phone] Iron 63 g/dL N 50-212 Iron & Iron Binding 09/09/2012 [facility] Iron 67 g/dL 45- [address] [place] [address] [phone] Unsaturated Iron Binding 298 g/dL Total Iron Binding Capacity 365 g/dL 250-450 % Iron Saturation 18 % 15-55 Laboratory test 08/24/2012 [facility] Erythrocyte Sed 19 mm/Hr 0-[address] [place] [address] [phone] C Reactive Protein < 0.5 mg/dL Less than 0.5 Urinalysis W/Microscopic 08/24/2012 [facility] Urine Color Yellow [address] [place] [address] [phone] Urine Appearance Clear Urine Specific [place] 1.021 1.010-1.030 Urine Esterase Negative Negative Urine [...] 130-159 High: 160-189 Very High: >189 7 SEE RESULT BELOW Name: JESSICA CALVO : [address]: Halima Turner MD Acct: [id number] Unit: [id number] AGE: 71 Location: [facility] Re07/27/17 SEX: M Status: REG REF SPEC: [id number] NESS: 07/27/17143 [facility] DR: Halima Turner MD REQ: [id number] RECD: 07/27/17 STATUS: MEL VALENCIA DR: Tom Lau III, MD _ SOURCE: URINE SPDESC: ORDERED: Urine Culture QUERIES: Urine Source: Clean Catch Procedure Result Reported Site Urine Culture Final 07/28/17- 1218 ML No Growth (<1,000 CFU/mL) * ML - Main Lab . END OF REPORT DEPARTMENT OF PATHOLOGY, [address] [place] [address] Kristopher Reveles M.D. Director [facility] # [id number] 8 Because ethnic data is not always readily [...] 15-29 5 Kidney failure <15 (or dialysis) 9 SEE RESULT BELOW Name: JESSICA CALVO : [address]: Tom Lau III, MD Acct: [id number] Unit: [id number] AGE: 71 Location: [facility] Re01/08/17 SEX: M Status: REG REF SPEC: [id number] NESS: 01/08/[address]: Tom Lau III, MD REQ: [id number] RECD: 01/08/17 STATUS: COMP _ SOURCE: URINE SPDESC: ORDERED: Urine Culture Procedure Result Reported Site Urine Culture Final 01/10/17- 0736 ML Organism 1 KLEBSIELLA OXYTOCA [place] Count >100,000 (Many) CFU/ML 1. KLEBSIELLA OXYTOCA [...] antibiotic reporting. * ML - MAIN LAB ([facility]) . END OF REPORT * ML=Testing performed at Main Lab DEPARTMENT OF PATHOLOGY, [address] [place] [address] Kristopher Reveles M.D. Director [facility] # [id number] 10 *Ascorbic acid is present which may interfere with detection of blood. 11 Serum levels of PSA measured using the [employer] [place] DXI Hybritech immunoassay should not be interpreted as absolute evidence of the presence or absence of disease. The PSA value should be used in conjunction with other pertinent clinical diagnostic procedures. The values obtained with different assay methods or kits cannot be used interchangeably. 12 PT IS FASTING 13 Desirable <150 Borderline high 150-199 High 200-499 Very High >500 14 Desirable <200 Borderline high 200-239 High >239 15 Low <40 Desirable: 40-60 High: >60 16 Desirable: <100 mg/dL Near Optimal: 100-129 mg/dL Borderline High: 130-159 mg/dL High: 160-189 mg/dL Very High: >189 mg/dL 17 PT IS FASTING 18 PT IS FASTING Procedures Date Code Description Status 06/17/2018 34042 TKR Total Knee Replacement Completed 06/17/2018 50938 TKR Total Knee Replacement Completed 06/03/2018 35739 EKG Tracing & Interpretation Completed 05/21/2018 90760 Inject/Drain Joint/Bursa Major W/O US Completed 12/04/201770814 Inject/Drain Joint/Bursa Major W/O US Completed 08/05/201717316 THR Total Hip Replacement Completed 08/05/201721819 THR Total Hip Replacement Completed 06/05/2016 97457494 Colonoscopy Completed Encounters Type Date Location Provider Dx Diagnosis Office Visit 06/03/2018 [facility] Vero Roa Z01.810 Encounter for 10:20a Gustavo Lau M.D. 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 unspecified, [place] without complications Office Visit 08/07/2017 [facility] Bonnie Marco A, R55 Syncope and 9:15a Assoc,pc N.P. collapse Hospitalists K50.90 Crohn's disease, unspecified, without complications K21.9 Gastro-esophageal reflux disease without esophagitis Z96.641 Presence of right artificial hip joint Office Visit 07/28/2017 [facility] Vero Roa Z01.810 Encounter for [...] osteoarthritis, right C.M.A. hip Office Visit 01/09/2017 [facility] Vero Roa R30.0 Dysuria 11:00a Gustavo Lau M.D. [place] Office Visit 08/09/2015 [facility] [place] J20.9 Acute bronchitis, 4:20p Gustavo Lau M.D. unspecified [place] Office Visit 07/17/2015 [facility] Vero Roa K50.90 Crohn's disease, 1:00p Gustavo Lau M.D. unspecified, without [place] complications Office Visit 02/12/2015 [facility] Vero Ro[place] F41.8 Other specified 11:40a Gustavo Lau M.D. anxiety disorders [place] Z23 Encounter for immunization Office Visit 09/04/2014 11:00a [facility] Vero Ro[place] V72.83 Examination Gustavo Lau M.D. Preoperative Other [place] Spec 366.10 Cataract Senile Unspec v06.1 Oeplqpvode-Msiorbf-Gmbtortn Combined (DTaP) v03.82 Streptococcus Pneumoniae Vaccination Spec Other 555.9 Enteritis Unspec Site 333.94 Restless Leg Syndrome 311 Depressive Disorder Not Elsewhere Spec Office Visit 05/02/2014 9:00a [facility] Internal Tom Roa 311 Depressive Gustavo Lau M.D. Disorder Not [place] Elsewhere Spec Office Visit 03/31/2014 9:00a [employer] Internal Tom Roa 536.8 Stomach Dyspepsia Gustavo Lau M.D. & Other Spec [place] Disorders Of Function 311 Depressive Disorder Not Elsewhere Spec Office Visit 11/16/2013 2:00p [employer] Internal Tom Roa 719.47 Pain Joint Ankle & Gustavo Lau M.D. Foot [place] Office Visit 09/01/2013 2:00p [facility] Internal Tom Roa V72.84 Examination Gustavo Lau M.D. Preoperative [place] Unspec 719.45 Pain Joint Pelvic Region & Thigh 555.9 Enteritis Unspec Site 333.94 Restless Leg Syndrome 311 Depressive Disorder Not Elsewhere Spec Office Visit 03/08/2013 1:20p [facility] Internal Tom Roa 311 Depressive Gustavo Lau M.D. Disorder Not [place] Elsewhere Spec 333.94 Restless Leg Syndrome v04.81 Need For Prophylactic Vaccination & Inoculation/Influenza Office Visit 09/09/2012 1:00p Santi Roa 333.94 Restless Leg Gustavo Lau M.D. Syndrome [place] 311 Depressive Disorder Not Elsewhere Spec 821.00 FX Femur Closed Unspec Part 555.9 Enteritis Unspec Site Office Visit 08/18/2012 3:00p [facility] Internal Tom Roa 788.41 Urinary Gustavo Lau M.D. Frequency [place] 555.9 Enteritis Unspec Site 821.00 FX Femur Closed Unspec Part 333.94 Restless Leg Syndrome Plan of Treatment Future Appointment(s):08/27/2018 9:15 am - Halima Turner M.D. at [facility]07/30/2018 - Halima Turner M.D.M25.561 Pain in right kneeFollow up:Follow up: 4 oylupW51.461 Effusion, right kneeZ47.1 Aftercare following joint replacement mshjhqpK78.651 Presence of right artificial knee joint
[2018-08-27 12:09] VITALS: BP 108/73
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
== END 2018-08-27 12:32 | disposition home or self-care (01) ==
LOC: UCEAST 11:59
DX: S70.361A Insect bite (nonvenomous), right thigh, initial encounter (principal); W57.XXXA Bitten or stung by nonvenomous insect and other nonvenomous arthropods, initial encounter; Y92.9 Unspecified place or not applicable; E78.5 Hyperlipidemia, unspecified; Z79.82 Long term (current) use of aspirin; Z96.642 Presence of left artificial hip joint; Z87.891 Personal history of nicotine dependence
CPT/HCPCS: 99212; G0463

== ENCOUNTER 2018-09-21 17:53 | Emergency (ER) | payer MEDICARE ==
--- OUTSIDE RECORDS SUMMARY | 2018-09-21 17:59 | XMS REPORT | Continuity of Care Document ---
:1945 External Reference #:[id number] Author Name Carlos Rucker, OD Address Formerly [facility] [address] [address] [place] [address] Care Team Providers Name Role Phone Tom Lau MD Care Team Information R Developer Unavailable Tom Lau MD Primary Care Physician Unavailable Payers Date Identification Numbers Payment Provider Subscriber Policy Number: [id number] BS Medicare Aldair Gordon PayID: [id number] [address] [address] [place] [address] Problems Active Problems Provider Date Other secondary cataract, bilateral Carlos Prather O.D. Onset: 04/19/2015 Lens Replaced By Other Means Carlos Prather O.D. Onset: 09/26/2014 Status Post Surgery Jose Anthony M.D. Onset: 09/13/2014 Presbyopia Carlos Prather O.D. Onset: 11/28/2013 Vitreous degeneration Carlos Prather O.D. Onset: 11/28/2013 Nuclear senile cataract Carlos Prather O.D. Onset: 11/28/2013 Degenerative progressive high myopia Carlos Prather O.D. Onset: 11/28/2013 Family History Date Family Member(s) Observation Comments Father due to aortic embulism () Father Glasses Father Heart Disease Mother due to Lung Cancer () Mother Glasses Mother Cancer Social History Type Date Description Comments Sex Unknown ETOH Use Currently consumes alcohol Tobacco Use Start: Unknown End: Unknown Patient is a former smoker Smoking Status Reviewed: 09/17/18 Patient is a former smoker Allergies, Adverse Reactions, Alerts Active Allergies Reaction Severity Comments Date NKDA 11/28/2013 Seasonal 11/28/2013 Medications Active Medications SIG Qnty Indications Ordering Provider Date Cholestyramine Unknown 4gm Packet Lamotrigine Lamictal Unknown Powder Bupropion HCL Unknown Tablets Aspir-Low Unknown 81mg Tablets Prilosec Unknown Capsules DR Flomax Unknown 0.4mg Capsules Eliquis Unknown 2.5mg Tablets Escitalopram Oxalate Unknown 10mg Tablets History Medications Vigamox 1 drop drops 5ml Jose Anthony, 08/25/2014 - 0.5% Solution right eye four M.D. 09/26/2014 times a day Ketorolac Tromethamine 1 drops right 10ml Jose Anthony, 08/25/2014 - 0.5% eye twice a day M.D. 10/18/2014 Solution Prednisolone Acetate 1 drop right eye 10ml Jose Anthony, 08/25/2014 - 1% four times a day M.D. 10/18/2014 Suspension Paroxetine HCL Unknown - 20mg Tablets 09/17/2018 Vital Signs Date Vital Result Comment 05/18/2017 9:34am Intraocular Pressure Right Eye 14 mmHg Intraocular Pressure Left Eye 14 mmHg 04/25/2016 9:32am Intraocular Pressure Right Eye 16 mmHg Intraocular Pressure Left Eye 16 mmHg 04/19/2015 10:54am Intraocular Pressure Right Eye 10 mmHg Intraocular Pressure Left Eye 10 mmHg 10/18/2014 9:44am Intraocular Pressure Right Eye 14 mmHg Intraocular Pressure Left Eye 14 mmHg 09/26/2014 10:00am Intraocular Pressure Right Eye 15 mmHg Intraocular Pressure Left Eye 15 mmHg 09/20/2014 10:22am Intraocular Pressure Right Eye 14 mmHg Intraocular Pressure Left Eye 15 mmHg 09/13/2014 9:49am Intraocular Pressure Right Eye 14 mmHg 08/24/2014 8:20am Intraocular Pressure Right Eye 13 mmHg Intraocular Pressure Left Eye 13 mmHg 06/12/2014 8:34am Intraocular Pressure Right Eye 13 mmHg Intraocular Pressure Left Eye 13 mmHg 11/28/2013 10:36am Intraocular Pressure Right Eye 12 mmHg Intraocular Pressure Left Eye 12 mmHg Procedures Date Code Description Status 05/18/2017 78048 Eye Exam Est Intermediate Completed 04/25/2016 64213 Ophthalmoscopy Subsequent Completed 04/25/2016 15324 Refraction Completed 04/25/2016 75034 Eye Exam Est Comprehensive Completed 10/25/2015 38397 Eye Exam Est Intermediate Completed 04/19/2015 25792 Eye Exam Est Intermediate Completed 09/19/2014 43336 Extracapsular Cataract Extraction W/Intraocular Lens Completed 09/12/2014 87836 Extracapsular Cataract Extraction W/Intraocular Lens Completed 09/07/2014 19421 Eye Exam Est Intermediate Completed 08/24/2014 60927 Ophthalmic Biometry By Partial Coherence Interferometry Completed W/Intra 08/24/2014 56229 Eye Exam Est Intermediate Completed 06/12/2014 62472 Refraction Completed 06/12/2014 09065 Eye Exam Est Intermediate Completed 11/28/2013 96965 Ophthalmoscopy Initial Completed 11/28/2013 45249 Refraction Completed 11/28/2013 55069 Eye Exam New Comprehensive Completed 11/28/2013 301 Contact Lens Fit $25 Completed Plan of Treatment 05/18/2017 - Jose Anthony M.D.H26.493 Other secondary cataract, [id number] Vitreous degeneration, left eyeFollow up:1 yr
--- OUTSIDE RECORDS SUMMARY | 2018-09-21 17:59 | XMS REPORT | Continuity of Care Document ---
:1945 External Reference #:[id number] Author Name Carlos Rucker, OD Address Formerly [facility] [address] [place] [address] Care Team Providers Name Role Phone Tom Lau MD Care Team Information Senior Patrol Agent Unavailable Tom Lua MD Primary Care Physician Unavailable Payers Date Identification Numbers Payment Provider Subscriber Policy Number: [id number] BS Medicare Aldair Gordon PayID: [id number] [address] [address] [place] [address] Problems Active Problems Provider Date Other secondary [...] mmHg Procedures Date Code Description Status 05/18/2017 18474 Eye Exam Est Intermediate Completed 04/25/2016 93122 Ophthalmoscopy Subsequent Completed 04/25/2016 55447 Refraction Completed 04/25/2016 40981 Eye Exam Est Comprehensive Completed 10/25/2015 21761 Eye Exam Est Intermediate Completed 04/19/2015 99730 Eye Exam Est Intermediate Completed 09/19/2014 40415 Extracapsular Cataract Extraction W/Intraocular Lens Completed 09/12/2014 85347 Extracapsular Cataract Extraction W/Intraocular Lens Completed 09/07/2014 58211 Eye Exam Est Intermediate Completed 08/24/2014 40105 Ophthalmic Biometry By Partial Coherence Interferometry Completed W/Intra 08/24/2014 00039 Eye Exam Est Intermediate Completed 06/12/2014 56457 Refraction Completed 06/12/2014 87625 Eye Exam Est Intermediate Completed 11/28/2013 52398 Ophthalmoscopy Initial Completed 11/28/2013 28862 Refraction Completed 11/28/2013 33346 Eye Exam New Comprehensive Completed 11/28/2013 301 Contact Lens Fit $25 Completed Plan of Treatment 04/25/2016 - Jose Anthony M.D.H26.493 Other secondary cataract, bilateralFollow up:1 yr or prn for CL [id number] Vitreous degeneration, left eyeFollow up:1 yr or prn for CL fitting
[2018-09-21 18:09] VITALS: BP 142/80
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
[2018-09-21] MEDS ORDERED: Sulfamethox/Trimethoprim DS 800/160* TAB PO ONE (18:51)
--- NOTE | 2018-09-23 18:40 | UC ---
- Progress Note Progress Note: 09/23/2018 Urine culture positive for Klebsiella Aerogenes. Pt Rx Bactrim PO which covers it Final sensitivity reports still pending. No change Gloria Johnson PA-C Course/Dx - Diagnoses Provider Diagnoses: UTI (urinary tract infection) Discharge - Sign-Out/Discharge Documenting (check all that apply): Post-Discharge Follow Up All imaging exams completed and their final reports reviewed: No Studies - Discharge Plan Condition: Stable Disposition: HOME Prescriptions: Sulfamethox/Trimethoprim DS* [Bactrim DS 800/160 TAB*] 1 tab PO BID #19 tab Patient Education Materials: Urinary Tract Infection in Men (ED) Referrals: Tom Lau MD [Primary Care Provider] - Additional Instructions: Your urine test in the clinic today is suggestive of a urinary tract infection. We will start you on an antibiotic to treat for the infection. We will also send a urine culture today to see what bacteria grow out and make sure the antibiotic you were prescribed is appropriate to treat the infection. It will take 48-72 hours to get these results. We will contact you if there is any change in your treatment plan. Start Bactrim DS 1 tablet twice a day for 10 days. He was given the first dose in the clinic. Be sure to finish the entire course even if feeling better. Be sure to keep your appointment with your urologist as scheduled tomorrow. Seek immediate medical attention in the emergency room if you develop a fever greater than 100.5 F, have severe abdominal pain, pain in her sides, testicular pain, persistent vomiting, or any worsening of symptoms. - Billing Disposition and Condition Condition: STABLE Disposition: Home
== END 2018-09-21 19:10 | disposition home or self-care (01) ==
LOC: UCEAST 17:53
DX: N39.0 Urinary tract infection, site not specified (principal); I10 Essential (primary) hypertension; Z87.891 Personal history of nicotine dependence
CPT/HCPCS: 81003; 87077; 87086; 87186; 99212; A9270-GY; G0463